=== PATIENT | male | born 1955 | race Caucasian/White ===

== ENCOUNTER 2017-06-14 09:39 | Emergency (ER) | payer OTHER ==
[~2017-06-14] VITALS: Ht 177.8 cm; Wt 70.8 kg
[2017-06-14 10:06] VITALS: BP_SYST 176
[2017-06-14] MEDS ORDERED: ACETAMINOPHEN/CODEINE 300 MG-30 MG TABLET PO ONE (11:00)
[2017-06-14 11:38] VITALS: BP_SYST 177
== END 2017-06-14 11:38 | disposition home or self-care (01) ==
LOC: SED 09:39
DX: S32.10XA Unspecified fracture of sacrum, initial encounter for closed fracture (principal); S32.2XXA Fracture of coccyx, initial encounter for closed fracture; S00.03XA Contusion of scalp, initial encounter; I13.11 Hypertensive heart and chronic kidney disease without heart failure, with stage 5 chronic kidney disease, or end stage renal disease; E11.22 Type 2 diabetes mellitus with diabetic chronic kidney disease; N18.6 End stage renal disease; Z99.2 Dependence on renal dialysis; Z85.828 Personal history of other malignant neoplasm of skin; W19.XXXA Unspecified fall, initial encounter; Y93.89 Activity, other specified; Y92.091 Bathroom in other non-institutional residence as the place of occurrence of the external cause; Y99.8 Other external cause status
CPT/HCPCS: 70450-TC; 72220-TC; 99284

== ENCOUNTER 2018-02-14 11:06 | Inpatient (IN) | payer OTHER, MEDICAID ==
[~2018-02-14] VITALS: Ht 177.8 cm; Wt 74.2 kg
[~2018-02-14 11:06] MED LIST: ALLO100T PO; CARV12.548 PO; CEL20 PO; CLOP75TA2 PO; ISOS60TA4 PO; LIP20 PO; MELA3TAB PO; NEPH PO; TAMS-11 PO; VITD2000 PO
[2018-02-14 11:07] VITALS: BP_SYST 156
[2018-02-14] MEDS ORDERED: NACL 0.9% 1,000 ML IV ONE (11:45)
[2018-02-14] MEDS ORDERED: ASPIRIN 81 MG TAB.CHEW PO ONE (11:45)
[2018-02-14 12:38] LABS: CALCIUM 8.3 mg/dL (8.4-11.0); POTASSIUM 5.4 mmol/L (3.5-5.1)
[2018-02-14 12:40] LABS: BASOPHILS % (AUTO) 0.1 % (0.0-2.0); HEMATOCRIT 32.9 % (36-54); HEMOGLOBIN 10.4 g/dL (14.0-18.0); LYMPHOCYTES # (AUTO) 1.2 K/uL (1.0-5.5); LYMPHOCYTES % (AUTO) 6.7 % (20.5-51.5); MEAN CORPUSCULAR HEMOGLOBIN 28 pg (27-31); MEAN CORPUSCULAR HGB CONC 32 % (32-36); MEAN CORPUSCULAR VOLUME 88 fL (79.0-98.0); MONOCYTES % (AUTO) 5.5 % (1.7-9.3); NEUTROPHILS # (AUTO) 16.1 K/uL (1.8-7.7); NEUTROPHILS % (AUTO) 87.7 % (40.0-70.0); PLATELET COUNT (AUTO) 226 K/uL (130-430); RED BLOOD CELL COUNT(AUTO) 3.75 MIL/uL (4.2-6.2)
[2018-02-14 12:45] LABS: TOTAL BILIRUBIN 0.6 mg/dL (0.0-1.0)
[2018-02-14 12:46] LABS: ALBUMIN 3.1 g/dL (3.4-4.8)
[2018-02-14 12:47] LABS: CREATININE 7.79 mg/dL (0.55-1.30)
[2018-02-14 12:49] LABS: WHITE BLOOD COUNT (AUTO) 18.3 K/uL (4.8-10.8)
[2018-02-14 12:50] LABS: INR 1.1 (0.80-1.20); PROTHROMBIN TIME 11.1 SECS (9.5-12.5)
[2018-02-14] MEDS ORDERED: SODIUM POLYSTYRENE SULFONATE 15 GM/60 ML UDBTL PO ONE (13:15)
[2018-02-14] MEDS ORDERED: PIPERACILLIN/TAZO 3.375 GM in NS 50 ML IV ONE (13:30)
[2018-02-14] MEDS ORDERED: PIPERACILLIN/TAZOBACTAM 3.375 GM/VIAL (ZOSYN) IV ONE (14:26)
[2018-02-14 15:02] VITALS: BP_SYST 152
[2018-02-14] MEDS ORDERED: HYDROcodone/ACETAMIN 10-325 MG TAB PO PRN (15:30)
[2018-02-14] MEDS ORDERED: HYDROcodone/ACETAMIN 5-325 MG TAB (NORCO/ VICODIN) PO PRN (15:30)
[2018-02-14] MEDS: PIPERACILLIN/TAZO 2.25G/DEX-IS 50 ML IV SCH (17:32)
[2018-02-14 19:00] VITALS: BP_SYST 138
[2018-02-14 19:19] VITALS: BP_SYST 140
[2018-02-14 20:00] VITALS: BP_SYST 138
[2018-02-14] MEDS ORDERED: NITROGLYCERIN 0.4 MG TAB.SUBL SL PRN (20:45)
[2018-02-14] MEDS ORDERED: MORPHINE 2 MG/ML INJ. SYRINGE IVP PRN (20:45)
[2018-02-14] MEDS ORDERED: NITROGLYCERIN 0.4 MG TAB.SUBL SL ONE (20:52)
[2018-02-15 00:17] VITALS: BP_SYST 136
[2018-02-15] MEDS: CARVEDILOL 12.5 MG TABLET (COREG) PO SCH ×3 (00:21→21:00)
[2018-02-15] MEDS: PIPERACILLIN/TAZO 2.25G/DEX-IS 50 ML IV SCH ×4 (00:22→23:10)
[2018-02-15] MEDS: NORMAL SALINE 5 ML DISP.SYRIN IVF SCH ×4 (00:24→21:08)
[2018-02-15 06:45] LABS: CALCIUM 8.6 mg/dL (8.4-11.0); CREATININE 4.86 mg/dL (0.55-1.30); PHOSPHORUS 4.4 mg/dL (2.7-4.5); POTASSIUM 3.6 mmol/L (3.5-5.1)
[2018-02-15 07:27] LABS: BASOPHILS % (AUTO) 0.1 % (0.0-2.0); EOSINOPHILS % (AUTO) 0.2 % (0.0-4.0); HEMATOCRIT 29.6 % (36-54); HEMOGLOBIN 9.8 g/dL (14.0-18.0); LYMPHOCYTES # (AUTO) 0.6 K/uL (1.0-5.5); MEAN CORPUSCULAR HEMOGLOBIN 29 pg (27-31); MEAN CORPUSCULAR HGB CONC 33 % (32-36); MEAN CORPUSCULAR VOLUME 88 fL (79.0-98.0); MONOCYTES # (AUTO) 0.7 K/uL (0.0-1.0); MONOCYTES % (AUTO) 5.3 % (1.7-9.3); NEUTROPHILS # (AUTO) 11.5 K/uL (1.8-7.7); PLATELET COUNT (AUTO) 201 K/uL (130-430); RED BLOOD CELL COUNT(AUTO) 3.34 MIL/uL (4.2-6.2); RED CELL DISTRIBUTION WIDTH 17.4 % (9.0-15.0); WHITE BLOOD COUNT (AUTO) 12.8 K/uL (4.8-10.8)
[2018-02-15 08:05] VITALS: BP_SYST 123
[2018-02-15] MEDS: ATORVASTATIN 20 MG TABLET PO SCH (09:15)
[2018-02-15] MEDS: NEPHROVITE, (FOLIC ACID/VITAMIN B COMP W-C 1 TAB) PO SCH (09:15)
[2018-02-15] MEDS: TAMSULOSIN HCL 0.4 MG CAP PO SCH (09:15)
[2018-02-15] MEDS: CHOLECALCIFEROL (VITAMIN D3) 2,000 UNIT TABLET PO SCH (09:15)
[2018-02-15] MEDS: CITALOPRAM HYDROBROMIDE 20 MG TABLET PO SCH (09:15)
[2018-02-15] MEDS: CLOPIDOGREL BISULFATE 75 MG TABLET PO SCH (09:16)
[2018-02-15] MEDS: ISOSORBIDE MONONITRATE 30 MG TAB.ER.24H PO SCH (09:16)
[2018-02-15] MEDS: ALLOPURINOL 100 MG TABLET (ZYLOPRIM) PO SCH (09:17)
[2018-02-15 11:04] LABS: NEUTROPHILS % (AUTO) 89.4 % (40.0-70.0)
[2018-02-15 12:40] VITALS: BP_SYST 104
[2018-02-15 13:11] VITALS: BP_SYST 98
[2018-02-15 20:42] VITALS: BP_SYST 100
[2018-02-15] MEDS ORDERED: VANCOMYCIN HCL 1,000 MG in NS 250 ML IV SCH (21:00)
[2018-02-16 02:12] VITALS: BP_SYST 107
[2018-02-16] MEDS: PIPERACILLIN/TAZO 2.25G/DEX-IS 50 ML IV SCH ×3 (05:06→21:33)
[2018-02-16] MEDS: NORMAL SALINE 5 ML DISP.SYRIN IVF SCH ×3 (05:07→21:32)
[2018-02-16 06:39] LABS: BASOPHILS % (AUTO) 0.3 % (0.0-2.0); EOSINOPHILS # (AUTO) 0.1 K/uL (0.0-0.4); EOSINOPHILS % (AUTO) 0.8 % (0.0-4.0); HEMATOCRIT 27.1 % (36-54); HEMOGLOBIN 8.7 g/dL (14.0-18.0); LYMPHOCYTES % (AUTO) 8.4 % (20.5-51.5); MEAN CORPUSCULAR HEMOGLOBIN 29 pg (27-31); MEAN CORPUSCULAR HGB CONC 32 % (32-36); MEAN CORPUSCULAR VOLUME 89 fL (79.0-98.0); MONOCYTES # (AUTO) 0.6 K/uL (0.0-1.0); MONOCYTES % (AUTO) 4.9 % (1.7-9.3); NEUTROPHILS # (AUTO) 9.8 K/uL (1.8-7.7); NEUTROPHILS % (AUTO) 85.6 % (40.0-70.0); PLATELET COUNT (AUTO) 188 K/uL (130-430); RED BLOOD CELL COUNT(AUTO) 3.03 MIL/uL (4.2-6.2); RED CELL DISTRIBUTION WIDTH 16.7 % (9.0-15.0); WHITE BLOOD COUNT (AUTO) 11.5 K/uL (4.8-10.8)
[2018-02-16 07:02] LABS: CALCIUM 7.8 mg/dL (8.4-11.0); CREATININE 6.57 mg/dL (0.55-1.30); POTASSIUM 3.5 mmol/L (3.5-5.1)
[2018-02-16 07:19] LABS: ALBUMIN 2.3 g/dL (3.4-4.8); PHOSPHORUS 5.7 mg/dL (2.7-4.5); TOTAL BILIRUBIN 0.6 mg/dL (0.0-1.0)
[2018-02-16 08:00] VITALS: BP_SYST 103
[2018-02-16] MEDS: ACETAMINOPHEN 325 MG TABLET PO PRN (08:28)
[2018-02-16] MEDS: ISOSORBIDE MONONITRATE 30 MG TAB.ER.24H PO SCH (09:00)
[2018-02-16] MEDS: CARVEDILOL 12.5 MG TABLET (COREG) PO SCH ×2 (09:00→21:31)
[2018-02-16] MEDS: CHOLECALCIFEROL (VITAMIN D3) 2,000 UNIT TABLET PO SCH (09:01)
[2018-02-16] MEDS: ATORVASTATIN 20 MG TABLET PO SCH (09:01)
[2018-02-16] MEDS: CITALOPRAM HYDROBROMIDE 20 MG TABLET PO SCH (09:01)
[2018-02-16] MEDS: NEPHROVITE, (FOLIC ACID/VITAMIN B COMP W-C 1 TAB) PO SCH (09:01)
[2018-02-16] MEDS: TAMSULOSIN HCL 0.4 MG CAP PO SCH (09:01)
[2018-02-16] MEDS: CLOPIDOGREL BISULFATE 75 MG TABLET PO SCH (09:01)
[2018-02-16] MEDS: ALLOPURINOL 100 MG TABLET (ZYLOPRIM) PO SCH (09:01)
[2018-02-16 09:20] LABS: C-REACTIVE PROTEIN QUANT 32.6 mg/dL (0-0.5)
[2018-02-16 10:44] LABS: ERYTHROCYTE SEDIMENTATION RATE 108 MM/HR (0-15)
[2018-02-16 11:42] VITALS: BP_SYST 126
[2018-02-16] MEDS ORDERED: LOSARTAN POTASSIUM 25 MG TABLET PO ONE (13:35)
[2018-02-16 15:01] VITALS: BP_SYST 106
[2018-02-16] MEDS ORDERED: VANCOMYCIN HCL 1,000 MG in NS 250 ML IV ONE (18:00)
[2018-02-16 20:58] VITALS: BP_SYST 142
[2018-02-17 02:41] VITALS: BP_SYST 116
[2018-02-17] MEDS: PIPERACILLIN/TAZO 2.25G/DEX-IS 50 ML IV SCH ×2 (05:00→13:08)
[2018-02-17] MEDS: NORMAL SALINE 5 ML DISP.SYRIN IVF SCH ×3 (05:05→21:08)
[2018-02-17 06:13] LABS: BASOPHILS % (AUTO) 0.1 % (0.0-2.0); EOSINOPHILS # (AUTO) 0.1 K/uL (0.0-0.4); EOSINOPHILS % (AUTO) 0.9 % (0.0-4.0); HEMATOCRIT 28.5 % (36-54); HEMOGLOBIN 9.4 g/dL (14.0-18.0); LYMPHOCYTES % (AUTO) 10.2 % (20.5-51.5); MEAN CORPUSCULAR HEMOGLOBIN 29 pg (27-31); MEAN CORPUSCULAR HGB CONC 33 % (32-36); MEAN CORPUSCULAR VOLUME 89 fL (79.0-98.0); MONOCYTES # (AUTO) 0.6 K/uL (0.0-1.0); NEUTROPHILS # (AUTO) 8.5 K/uL (1.8-7.7); NEUTROPHILS % (AUTO) 82.8 % (40.0-70.0); PLATELET COUNT (AUTO) 202 K/uL (130-430); RED BLOOD CELL COUNT(AUTO) 3.21 MIL/uL (4.2-6.2); RED CELL DISTRIBUTION WIDTH 17.2 % (9.0-15.0); WHITE BLOOD COUNT (AUTO) 10.2 K/uL (4.8-10.8)
[2018-02-17 06:43] LABS: CALCIUM 8.4 mg/dL (8.4-11.0); CREATININE 5.36 mg/dL (0.55-1.30); PHOSPHORUS 4.9 mg/dL (2.7-4.5); POTASSIUM 3.4 mmol/L (3.5-5.1)
[2018-02-17 07:34] LABS: C-REACTIVE PROTEIN QUANT 24.1 mg/dL (0-0.5)
[2018-02-17] MEDS: CITALOPRAM HYDROBROMIDE 20 MG TABLET PO SCH (07:57)
[2018-02-17] MEDS: ALLOPURINOL 100 MG TABLET (ZYLOPRIM) PO SCH (07:57)
[2018-02-17] MEDS: CARVEDILOL 12.5 MG TABLET (COREG) PO SCH ×2 (07:57→21:07)
[2018-02-17] MEDS: NEPHROVITE, (FOLIC ACID/VITAMIN B COMP W-C 1 TAB) PO SCH (07:57)
[2018-02-17] MEDS: ATORVASTATIN 20 MG TABLET PO SCH (07:58)
[2018-02-17] MEDS: LOSARTAN POTASSIUM 25 MG TABLET PO SCH (07:58)
[2018-02-17] MEDS: CHOLECALCIFEROL (VITAMIN D3) 2,000 UNIT TABLET PO SCH (07:58)
[2018-02-17] MEDS: CLOPIDOGREL BISULFATE 75 MG TABLET PO SCH (07:58)
[2018-02-17] MEDS: ISOSORBIDE MONONITRATE 30 MG TAB.ER.24H PO SCH (07:58)
[2018-02-17 07:59] LABS: ERYTHROCYTE SEDIMENTATION RATE 112 MM/HR (0-15)
[2018-02-17 08:00] VITALS: BP_SYST 135
[2018-02-17] MEDS: ACETAMINOPHEN 325 MG TABLET PO PRN ×2 (08:00→16:35)
[2018-02-17] MEDS: TAMSULOSIN HCL 0.4 MG CAP PO SCH (08:54)
[2018-02-17] MEDS ORDERED: POTASSIUM CHLORIDE 20 MEQ TAB.PRT.SR PO ONE (10:00)
[2018-02-17 13:40] VITALS: BP_SYST 101
[2018-02-17] MEDS: NAFCILLIN SODIUM 2 GM in NS 100 ML IV SCH ×3 (15:31→23:28)
[2018-02-17] MEDS: cefTRIAXone 2 GM in D5W 50 ML IV SCH (16:11)
[2018-02-17 17:14] VITALS: BP_SYST 99
[2018-02-17] MEDS ORDERED: IPRATROPIUM/ALBUTEROL SULFATE 3 ML AMPUL.NEB (DUONEB) INH PRN (17:15)
[2018-02-17 23:01] VITALS: BP_SYST 103
[2018-02-18] MEDS: ACETAMINOPHEN 325 MG TABLET PO PRN ×2 (04:16→13:49)
[2018-02-18] MEDS: NAFCILLIN SODIUM 2 GM in NS 100 ML IV SCH ×6 (04:17→22:29)
[2018-02-18] MEDS: NORMAL SALINE 5 ML DISP.SYRIN IVF SCH ×3 (06:53→21:49)
[2018-02-18 07:04] LABS: CALCIUM 7.9 mg/dL (8.4-11.0); CREATININE 6.78 mg/dL (0.55-1.30); PHOSPHORUS 6.2 mg/dL (2.7-4.5); POTASSIUM 4.2 mmol/L (3.5-5.1); VANCOMYCIN,RANDOM 21.9 ug/mL
[2018-02-18 07:18] LABS: BASOPHILS % (AUTO) 0.2 % (0.0-2.0); EOSINOPHILS # (AUTO) 0.1 K/uL (0.0-0.4); EOSINOPHILS % (AUTO) 1.6 % (0.0-4.0); HEMATOCRIT 26.8 % (36-54); HEMOGLOBIN 8.5 g/dL (14.0-18.0); LYMPHOCYTES # (AUTO) 1.1 K/uL (1.0-5.5); LYMPHOCYTES % (AUTO) 12.1 % (20.5-51.5); MEAN CORPUSCULAR HEMOGLOBIN 28 pg (27-31); MEAN CORPUSCULAR HGB CONC 32 % (32-36); MEAN CORPUSCULAR VOLUME 89 fL (79.0-98.0); MONOCYTES # (AUTO) 0.6 K/uL (0.0-1.0); MONOCYTES % (AUTO) 6.3 % (1.7-9.3); NEUTROPHILS # (AUTO) 7.4 K/uL (1.8-7.7); NEUTROPHILS % (AUTO) 79.8 % (40.0-70.0); PLATELET COUNT (AUTO) 195 K/uL (130-430); RED BLOOD CELL COUNT(AUTO) 3.01 MIL/uL (4.2-6.2); RED CELL DISTRIBUTION WIDTH 17.1 % (9.0-15.0); WHITE BLOOD COUNT (AUTO) 9.2 K/uL (4.8-10.8)
[2018-02-18 07:23] LABS: C-REACTIVE PROTEIN QUANT 19.9 mg/dL (0-0.5)
[2018-02-18 08:02] VITALS: BP_SYST 105
[2018-02-18] MEDS: CARVEDILOL 12.5 MG TABLET (COREG) PO SCH ×2 (09:00→20:53)
[2018-02-18] MEDS: NEPHROVITE, (FOLIC ACID/VITAMIN B COMP W-C 1 TAB) PO SCH (09:06)
[2018-02-18] MEDS: CHOLECALCIFEROL (VITAMIN D3) 2,000 UNIT TABLET PO SCH (09:06)
[2018-02-18] MEDS: ATORVASTATIN 20 MG TABLET PO SCH (09:06)
[2018-02-18] MEDS: ISOSORBIDE MONONITRATE 30 MG TAB.ER.24H PO SCH (09:07)
[2018-02-18] MEDS: ALLOPURINOL 100 MG TABLET (ZYLOPRIM) PO SCH (09:07)
[2018-02-18] MEDS: TAMSULOSIN HCL 0.4 MG CAP PO SCH (09:07)
[2018-02-18] MEDS: CLOPIDOGREL BISULFATE 75 MG TABLET PO SCH (09:07)
[2018-02-18] MEDS: CITALOPRAM HYDROBROMIDE 20 MG TABLET PO SCH (09:07)
[2018-02-18] MEDS: LOSARTAN POTASSIUM 25 MG TABLET PO SCH (09:08)
[2018-02-18 09:21] LABS: ERYTHROCYTE SEDIMENTATION RATE 108 MM/HR (0-15)
[2018-02-18 10:31] LABS: INR 1.1 (0.80-1.20); PROTHROMBIN TIME 10.6 SECS (9.5-12.5)
[2018-02-18 12:31] VITALS: BP_SYST 106
[2018-02-18] MEDS: DIPHENHYDRAMINE INJ 50 MG/ML VIAL IVP PRN ×2 (16:13→22:42)
[2018-02-18] MEDS: cefTRIAXone 2 GM in D5W 50 ML IV SCH (16:13)
[2018-02-18 16:44] VITALS: BP_SYST 99
[2018-02-18 20:00] VITALS: BP_SYST 91
[2018-02-18] MEDS: MELATONIN 3 MG PO SCH (20:40)
[2018-02-18 23:46] VITALS: BP_SYST 107
[2018-02-19] MEDS: NAFCILLIN SODIUM 2 GM in NS 100 ML IV SCH ×6 (02:23→23:54)
[2018-02-19] MEDS: DIPHENHYDRAMINE INJ 50 MG/ML VIAL IVP PRN (04:33)
[2018-02-19] MEDS: NORMAL SALINE 5 ML DISP.SYRIN IVF SCH ×3 (05:39→22:06)
[2018-02-19] MEDS: ACETAMINOPHEN 325 MG TABLET PO PRN (05:41)
[2018-02-19 06:47] LABS: ALBUMIN 1.9 g/dL (3.4-4.8); PHOSPHORUS 6.9 mg/dL (2.7-4.5); POTASSIUM 4.3 mmol/L (3.5-5.1); TOTAL BILIRUBIN 3.7 mg/dL (0.0-1.0)
[2018-02-19 07:12] LABS: BASOPHILS % (AUTO) 0.3 % (0.0-2.0); EOSINOPHILS # (AUTO) 0.2 K/uL (0.0-0.4); EOSINOPHILS % (AUTO) 2.9 % (0.0-4.0); HEMATOCRIT 28.1 % (36-54); HEMOGLOBIN 9.1 g/dL (14.0-18.0); LYMPHOCYTES # (AUTO) 0.8 K/uL (1.0-5.5); LYMPHOCYTES % (AUTO) 9.3 % (20.5-51.5); MEAN CORPUSCULAR HEMOGLOBIN 29 pg (27-31); MEAN CORPUSCULAR HGB CONC 32 % (32-36); MEAN CORPUSCULAR VOLUME 89 fL (79.0-98.0); MONOCYTES # (AUTO) 0.5 K/uL (0.0-1.0); MONOCYTES % (AUTO) 5.8 % (1.7-9.3); NEUTROPHILS # (AUTO) 6.6 K/uL (1.8-7.7); PLATELET COUNT (AUTO) 230 K/uL (130-430); RED BLOOD CELL COUNT(AUTO) 3.18 MIL/uL (4.2-6.2); WHITE BLOOD COUNT (AUTO) 8.1 K/uL (4.8-10.8)
[2018-02-19 07:18] LABS: C-REACTIVE PROTEIN QUANT 19.4 mg/dL (0-0.5)
[2018-02-19 07:21] LABS: CREATININE 7.85 mg/dL (0.55-1.30)
[2018-02-19 08:33] LABS: NEUTROPHILS % (AUTO) 81.7 % (40.0-70.0)
[2018-02-19] MEDS ORDERED: EPOETIN ALFA 3,000 UNITS/ML VIAL SUBCUT SCH ×2 (09:00→09:16)
[2018-02-19] MEDS: ATORVASTATIN 20 MG TABLET PO SCH (09:02)
[2018-02-19] MEDS: CARVEDILOL 12.5 MG TABLET (COREG) PO SCH ×2 (09:02→22:05)
[2018-02-19] MEDS: CITALOPRAM HYDROBROMIDE 20 MG TABLET PO SCH (09:03)
[2018-02-19] MEDS: NEPHROVITE, (FOLIC ACID/VITAMIN B COMP W-C 1 TAB) PO SCH (09:03)
[2018-02-19] MEDS: TAMSULOSIN HCL 0.4 MG CAP PO SCH (09:03)
[2018-02-19] MEDS: CHOLECALCIFEROL (VITAMIN D3) 2,000 UNIT TABLET PO SCH (09:03)
[2018-02-19] MEDS: ALLOPURINOL 100 MG TABLET (ZYLOPRIM) PO SCH (09:03)
[2018-02-19] MEDS: CLOPIDOGREL BISULFATE 75 MG TABLET PO SCH (09:04)
[2018-02-19] MEDS: LOSARTAN POTASSIUM 25 MG TABLET PO SCH (09:04)
[2018-02-19] MEDS: ISOSORBIDE MONONITRATE 30 MG TAB.ER.24H PO SCH (09:04)
[2018-02-19 09:34] LABS: ERYTHROCYTE SEDIMENTATION RATE 105 MM/HR (0-15)
[2018-02-19 10:51] VITALS: BP_SYST 128
[2018-02-19 12:37] VITALS: BP_SYST 130
[2018-02-19 16:14] VITALS: BP_SYST 113
[2018-02-19] MEDS: cefTRIAXone 2 GM in D5W 50 ML IV SCH (17:49)
[2018-02-19 20:00] VITALS: BP_SYST 124
[2018-02-19] MEDS: MELATONIN 3 MG PO SCH (21:00)
[2018-02-19] MEDS ORDERED: VANCOMYCIN HCL 1,000 MG in NS 250 ML IV ONE (21:00)
[2018-02-20 01:01] VITALS: BP_SYST 118
[2018-02-20] MEDS: NAFCILLIN SODIUM 2 GM in NS 100 ML IV SCH ×5 (03:52→18:42)
[2018-02-20 06:23] LABS: BASOPHILS % (AUTO) 0.3 % (0.0-2.0); EOSINOPHILS # (AUTO) 0.2 K/uL (0.0-0.4); EOSINOPHILS % (AUTO) 2.1 % (0.0-4.0); HEMATOCRIT 27.7 % (36-54); LYMPHOCYTES # (AUTO) 0.7 K/uL (1.0-5.5); LYMPHOCYTES % (AUTO) 8.6 % (20.5-51.5); MEAN CORPUSCULAR HEMOGLOBIN 29 pg (27-31); MEAN CORPUSCULAR HGB CONC 32 % (32-36); MEAN CORPUSCULAR VOLUME 88 fL (79.0-98.0); MONOCYTES # (AUTO) 0.5 K/uL (0.0-1.0); MONOCYTES % (AUTO) 5.9 % (1.7-9.3); NEUTROPHILS # (AUTO) 6.7 K/uL (1.8-7.7); PLATELET COUNT (AUTO) 268 K/uL (130-430); RED BLOOD CELL COUNT(AUTO) 3.14 MIL/uL (4.2-6.2); RED CELL DISTRIBUTION WIDTH 17.2 % (9.0-15.0); WHITE BLOOD COUNT (AUTO) 8.1 K/uL (4.8-10.8)
[2018-02-20 06:36] LABS: CREATININE 6.21 mg/dL (0.55-1.30); PHOSPHORUS 5.9 mg/dL (2.7-4.5); POTASSIUM 3.5 mmol/L (3.5-5.1)
[2018-02-20] MEDS: NORMAL SALINE 5 ML DISP.SYRIN IVF SCH ×2 (06:48→14:00)
[2018-02-20 07:24] LABS: C-REACTIVE PROTEIN QUANT 27.6 mg/dL (0-0.5)
[2018-02-20 07:30] VITALS: BP_SYST 130
[2018-02-20 07:31] LABS: NEUTROPHILS % (AUTO) 83.1 % (40.0-70.0)
[2018-02-20 07:50] VITALS: BP_SYST 130
[2018-02-20 08:48] LABS: ERYTHROCYTE SEDIMENTATION RATE 112 MM/HR (0-15)
[2018-02-20] MEDS: CHOLECALCIFEROL (VITAMIN D3) 2,000 UNIT TABLET PO SCH (09:21)
[2018-02-20] MEDS: ISOSORBIDE MONONITRATE 30 MG TAB.ER.24H PO SCH (09:22)
[2018-02-20] MEDS: NEPHROVITE, (FOLIC ACID/VITAMIN B COMP W-C 1 TAB) PO SCH (09:22)
[2018-02-20] MEDS: ALLOPURINOL 100 MG TABLET (ZYLOPRIM) PO SCH (09:22)
[2018-02-20] MEDS: CITALOPRAM HYDROBROMIDE 20 MG TABLET PO SCH (09:22)
[2018-02-20] MEDS: ATORVASTATIN 20 MG TABLET PO SCH (09:22)
[2018-02-20] MEDS: CLOPIDOGREL BISULFATE 75 MG TABLET PO SCH (09:22)
[2018-02-20] MEDS: TAMSULOSIN HCL 0.4 MG CAP PO SCH (09:22)
[2018-02-20] MEDS: CARVEDILOL 12.5 MG TABLET (COREG) PO SCH (09:23)
[2018-02-20] MEDS: LOSARTAN POTASSIUM 25 MG TABLET PO SCH (09:23)
[2018-02-20 12:24] VITALS: BP_SYST 102
[2018-02-20] MEDS ORDERED: MENTHOL/ZINC OXIDE 113 GM OINT. TP PRN (12:45)
[2018-02-20 16:59] VITALS: BP_SYST 110
[2018-02-20] MEDS: cefTRIAXone 2 GM in D5W 50 ML IV SCH (16:59)
[2018-02-20] MEDS ORDERED: ANTIFUNGAL CLEAR OINTMENT TP SCH ×2 (20:00→21:00)
[2018-02-20 20:26] VITALS: BP_SYST 136
== END 2018-02-20 20:52 | DRG 871 ==
LOC: SED 11:06 → STU 13:24 → SMU 02-17 10:00
PROVIDERS: ADMIT Preventive Medicine Preventive Medicine/Occupational Environmental Medicine; ATTEND Preventive Medicine Preventive Medicine/Occupational Environmental Medicine
PROC: 5A1D70Z Performance of Urinary Filtration, Intermittent, Less than 6 Hours Per Day (ICD-10-PCS; principal; 2018-02-14)
PROC: 5A1D70Z Performance of Urinary Filtration, Intermittent, Less than 6 Hours Per Day (ICD-10-PCS; 2018-02-18)
PROC: 5A1D70Z Performance of Urinary Filtration, Intermittent, Less than 6 Hours Per Day (ICD-10-PCS; 2018-02-19)
DX: A41.9 Sepsis, unspecified organism (principal); N18.6 End stage renal disease; I21.A1 Myocardial infarction type 2; G93.41 Metabolic encephalopathy; J18.9 Pneumonia, unspecified organism; I13.2 Hypertensive heart and chronic kidney disease with heart failure and with stage 5 chronic kidney disease, or end stage renal disease; E87.1 Hypo-osmolality and hyponatremia; I50.30 Unspecified diastolic (congestive) heart failure; L03.119 Cellulitis of unspecified part of limb; N17.9 Acute kidney failure, unspecified; R17 Unspecified jaundice; I42.9 Cardiomyopathy, unspecified; D64.9 Anemia, unspecified; E55.9 Vitamin D deficiency, unspecified; E11.22 Type 2 diabetes mellitus with diabetic chronic kidney disease; D63.8 Anemia in other chronic diseases classified elsewhere; E11.21 Type 2 diabetes mellitus with diabetic nephropathy; E11.40 Type 2 diabetes mellitus with diabetic neuropathy, unspecified; E11.51 Type 2 diabetes mellitus with diabetic peripheral angiopathy without gangrene; E11.65 Type 2 diabetes mellitus with hyperglycemia; E78.5 Hyperlipidemia, unspecified; E83.39 Other disorders of phosphorus metabolism; E83.52 Hypercalcemia; E87.6 Hypokalemia; E88.09 Other disorders of plasma-protein metabolism, not elsewhere classified; G47.00 Insomnia, unspecified; I08.0 Rheumatic disorders of both mitral and aortic valves; I25.10 Atherosclerotic heart disease of native coronary artery without angina pectoris; I25.2 Old myocardial infarction; I27.21 Secondary pulmonary arterial hypertension; M10.9 Gout, unspecified; Z96.651 Presence of right artificial knee joint; W18.30XA Fall on same level, unspecified, initial encounter; Y93.01 Activity, walking, marching and hiking; N40.0 Benign prostatic hyperplasia without lower urinary tract symptoms; Z85.828 Personal history of other malignant neoplasm of skin; Z89.511 Acquired absence of right leg below knee; Z91.81 History of falling; Z99.2 Dependence on renal dialysis; Y92.89 Other specified places as the place of occurrence of the external cause; Y99.8 Other external cause status; Z72.0 Tobacco use
CPT/HCPCS: 36415; 70450-TC; 71045; 71250-TC; 80048; 80053; 80202-TC; 83605; 83735-TC; 83880; 84100-TC; 84484; 85025; 85610-TC; 85651-TC; 85730-TC; 86140; 87040-TC; 87081; 90935; 90937; 93005; 93306; 93922; 93971; 94640; 95816; 97110-GP; 97112-GP; 97530-GP; 99291; J0696; J0885; J1200; J2543; J3370; J3490; J7030; J7050; J7060; J7620

== ENCOUNTER 2018-03-05 08:26 | Inpatient (IN) | payer OTHER, MEDICAID ==
[~2018-03-05] VITALS: Ht 172.7 cm; Wt 73.3 kg
[2018-03-05 08:31] VITALS: BP_SYST 160
[2018-03-05 08:57] LABS: BASOPHILS # (AUTO) 0.1 K/uL (0.0-0.2); BASOPHILS % (AUTO) 0.7 % (0.0-2.0); EOSINOPHILS # (AUTO) 0.1 K/uL (0.0-0.4); EOSINOPHILS % (AUTO) 1.4 % (0.0-4.0); HEMATOCRIT 24.5 % (36-54); HEMOGLOBIN 7.7 g/dL (14.0-18.0); LYMPHOCYTES # (AUTO) 1.2 K/uL (1.0-5.5); LYMPHOCYTES % (AUTO) 14.6 % (20.5-51.5); MEAN CORPUSCULAR HEMOGLOBIN 28 pg (27-31); MEAN CORPUSCULAR HGB CONC 31 % (32-36); MEAN CORPUSCULAR VOLUME 89 fL (79.0-98.0); MONOCYTES # (AUTO) 0.6 K/uL (0.0-1.0); MONOCYTES % (AUTO) 7.2 % (1.7-9.3); NEUTROPHILS # (AUTO) 6.1 K/uL (1.8-7.7); NEUTROPHILS % (AUTO) 76.1 % (40.0-70.0); PLATELET COUNT (AUTO) 322 K/uL (130-430); RED BLOOD CELL COUNT(AUTO) 2.75 MIL/uL (4.2-6.2); RED CELL DISTRIBUTION WIDTH 18.6 % (9.0-15.0); WHITE BLOOD COUNT (AUTO) 8.1 K/uL (4.8-10.8)
[2018-03-05] MEDS ORDERED: DIPHENHYDRAMINE INJ 50 MG/ML VIAL IVP ONE (09:30)
[2018-03-05] MEDS ORDERED: MORPHINE 4 MG/ML INJ. SYRINGE IVP ONE (09:30)
[2018-03-05 09:31] LABS: CALCIUM 8.9 mg/dL (8.4-11.0); CREATININE 7.17 mg/dL (0.55-1.30); POTASSIUM 4.3 mmol/L (3.5-5.1)
[2018-03-05 09:36] LABS: ALBUMIN 1.9 g/dL (3.4-4.8); TOTAL BILIRUBIN 0.9 mg/dL (0.0-1.0)
[2018-03-05] MEDS ORDERED: BEN50 PO (10:51)
[2018-03-05] MEDS ORDERED: cefTRIAXone 1 GM IVPB PREMIX 50 ML IV ONE (11:15)
[2018-03-05 11:38] VITALS: BP_SYST 149
[2018-03-05 16:05] VITALS: BP_SYST 155
[2018-03-05] MEDS ORDERED: LevALBUTEROL HCL 1.25 MG/0.5 ML *CONC.* VIAL.NEB (XOPENEX CONC.) INH PRN (16:15)
[2018-03-05 16:43] VITALS: BP_SYST 149
[2018-03-05 20:00] VITALS: BP_SYST 157
[2018-03-05] MEDS: AZITHROMYCIN 500 MG in NS 250 ML IV SCH (20:58)
[2018-03-05] MEDS: MEGESTROL ACETATE 400 MG/10 ML UDC PO SCH (20:59)
[2018-03-05] MEDS: CARVEDILOL 12.5 MG TABLET (COREG) PO SCH (20:59)
[2018-03-05] MEDS: LevALBUTEROL HCL 1.25 MG/0.5 ML *CONC.* VIAL.NEB (XOPENEX CONC.) INH SCH (23:15)
[2018-03-06] MEDS: DIPHENHYDRAMINE HCL 50 MG CAPSULE PO PRN ×2 (00:03→23:25)
[2018-03-06 04:00] VITALS: BP_SYST 148
[2018-03-06 07:38] LABS: BASOPHILS % (AUTO) 0.3 % (0.0-2.0); EOSINOPHILS # (AUTO) 0.2 K/uL (0.0-0.4); EOSINOPHILS % (AUTO) 2.1 % (0.0-4.0); HEMATOCRIT 25.7 % (36-54); HEMOGLOBIN 8.4 g/dL (14.0-18.0); LYMPHOCYTES # (AUTO) 1.2 K/uL (1.0-5.5); LYMPHOCYTES % (AUTO) 15.7 % (20.5-51.5); MEAN CORPUSCULAR HEMOGLOBIN 29 pg (27-31); MEAN CORPUSCULAR HGB CONC 33 % (32-36); MEAN CORPUSCULAR VOLUME 90 fL (79.0-98.0); MONOCYTES # (AUTO) 0.7 K/uL (0.0-1.0); MONOCYTES % (AUTO) 8.5 % (1.7-9.3); NEUTROPHILS # (AUTO) 5.8 K/uL (1.8-7.7); PLATELET COUNT (AUTO) 298 K/uL (130-430); RED BLOOD CELL COUNT(AUTO) 2.87 MIL/uL (4.2-6.2); RED CELL DISTRIBUTION WIDTH 17.7 % (9.0-15.0); WHITE BLOOD COUNT (AUTO) 7.9 K/uL (4.8-10.8)
[2018-03-06 07:47] LABS: CALCIUM 8.7 mg/dL (8.4-11.0); CREATININE 5.12 mg/dL (0.55-1.30); POTASSIUM 4.2 mmol/L (3.5-5.1)
[2018-03-06 08:02] LABS: TOTAL IRON BIND. CAPACITY 148 ug/dL (250-450)
[2018-03-06] MEDS: LevALBUTEROL HCL 1.25 MG/0.5 ML *CONC.* VIAL.NEB (XOPENEX CONC.) INH SCH ×3 (08:06→23:28)
[2018-03-06 08:10] VITALS: BP_SYST 152
[2018-03-06] MEDS: cefTRIAXone 1 GM in D5W 50 ML IV SCH (08:32)
[2018-03-06] MEDS: CLOPIDOGREL BISULFATE 75 MG TABLET PO SCH (08:33)
[2018-03-06] MEDS: NEPHROVITE, (FOLIC ACID/VITAMIN B COMP W-C 1 TAB) PO SCH (08:33)
[2018-03-06] MEDS: CHOLECALCIFEROL (VITAMIN D3) 2,000 UNIT TABLET PO SCH (08:33)
[2018-03-06] MEDS: ATORVASTATIN 20 MG TABLET PO SCH (08:33)
[2018-03-06] MEDS: CITALOPRAM HYDROBROMIDE 20 MG TABLET PO SCH (08:34)
[2018-03-06] MEDS: CARVEDILOL 12.5 MG TABLET (COREG) PO SCH ×2 (08:34→20:17)
[2018-03-06] MEDS: MEGESTROL ACETATE 400 MG/10 ML UDC PO SCH ×2 (08:34→20:16)
[2018-03-06] MEDS: ISOSORBIDE MONONITRATE 30 MG TAB.ER.24H PO SCH (08:34)
[2018-03-06] MEDS: TAMSULOSIN HCL 0.4 MG CAP PO SCH (08:34)
[2018-03-06] MEDS: ALLOPURINOL 100 MG TABLET (ZYLOPRIM) PO SCH (08:35)
[2018-03-06 10:52] LABS: NEUTROPHILS % (AUTO) 73.4 % (40.0-70.0)
[2018-03-06 12:36] VITALS: BP_SYST 135
[2018-03-06 16:35] VITALS: BP_SYST 144
[2018-03-06] MEDS: INSULIN REGULAR, HUMAN 100 UNITS/ML, 10 ML VIAL (novoLIN R) SUBCUT PRN ×2 (17:07→20:26)
[2018-03-06] MEDS: SOD FERRIC GLUC COMPLEX/SUC 125 MG in NS 100 ML IV SCH (19:00)
[2018-03-06 20:00] VITALS: BP_SYST 158
[2018-03-06] MEDS: AZITHROMYCIN 500 MG in NS 250 ML IV SCH (20:16)
[2018-03-07 02:07] VITALS: BP_SYST 160
[2018-03-07] MEDS: LevALBUTEROL HCL 1.25 MG/0.5 ML *CONC.* VIAL.NEB (XOPENEX CONC.) INH SCH ×3 (08:08→23:15)
[2018-03-07] MEDS ORDERED: EPOETIN ALFA 4,000 UNITS/ML VIAL SUBCUT SCH ×2 (09:00→17:00)
[2018-03-07] MEDS: ALLOPURINOL 100 MG TABLET (ZYLOPRIM) PO SCH (09:00)
[2018-03-07] MEDS: CITALOPRAM HYDROBROMIDE 20 MG TABLET PO SCH (09:17)
[2018-03-07] MEDS: cefTRIAXone 1 GM in D5W 50 ML IV SCH (09:17)
[2018-03-07] MEDS: TAMSULOSIN HCL 0.4 MG CAP PO SCH (09:17)
[2018-03-07] MEDS: ISOSORBIDE MONONITRATE 30 MG TAB.ER.24H PO SCH (09:17)
[2018-03-07] MEDS: CHOLECALCIFEROL (VITAMIN D3) 2,000 UNIT TABLET PO SCH (09:17)
[2018-03-07] MEDS: MEGESTROL ACETATE 400 MG/10 ML UDC PO SCH ×2 (09:17→21:51)
[2018-03-07] MEDS: CARVEDILOL 12.5 MG TABLET (COREG) PO SCH ×2 (09:18→21:51)
[2018-03-07] MEDS: CLOPIDOGREL BISULFATE 75 MG TABLET PO SCH (09:18)
[2018-03-07] MEDS: NEPHROVITE, (FOLIC ACID/VITAMIN B COMP W-C 1 TAB) PO SCH (09:18)
[2018-03-07] MEDS: ATORVASTATIN 20 MG TABLET PO SCH (09:18)
[2018-03-07 09:39] VITALS: BP_SYST 154
[2018-03-07 12:02] VITALS: BP_SYST 143
[2018-03-07 16:02] VITALS: BP_SYST 143
[2018-03-07] MEDS: INSULIN REGULAR, HUMAN 100 UNITS/ML, 10 ML VIAL (novoLIN R) SUBCUT PRN ×2 (17:49→22:09)
[2018-03-07] MEDS: SOD FERRIC GLUC COMPLEX/SUC 125 MG in NS 100 ML IV SCH (17:50)
[2018-03-07 21:49] VITALS: BP_SYST 163
[2018-03-07] MEDS: AZITHROMYCIN 500 MG in NS 250 ML IV SCH (21:50)
[2018-03-08] VITALS (7 sets, daily range): BP systolic 133–158
[2018-03-08] MEDS: LevALBUTEROL HCL 1.25 MG/0.5 ML *CONC.* VIAL.NEB (XOPENEX CONC.) INH SCH ×2 (07:15→15:48)
[2018-03-08] MEDS: MEGESTROL ACETATE 400 MG/10 ML UDC PO SCH ×2 (08:20→20:04)
[2018-03-08] MEDS: TAMSULOSIN HCL 0.4 MG CAP PO SCH (08:20)
[2018-03-08] MEDS: NEPHROVITE, (FOLIC ACID/VITAMIN B COMP W-C 1 TAB) PO SCH (08:20)
[2018-03-08] MEDS: CHOLECALCIFEROL (VITAMIN D3) 2,000 UNIT TABLET PO SCH (08:20)
[2018-03-08] MEDS: CITALOPRAM HYDROBROMIDE 20 MG TABLET PO SCH (08:20)
[2018-03-08] MEDS: cefTRIAXone 1 GM in D5W 50 ML IV SCH (08:20)
[2018-03-08] MEDS: ALLOPURINOL 100 MG TABLET (ZYLOPRIM) PO SCH (08:20)
[2018-03-08] MEDS: CLOPIDOGREL BISULFATE 75 MG TABLET PO SCH (08:20)
[2018-03-08] MEDS: ATORVASTATIN 20 MG TABLET PO SCH (08:21)
[2018-03-08] MEDS: ISOSORBIDE MONONITRATE 30 MG TAB.ER.24H PO SCH (08:23)
[2018-03-08] MEDS: CARVEDILOL 12.5 MG TABLET (COREG) PO SCH ×2 (08:23→20:04)
[2018-03-08] MEDS: INSULIN REGULAR, HUMAN 100 UNITS/ML, 10 ML VIAL (novoLIN R) SUBCUT PRN ×2 (11:44→17:07)
[2018-03-08] MEDS ORDERED: MENTHOL/ZINC OXIDE 113 GM OINT. TP PRN (13:45)
[2018-03-08] MEDS: SOD FERRIC GLUC COMPLEX/SUC 125 MG in NS 100 ML IV SCH (17:51)
[2018-03-08] MEDS ORDERED: PIPERACILLIN/TAZO 2.25G/DEX-IS 50 ML IV SCH (18:00)
[2018-03-08] MEDS ORDERED: VANCOMYCIN HCL 1 GM/NS PREMIX 250 ML IV ONE (19:00)
[2018-03-09] MEDS ORDERED: EPOETIN ALFA 4,000 UNITS/ML VIAL SUBCUT SCH (17:00)
== END 2018-03-08 20:47 | DRG 177 ==
LOC: SED 08:26 → STU 11:03 → SMU 03-07 19:20
PROVIDERS: ADMIT Family Medicine; ATTEND Family Medicine
PROC: 5A1D70Z Performance of Urinary Filtration, Intermittent, Less than 6 Hours Per Day (ICD-10-PCS; principal; 2018-03-05)
PROC: 5A1D70Z Performance of Urinary Filtration, Intermittent, Less than 6 Hours Per Day (ICD-10-PCS; 2018-03-07)
DX: J15.6 Pneumonia due to other Gram-negative bacteria (principal); N18.6 End stage renal disease; I12.0 Hypertensive chronic kidney disease with stage 5 chronic kidney disease or end stage renal disease; I69.354 Hemiplegia and hemiparesis following cerebral infarction affecting left non-dominant side; D50.9 Iron deficiency anemia, unspecified; D63.1 Anemia in chronic kidney disease; E11.22 Type 2 diabetes mellitus with diabetic chronic kidney disease; L89.629 Pressure ulcer of left heel, unspecified stage; Z88.8 Allergy status to other drugs, medicaments and biological substances; Z91.048 Other nonmedicinal substance allergy status; Z79.899 Other long term (current) drug therapy; Z79.02 Long term (current) use of antithrombotics/antiplatelets; Z85.828 Personal history of other malignant neoplasm of skin
CPT/HCPCS: 36415; 71045; 80048; 80053; 82550-TC; 82962; 83540-TC; 83550-TC; 83605; 83880; 84484; 85025; 87040-TC; 87081; 90935; 90937; 93005; 94640; 94760; 96365; 96375; 97110-GP; 97530-GP; 99285; G0378; J0456; J0696; J0885; J1200; J1815; J2270; J2543; J2916; J3370; J7030; J7050; J7060; J7612; Q0163

== ENCOUNTER 2018-04-22 13:21 | Inpatient (IN) | payer OTHER, MEDICAID ==
[~2018-04-22] VITALS: Ht 177.8 cm; Wt 72.6 kg
[~2018-04-22 13:21] MED LIST changes: +BEN50 PO
[2018-04-22 13:24] VITALS: BP_SYST 142
[2018-04-22] MEDS ORDERED: NACL 0.9% 1,000 ML IV ONE (13:24)
--- NOTE | 2018-04-22 13:25 | NUR ---
Placed in room 07 . Placed on monitor and storage bin tender, blood pressure machine and pulse oximeter. To gown for exam. Side rails up.
--- NOTE | 2018-04-22 13:28 | NUR ---
Pt brought by self, A&Ox4, pt presents to ER with SOB and possible pleural effusion, pt afebrile, denies pain, labored respirations, pt follows commands, VSS, pt arrived with O2 4 L NC. will continue to monitor.
--- NOTE | 2018-04-22 13:35 | NUR ---
Dr Lee at bedside examining patient
[2018-04-22] MEDS ORDERED: ALBUTEROL SULFATE 0.083% 2.5 MG/3 ML VIAL.NEB IH ONE (13:45)
[2018-04-22] MEDS ORDERED: methylPREDNISolone SOD SUCC/PF 62.5 MG/ML VIAL IVP ONE (13:45)
[2018-04-22] MEDS ORDERED: IPRATROPIUM BROM 0.5 MG/2.5 ML VIAL.NEB (ATROVENT) IH ONE (13:45)
--- NOTE | 2018-04-22 14:00 | NUR ---
Pt A&Ox4, VSS, respirations even and unlabored.
[2018-04-22 14:02] LABS: WHITE BLOOD COUNT (AUTO) 7.7 K/uL (4.8-10.8)
[2018-04-22 14:03] LABS: BASOPHILS % (AUTO) 0.6 % (0.0-2.0); CALCIUM 8.6 mg/dL (8.4-11.0); CREATININE 4.53 mg/dL (0.55-1.30); EOSINOPHILS % (AUTO) 3.8 % (0.0-4.0); HEMATOCRIT 26.9 % (36-54); HEMOGLOBIN 8.6 g/dL (14.0-18.0); LYMPHOCYTES # (AUTO) 1.3 K/uL (1.0-5.5); LYMPHOCYTES % (AUTO) 16.6 % (20.5-51.5); MEAN CORPUSCULAR HEMOGLOBIN 29 pg (27-31); MEAN CORPUSCULAR HGB CONC 32 % (32-36); MEAN CORPUSCULAR VOLUME 91 fL (79.0-98.0); MONOCYTES % (AUTO) 6.1 % (1.7-9.3); NEUTROPHILS # (AUTO) 5.6 K/uL (1.8-7.7); NEUTROPHILS % (AUTO) 72.9 % (40.0-70.0); PLATELET COUNT (AUTO) 211 K/uL (130-430); RED BLOOD CELL COUNT(AUTO) 2.94 MIL/uL (4.2-6.2); RED CELL DISTRIBUTION WIDTH 17.9 % (9.0-15.0)
[2018-04-22 14:04] LABS: EOSINOPHILS # (AUTO) 0.3 K/uL (0.0-0.4); MONOCYTES # (AUTO) 0.5 K/uL (0.0-1.0); POTASSIUM 4.2 mmol/L (3.5-5.1)
[2018-04-22 14:05] LABS: INR 1.1 (0.80-1.20)
[2018-04-22 14:07] LABS: ALBUMIN 2.3 g/dL (3.4-4.8); TOTAL BILIRUBIN 0.5 mg/dL (0.0-1.0)
[2018-04-22] MEDS ORDERED: methylPREDNISolone SOD SUCC/PF 62.5 MG/ML VIAL ONE (14:11)
[2018-04-22] MEDS ORDERED: ALBUTEROL SULFATE 0.083% 2.5 MG/3 ML VIAL.NEB INH ONE (14:39)
[2018-04-22] MEDS ORDERED: IPRATROPIUM BROM 0.5 MG/2.5 ML VIAL.NEB (ATROVENT) INH ONE (14:39)
--- NOTE | 2018-04-22 14:42 | NUR ---
Patient returned from CT via rpeoria, escorted by body technician.
--- NOTE | 2018-04-22 14:45 | NUR ---
Orders received for admission by Dr. Vick, orders entered by RN.
--- NOTE | 2018-04-22 14:45 | NUR ---
Pt brought by self, A&Ox4, pt preents to ER with SOB and possible pleural effusion, skin pink and warm,pt is dyalisis, foot amputation noted on L foot, pt denies chest pain, cap refill <3.
--- NOTE | 2018-04-22 14:48 | NUR ---
Patient will be admitted to care of Dr. Vick. Admitted to Tele unit. Will go to room 100A. Belongings list completed. Summary report printed. Report will be given at bedside.
[2018-04-22] MEDS ORDERED: ACET325T53 PO (14:58)
[2018-04-22] MEDS ORDERED: ASCO500T20 PO (14:58)
[2018-04-22] MEDS ORDERED: SEVE800T8 PO (14:58)
[2018-04-22] MEDS ORDERED: SSREG SUBCUT (14:58)
--- NOTE | 2018-04-22 15:04 | NUR ---
ADMIT NOTE Received pt from ER to the floor with a diagnosis of Pleural effusion. Admission process initiated. patient oriented to pain management, safety and call light-teach back done.
[2018-04-22 15:34] VITALS: BP_SYST 145
--- NOTE | 2018-04-22 15:34 | NUR ---
opening note patient is resting in bed, A&Ox4, assessment completed, educated iron melter light system and plan of care, patient verbalized understanding and tolerated well, no other needs at this time, bed in the lowest position, bed alarm on, call light within reach, three side rails up, Nasal cannula at 4L, IV line clean and intact.
--- NOTE | 2018-04-22 15:49 | NUR ---
CONSULTATION PAGED/CALLED Reason for Consultation: PNEUMONIA Person Who was Notified: MATEUSZ Consulting Physician: EDER Data Report Analyst Specialty: PULMONARY Ordering Physician: RAFAEL
--- NOTE | 2018-04-22 15:53 | NUR ---
CONSULTATION PAGED/CALLED Reason for Consultation: PNEUMONIA Person Who was Notified: BANDAR Consulting Physician: GIANLUCA Herb Counselor Specialty: INFECTIOUS DISEASE Ordering Physician: RAFAEL
--- NOTE | 2018-04-22 15:55 | NUR ---
CONSULTATION PAGED/CALLED Reason for Consultation: ESRF Person Who was Notified: MATEUSZ Consulting Physician: DR. DORIS CRUZ FOREPART ROUNDER FOR ANTHONY. Sales Analytics Manager Specialty: NEPHROLOGY Ordering Physician: RAFAEL
[2018-04-22] MEDS: IPRATROPIUM/ALBUTEROL SULFATE 3 ML AMPUL.NEB (DUONEB) INH PRN ×2 (16:12→16:57)
--- NOTE | 2018-04-22 16:25 | NUR ---
rounds patient is resting in bed, patient complaining of SOB and asked for breathing treatment, RT was called, no other needs at this time, bed in the lowest position, bed alarm on, call light within reach, three side rails up, Nasal cannula at 4L, IV line clean and intact.
--- NOTE | 2018-04-22 16:30 | NUR ---
RT in room with patient
[2018-04-22 17:05] VITALS: BP_SYST 145
[2018-04-22] MEDS: SEVELAMER HCL 800 MG TABLET PO SCH (17:11)
--- NOTE | 2018-04-22 17:11 | NUR ---
CHARISSA AND ABRAM patient is resting in bed, daughter at the bedside, educated on medication use and side effect, patient verbalized understanding and tolerated well, accuchek done and sliding scale insulin was needed at this time, no other needs at this time, bed in the lowest position, bed alarm on, call light within reach, three side rails up, Nasal cannula at 4L, IV line clean and intact.
[2018-04-22] MEDS: INSULIN REGULAR, HUMAN 100 UNITS/ML, 10 ML VIAL (humuLIN R) SUBCUT PRN ×2 (17:13→20:29)
[2018-04-22] MEDS: PIPERACILLIN/TAZO 2.25G/DEX-IS 50 ML IV SCH ×2 (17:59→23:35)
--- NOTE | 2018-04-22 18:00 | NUR ---
alonso patient is resting in bed, daughter at the bedside, educated on medication use and side effect, patient verbalized understanding and tolerated well, assisted patient to attempting to use urinal but no urine output, no other needs at this time, bed in the lowest position, bed alarm on, call light within reach, three side rails up, Nasal cannula at 4L, IV line clean and intact.
[2018-04-22] MEDS: IPRATROPIUM/ALBUTEROL SULFATE 3 ML AMPUL.NEB (DUONEB) INH SCH (19:09)
--- NOTE | 2018-04-22 19:15 | NUR ---
closing note patient is resting in bed, RT is present for breathing treatment, report given to noc shift nurse at bedside, no other needs at this time, bed in the lowest position, bed alarm on, call light within reach, three side rails up, IV line clean and intact.
[2018-04-22 19:45] VITALS: BP_SYST 153
--- NOTE | 2018-04-22 19:45 | NUR ---
INITIAL NOTE AT INITIAL ASSESSMENT, PATIENT IS RESTING IN BED, STABLE, NO SIGNS OF RESPIRATORY DISTRESS. HE IS RECEIVING A BREATHING TREATMENT WITH RT AT BEDSIDE. PATIENT VERBALIZES NO PAIN. PLAN OF CARE FOR THE EVENING IS COMMUNICATED WITH THE PATIENT. CALL LIGHT- TEACH BACK IS SUCCESSFUL. BED IS LOCKED, ALARMED, AND AT THE LOWEST LEVEL. FALL, SAFETY, AND RESPIRATORY PRECAUTIONS WILL BE IN PLACE THROUGHOUT THE SHIFT.
--- NOTE | 2018-04-22 19:58 | NUR ---
SOB NOTED AT THIS TIME, PATIENT YELLED, UPON ASSESSMENT, PATIENT IS ANXIOUS. RT GIGI AND ADMIT NURSE NICOLAS ARE AT BEDSIDE. RT HAS TITRATED PATIENT TO STABLE OXYGEN SATURATION AT THIS TIME WITH 6L OXYMIZER. HE STABILIZES RIGHT AWAY, WILL CONTINUE TO MONITOR FOR RESPIRATORY DISTRESS AND ANXIETY CLOSELY.
--- NOTE | 2018-04-22 20:05 | NUR ---
BRADLEY HALL FOR PATIENT FIDE IBARRA IN ROOM 100A REGARDING ORDERS. [phone]
[2018-04-22] MEDS: DIPHENHYDRAMINE HCL 50 MG CAPSULE PO PRN (20:24)
[2018-04-22] MEDS: CARVEDILOL 12.5 MG TABLET (COREG) PO SCH (20:25)
[2018-04-22] MEDS ORDERED: NON-FORMULARY MEDICATION (Melatonin 1 TAB) PO SCH (21:00)
--- NOTE | 2018-04-22 21:57 | NUR ---
NOTE PATIENT IS RESTING IN BED, STABLE, NO SIGNS OF RESPIRATORY DISTRESS. CALL LIGHT IS WITHIN REACH. BED IS LOCKED, ALARMED, AND AT THE LOWEST LEVEL.
--- NOTE | 2018-04-22 23:55 | NUR ---
NOTE PATIENT IS RESTING IN BED, STABLE, NO SIGNS OF RESPIRATORY DISTRESS. HE HAS BEEN REPOSITIONED NUMEROUS TIMES PER HIS REQUEST. CALL LIGHT IS WITHIN REACH. BED IS LOCKED, ALARMED, AND AT THE LOWEST LEVEL.
[2018-04-23] MEDS: IPRATROPIUM/ALBUTEROL SULFATE 3 ML AMPUL.NEB (DUONEB) INH SCH ×4 (00:46→19:45)
[2018-04-23 00:48] VITALS: BP_SYST 171
--- NOTE | 2018-04-23 01:52 | NUR ---
NOTE PATIENT IS SLEEPING, STABLE, NO SIGNS OF RESPIRATORY DISTRESS. CALL LIGHT IS WITHIN REACH. BED IS LOCKED, ALARMED, AND AT THE LOWEST LEVEL.
--- NOTE | 2018-04-23 03:50 | NUR ---
NOTE PATIENT'S REQUEST TO SIT UP ON SIDE OF BED IS GRANTED AT THIS TIME, BEDSIDE TABLE PLACED IN FRONT OF PATIENT, SAFETY EDUCATION IS GIVEN, PATIENT VERBALIZES UNDERSTANDING. PATIENT IS RESTING IN BED, STABLE, NO SIGNS OF RESPIRATORY DISTRESS. CALL LIGHT IS WITHIN REACH. BED IS LOCKED, ALARMED, AND AT THE LOWEST LEVEL.
--- NOTE | 2018-04-23 05:42 | NUR ---
NOTE PATIENT IS REPOSITIONED BACK INTO BED FOR COMFORT. PATIENT IS STABLE, NO SIGNS OF RESPIRATORY DISTRESS. CALL LIGHT IS WITHIN REACH. BED IS LOCKED, ALARMED, AND AT THE LOWEST LEVEL.
[2018-04-23] MEDS: PIPERACILLIN/TAZO 2.25G/DEX-IS 50 ML IV SCH ×4 (06:29→23:15)
[2018-04-23] MEDS: INSULIN REGULAR, HUMAN 100 UNITS/ML, 10 ML VIAL (humuLIN R) SUBCUT PRN ×2 (06:32→12:10)
[2018-04-23 06:52] LABS: BASOPHILS % (AUTO) 0.7 % (0.0-2.0); EOSINOPHILS % (AUTO) 0.1 % (0.0-4.0); HEMATOCRIT 27.9 % (36-54); HEMOGLOBIN 8.8 g/dL (14.0-18.0); LYMPHOCYTES # (AUTO) 0.5 K/uL (1.0-5.5); LYMPHOCYTES % (AUTO) 8.9 % (20.5-51.5); MEAN CORPUSCULAR HEMOGLOBIN 29 pg (27-31); MEAN CORPUSCULAR HGB CONC 32 % (32-36); MEAN CORPUSCULAR VOLUME 92 fL (79.0-98.0); MONOCYTES # (AUTO) 0.1 K/uL (0.0-1.0); MONOCYTES % (AUTO) 1.1 % (1.7-9.3); NEUTROPHILS # (AUTO) 5.6 K/uL (1.8-7.7); PLATELET COUNT (AUTO) 196 K/uL (130-430); RED BLOOD CELL COUNT(AUTO) 3.02 MIL/uL (4.2-6.2); RED CELL DISTRIBUTION WIDTH 17.8 % (9.0-15.0); WHITE BLOOD COUNT (AUTO) 6.2 K/uL (4.8-10.8)
--- NOTE | 2018-04-23 06:55 | NUR ---
CLOSING NOTE BLOOD SUGAR AT THIS TIME REQUIRES INSULIN COVERAGE PER SSI ORDERED BY MD. THROUGHOUT THE NIGHT, PATIENT SLEPT VERY LITTLE, HE WAS RESTLESS AND WANTED TO BE REPOSITIONED OFTEN AND ASKED FOR BREATHING TREATMENTS OFTEN. ALL NEEDS HAVE BEEN MET, PATIENT VERBALIZES HE IS COMFORTABLE. CURRENTLY, PATIENT IS RESTING IN BED, STABLE, NO SIGNS OF RESPIRATORY DISTRESS. CALL LIGHT IS WITHIN REACH. BED IS LOCKED, ALARMED, AND AT THE LOWEST LEVEL. PATIENT HAS BEEN TURNED [id number] THROUGHOUT THE SHIFT. FALL, SAFETY, AND RESPIRATORY PRECAUTIONS HAVE BEEN IN PLACE THROUGHOUT THE SHIFT.
--- NOTE | 2018-04-23 06:59 | NUR ---
Nutrition Update Nelson Scale 15 noted. Pt admitted for Pleural effusion Diet: renal standard 2gm Na 3gm K 1gm Phosphorus, 45 gm Carbohydrate diet BMI: 22.8 kg/m2 RD to follow per nutrition care standards.
[2018-04-23 07:01] LABS: ALBUMIN 2.5 g/dL (3.4-4.8); BILIRUBIN,DIRECT 0.3 mg/dL (0.0-0.3); CALCIUM 8.7 mg/dL (8.4-11.0); CREATININE 5.18 mg/dL (0.55-1.30); POTASSIUM 4.7 mmol/L (3.5-5.1); TOTAL BILIRUBIN 0.7 mg/dL (0.0-1.0)
--- NOTE | 2018-04-23 07:35 | NUR ---
INITIAL ROUNDS Received pt AAOx4, no s/s resp distress, no c/o pain or discomfort. Plan of care for the day reviewed with pt-pt verbalized his understanding. Noted pt with right BKA and left foot with trans metatarsal amputation with a dressing to his left heel. Pt repositioned with pillow support with left foot and right stump off-loaded for skin care. Noted COLLIN with AV shunt. Pain management. pleural effusion, skin and safety discussed-teach back done. Aspiration and safety precautions in place. Call light within reach.
[2018-04-23] MEDS: IPRATROPIUM/ALBUTEROL SULFATE 3 ML AMPUL.NEB (DUONEB) INH PRN (07:55)
[2018-04-23 09:05] VITALS: BP_SYST 127
--- NOTE | 2018-04-23 10:20 | NUR ---
ROUNDS/MEDS Pt just finished with 2D ECHO. AM medications given. Pt with c/o shortness of breath-repositioned in bed, SAO2 99% on O2 6L via Oxymizer. Needs met, call light within reach.
[2018-04-23] MEDS: SEVELAMER HCL 800 MG TABLET PO SCH ×3 (10:30→18:28)
[2018-04-23] MEDS: ISOSORBIDE MONONITRATE 30 MG TAB.ER.24H PO SCH (10:34)
[2018-04-23] MEDS: ATORVASTATIN 20 MG TABLET PO SCH (10:34)
[2018-04-23] MEDS: ASCORBIC ACID 500 MG TABLET PO SCH (10:35)
[2018-04-23] MEDS: NEPHROVITE, (FOLIC ACID/VITAMIN B COMP W-C 1 TAB) PO SCH (10:35)
[2018-04-23] MEDS: TAMSULOSIN HCL 0.4 MG CAP PO SCH (10:35)
[2018-04-23] MEDS: CITALOPRAM HYDROBROMIDE 20 MG TABLET PO SCH (10:36)
[2018-04-23] MEDS: ALLOPURINOL 100 MG TABLET (ZYLOPRIM) PO SCH (10:36)
[2018-04-23] MEDS: CARVEDILOL 12.5 MG TABLET (COREG) PO SCH ×2 (10:37→20:21)
[2018-04-23] MEDS: CHOLECALCIFEROL (VITAMIN D3) 2,000 UNIT TABLET PO SCH (10:37)
--- NOTE | 2018-04-23 11:20 | NUR ---
THORACENTESIS Pt had thoracentesis done with 1 L out, pt tolerated well, sporadic cough noted. Pt now resting quietly in bed with no s/s resp distress, no c/o pain or discomfort.
[2018-04-23] MEDS: AZITHROMYCIN 500 MG in NS 250 ML IV SCH (12:10)
[2018-04-23 12:33] VITALS: BP_SYST 156
[2018-04-23 13:45] LABS: NEUTROPHILS % (AUTO) 89.2 % (40.0-70.0)
[2018-04-23] MEDS ORDERED: LEVOFLOXACIN 250 MG/D5W 50 ML IV SCH (14:00)
--- NOTE | 2018-04-23 14:34 | NUR ---
ROUNDS Pt resting quietly in bed with no s/s resp distress, no c/o pain or discomfort. Pt had BM, cleaned, fresh linens placed, pt repositioned in bed with pillow support and left heel elevated on pillow, right BKA stump off-loaded. Aspiration, skin and safety precautions remain in place, call light within reach.
[2018-04-23 15:16] LABS: BODY FLUID SOURCE/ TYPE PLEURAL; SOURCE/TYPE ,BODY FLUID THORACENTESIS
[2018-04-23 15:17] LABS: APPEARANCE,SPUN,BODY FLUID CLEAR (CLEAR); BF APPEARANCE UNSPUN CLOUDY (CLEAR); BODY FLUID COLOR ORANGE (LT YELLOW); BODY FLUID TOTAL VOLUME 1025 mL; MONOCYTES,BODY FLUID 23 %; RBC, BODY FLUID 5583 /uL; WBC, BODY FLUID 181 /uL
[2018-04-23 15:18] LABS: NEUTROPHIL, BODY FLUID 77 %
--- NOTE | 2018-04-23 16:07 | NUR ---
CONSULTATION PAGED/CALLED Reason for Consultation: ESRF Person Who was Notified: SPOKE WITH SARA FROM OFFICE Consulting Physician: Bpm Architect Specialty: NEPHRO Ordering Physician:
[2018-04-23 16:45] VITALS: BP_SYST 149
[2018-04-23 19:08] LABS: BODY FLUID GLUCOSE 198 mg/dL; BODY FLUID TOTAL PROTEIN 3.7 g/dL
--- NOTE | 2018-04-23 19:10 | NUR ---
CLOSING NOTE Pt resting quietly in bed with no s/s resp distress, no c/o pain or discomfort. Pt seen by Dr. Zavala and orders for BMP, HD for tomorrow placed. Pt repositioned in bed for comfort, skin care and ease of breathing. Needs met, call light within reach.
[2018-04-23 19:45] VITALS: BP_SYST 140
--- NOTE | 2018-04-23 19:45 | NUR ---
INITIAL NOTE AT INITIAL ASSESSMENT, PATIENT IS RESTING IN BED, STABLE, NO SIGNS OF RESPIRATORY DISTRESS. PATIENT VERBALIZES NO PAIN OR SOB. PLAN OF CARE FOR THE EVENING IS COMMUNICATED WITH THE PATIENT. CALL LIGHT- TEACH BACK IS SUCCESSFUL. BED IS LOCKED, ALARMED, AND AT THE LOWEST LEVEL. FALL, SAFETY, AND RESPIRATORY PRECAUTIONS WILL BE IN PLACE THROUGHOUT THE SHIFT. Addendum: 04/23/18 at 2200 by Aaron Pedersen RN PATIENT WILL BE TURNED AT LEAST [id number] THROUGHOUT THE SHIFT.
--- NOTE | 2018-04-23 21:43 | NUR ---
NOTE BLOOD SUGAR AT THIS TIME REQUIRES NO INSULIN COVERAGE PER SSI ORDERED BY MD. PATIENT IS RESTING IN BED, STABLE, NO SIGNS OF RESPIRATORY DISTRESS. CALL LIGHT IS WITHIN REACH. BED IS LOCKED, ALARMED, AND AT THE LOWEST LEVEL.
--- NOTE | 2018-04-23 23:28 | NUR ---
WOUND CARE PERFORMED WOUND CARE PERFORMED AT THIS TIME, PATIENT TOLERATED WELL, PATIENT VERBALIZED NO PAIN. HE IS POSITIONED FOR COMFORT. PATIENT IS STABLE, NO SIGNS OF RESPIRATORY DISTRESS. CALL LIGHT WITHIN REACH. BED IS LOCKED, ALARMED, AND AT THE LOWEST LEVEL.
[2018-04-24 00:16] VITALS: BP_SYST 134
[2018-04-24] MEDS: DIPHENHYDRAMINE HCL 50 MG CAPSULE PO PRN (00:43)
[2018-04-24] MEDS: IPRATROPIUM/ALBUTEROL SULFATE 3 ML AMPUL.NEB (DUONEB) INH SCH ×4 (01:00→19:06)
--- NOTE | 2018-04-24 01:25 | NUR ---
NOTE PATIENT IS SLEEPING, STABLE, NO SIGNS OF RESPIRATORY DISTRESS. CALL LIGHT IS WITHIN REACH. BED IS LOCKED, ALARMED, AND AT THE LOWEST LEVEL.
--- NOTE | 2018-04-24 03:21 | NUR ---
NOTE PATIENT SAT UP ON SIDE OF BED AT THIS TIME PER HIS REQUEST, BEDSIDE TABLE PLACED IN FRONT OF PATIENT, SAFETY EDUCATION IS GIVEN, PATIENT VERBALIZES UNDERSTANDING. PATIENT IS RESTING IN BED, STABLE, NO SIGNS OF RESPIRATORY DISTRESS. CALL LIGHT IS WITHIN REACH. BED IS LOCKED, ALARMED, AND AT THE LOWEST LEVEL.
--- NOTE | 2018-04-24 05:20 | NUR ---
NOTE PATIENT IS SLEEPING, STABLE, NO SIGNS OF RESPIRATORY DISTRESS. CALL LIGHT IS WITHIN REACH. BED IS LOCKED, ALARMED, AND AT THE LOWEST LEVEL.
[2018-04-24] MEDS: PIPERACILLIN/TAZO 2.25G/DEX-IS 50 ML IV SCH ×3 (06:01→17:59)
--- NOTE | 2018-04-24 06:58 | NUR ---
CLOSING NOTE BLOOD SUGAR AT THIS TIME REQUIRES NO INSULIN COVERAGE PER SSI ORDERED BY MD. PATIENT IS RESTING IN BED, STABLE, NO SIGNS OF RESPIRATORY DISTRESS. PATIENT VERBALIZED NO PAIN THROUGHOUT THE SHIFT. CALL LIGHT IS WITHIN REACH. BED IS LOCKED, ALARMED, AND AT THE LOWEST LEVEL. PATIENT HAS BEEN TURNED [id number] THROUGHOUT THE SHIFT. FALL, SAFETY, AND RESPIRATORY PRECAUTIONS HAVE BEEN IN PLACE THROUGHOUT THE SHIFT. WILL CONTINUE TO MONITOR UNTIL SHIFT REPORT IS GIVEN AT BEDSIDE TO AM NURSE.
[2018-04-24 07:26] LABS: CALCIUM 8.5 mg/dL (8.4-11.0); CREATININE 6.31 mg/dL (0.55-1.30); POTASSIUM 5.2 mmol/L (3.5-5.1)
--- NOTE | 2018-04-24 07:50 | NUR ---
INITIAL NOTE RECEIVED PATIENT FROM SEED LABORATORY TECHNICIAN. PATIENT AWAKE IN BED RECEIVING BREATHING TX FROM R.T.; KALEIGH WELL. NO ACUTE DISTRESS. NO SOB. RESP EVEN AND UNLABORED. SKIN WARM AND DRY TO TOUCH. IV INTACT AND PATENT WITH AV SHUNT TO LEFT UPPER ARM. NOTED RIGHT BKA, LEFT PARTIAL FOOT AMPUTATION AND DRESSING TO LEFT HEEL C/D/I. BED IN LOW AND LOCKED POSITION. SIDERAIL UPX2. BED ALARM ON. DISCUSSED PLAN OF CARE; DIALYSIS ORDERED FOR TODAY AND PATIENT IS AWARE. ALL NEEDS MET. CALL LIGHT IN REACH. CONT TO MONITOR
[2018-04-24 08:12] VITALS: BP_SYST 144
[2018-04-24] MEDS: ATORVASTATIN 20 MG TABLET PO SCH (08:23)
[2018-04-24] MEDS: CHOLECALCIFEROL (VITAMIN D3) 2,000 UNIT TABLET PO SCH (08:23)
[2018-04-24] MEDS: ASCORBIC ACID 500 MG TABLET PO SCH (08:23)
[2018-04-24] MEDS: SEVELAMER HCL 800 MG TABLET PO SCH ×3 (08:24→17:58)
[2018-04-24] MEDS: TAMSULOSIN HCL 0.4 MG CAP PO SCH (08:24)
[2018-04-24] MEDS: ALLOPURINOL 100 MG TABLET (ZYLOPRIM) PO SCH (08:24)
[2018-04-24] MEDS: ISOSORBIDE MONONITRATE 30 MG TAB.ER.24H PO SCH (08:24)
[2018-04-24] MEDS: CARVEDILOL 12.5 MG TABLET (COREG) PO SCH ×2 (08:24→21:24)
[2018-04-24] MEDS: CITALOPRAM HYDROBROMIDE 20 MG TABLET PO SCH (08:24)
[2018-04-24] MEDS: NEPHROVITE, (FOLIC ACID/VITAMIN B COMP W-C 1 TAB) PO SCH (08:24)
--- NOTE | 2018-04-24 08:30 | NUR ---
MEDS ALL DUE MEDS ADMINISTERED ORDERED. COREG HELD DUE TO PATIENT TO HAVE DIALYSIS; PATIENT AWARE. TEACHING DONE ON MEDICATION ASE. ALL NEEDS MET. CONT TO MONITOR
--- NOTE | 2018-04-24 10:01 | NUR ---
P.T. PHYSICAL THERAPIST WORKING WITH PATIENT IN ROOM; KALEIGH WELL. ALL NEEDS MET. CONT TO MONITOR
--- NOTE | 2018-04-24 10:05 | NUR ---
PATIENT TAKEN FOR CT CHEST W/O CONTRAST TO F/U THORACENTESIS DONE ON 04/23/18
--- NOTE | 2018-04-24 10:05 | NUR ---
Cardiac consult called: for Dr. Cuellar, regarding recent endocarditis, ordered by Dr. Bonner, spoke with Randi.
--- NOTE | 2018-04-24 11:10 | NUR ---
NOTE PATIENT RESTING IN BED; EASILY AROUSABLE. BLOOD GLUCOSE IS 118 mg/dL WITH NO INSULIN COVERAGE NEEDED. IV ATB ZOSYN ADMINISTERED, KALEIGH WELL WITH NO S/SX ASE. PATIENT C/O SOB; R.T. AT BEDSIDE TO ADMINISTER BREATHING TX; KALEIGH WELL. PATIENT ON 4L/M VIA OXIMIZER WITH SpO2@96% AT THIS TIME. ALL NEEDS MET. CONT TO MONITOR. CALL LIGHT IN REACH.
[2018-04-24] MEDS: IPRATROPIUM/ALBUTEROL SULFATE 3 ML AMPUL.NEB (DUONEB) INH PRN (11:11)
--- NOTE | 2018-04-24 11:50 | NUR ---
NOTE PATIENT REQUESTED TO SIT UP AT EDGE OF BED; KALEIGH WELL. REPOSITIONED AND SET UP PATIENT FOR LUNCH. ALL NEEDS MET. CONT TO MONITOR. CALL LIGHT IN REACH
[2018-04-24] MEDS: AZITHROMYCIN 500 MG in NS 250 ML IV SCH (12:01)
[2018-04-24 12:26] VITALS: BP_SYST 152
--- NOTE | 2018-04-24 12:30 | NUR ---
HD DIALYSIS NURSE AT BEDSIDE PREPPING PATIENT FOR DIALYSIS. VITAL SIGN STABLE. ALL NEEDS MET. CONT TO MONITOR
--- NOTE | 2018-04-24 14:13 | NUR ---
NOTE PATIENT RECEIVING DIALYSIS WITH NURSE AT BEDSIDE. KALEIGH WELL. PATIENT RESTING BUT EASILY AROUSABLE. VITAL SIGN STABLE. ALL NEEDS MET. CONT TO MONITOR. CALL LIGHT IN REACH
--- NOTE | 2018-04-24 14:21 | NUR ---
Dietitian Recommendations * Recommend continuing renal, CCHO low carb-45 gm diet per MD * Encourage increase PO intakes LP, RD Please refer to Nutrition Assessment for details.
--- NOTE | 2018-04-24 15:38 | NUR ---
HD DIALYSIS COMPLETED WITH 2.5 L REMOVED. PATIENT KALEIGH WELL. NO BLEEDING NOTED TO AV SHUNT; DRESSING AND PRESSURE APPLIED BY DIALYSIS NURSE. PATIENT SITTING UP IN BED AWAKE. ALL NEEDS MET. CONT TO MONITOR. CALL LIGHT IN REACH
[2018-04-24 16:06] VITALS: BP_SYST 155
--- NOTE | 2018-04-24 17:20 | NUR ---
SEEN AND EXAMINED BY AT BEDSIDE. HD ORDERED FOR TOMORROW. ALL NEEDS MET. CONT TO MONITOR. CALL LIGHT IN REACH
[2018-04-24] MEDS ORDERED: EPOETIN ALFA 10,000 UNITS/ML VIAL SUBCUT SCH (17:30)
--- NOTE | 2018-04-24 17:46 | NUR ---
BLOOD GLUCOSE IS 136 mg/dL WITH NO INSULIN COVERAGE NEEDED. DINNER SET UP FOR PATIENT. ALL NEEDS MET. CONT TO MONITOR.
--- NOTE | 2018-04-24 18:53 | NUR ---
CLOSING NOTE PATIENT SITTING UP IN BED. NO C/O PAIN. CONT ON O2@3L/M VIA OXIMIZER, KALEIGH WELL. NO ACUTE DISTRESS. NO SOB. RESPIRATION EVEN AND UNLABORED. NON-PRODUCTIVE COUGH NOTED; SUCTION POSITIVE PRINTER OPERATOR FOR SUCTION PER PATIENT REQUEST, NO SECRETION NOTED. SKIN WARM AND DRY TO TOUCH. IV INTACT AND PATENT. BED IN LOW AND LOCKED POSITION. SIDERAIL UPX3. BED ALARM ON. ALL NEEDS MET. CALL LIGHT IN REACH. CONT TO MONITOR. WILL ENDORSE TO ONCOMING SHIFT.
--- NOTE | 2018-04-24 19:54 | NUR ---
OPENING NOTE Received patient awake, AOx4, resting upright in bed, and on breathing treatment. Patient has AV shunt to left arm, IV 20G RAC is SL. Bed locked to lowest position, 3 side rails up, instructed on use of call light, updated board. Will monitor.
[2018-04-24 20:00] VITALS: BP_SYST 155
[2018-04-24] MEDS: INSULIN REGULAR, HUMAN 100 UNITS/ML, 10 ML VIAL (humuLIN R) SUBCUT PRN (21:37)
--- NOTE | 2018-04-24 21:45 | NUR ---
NOTE Patient is awake, self suctions secretions with yaunker. accucheck was 162 and 2 units of regular insulin given as ordered. Safety precautions in place.
[2018-04-24 23:52] VITALS: BP_SYST 155
--- NOTE | 2018-04-25 00:50 | NUR ---
NOTE Patient administered due antibiotic and tolerating. Patient requested another blanket and it was provided. No further needs. Will monitor.
[2018-04-25] MEDS: IPRATROPIUM/ALBUTEROL SULFATE 3 ML AMPUL.NEB (DUONEB) INH SCH ×4 (00:54→19:40)
[2018-04-25] MEDS: PIPERACILLIN/TAZO 2.25G/DEX-IS 50 ML IV SCH ×4 (00:58→18:12)
--- NOTE | 2018-04-25 02:10 | NUR ---
NOTE Patient awake and requested to be changed. He was assisted and positioned for comfort. No further needs. Will monitor.
[2018-04-25] MEDS: IPRATROPIUM/ALBUTEROL SULFATE 3 ML AMPUL.NEB (DUONEB) INH PRN (05:33)
--- NOTE | 2018-04-25 06:45 | NUR ---
Note health information technician at bedside doing blood draw and morning accucheck was done with result of 57; he was given orange juice. Will follow-up
--- NOTE | 2018-04-25 07:00 | NUR ---
Note Follow-up accucheck was done w/ a result of 84. Patient is awake and verbal. Morning antibiotic is infusing and patient is tolerating. No further needs at this time. Safety precautions in place and call light near. Will endorse care to morning nurse.
[2018-04-25 07:23] LABS: BASOPHILS % (AUTO) 0.2 % (0.0-2.0); EOSINOPHILS # (AUTO) 0.3 K/uL (0.0-0.4); EOSINOPHILS % (AUTO) 3.9 % (0.0-4.0); HEMATOCRIT 26.5 % (36-54); HEMOGLOBIN 8.6 g/dL (14.0-18.0); LYMPHOCYTES # (AUTO) 1.3 K/uL (1.0-5.5); LYMPHOCYTES % (AUTO) 18.2 % (20.5-51.5); MEAN CORPUSCULAR HEMOGLOBIN 29 pg (27-31); MEAN CORPUSCULAR HGB CONC 32 % (32-36); MEAN CORPUSCULAR VOLUME 91 fL (79.0-98.0); MONOCYTES # (AUTO) 0.6 K/uL (0.0-1.0); MONOCYTES % (AUTO) 8.1 % (1.7-9.3); NEUTROPHILS # (AUTO) 4.8 K/uL (1.8-7.7); NEUTROPHILS % (AUTO) 69.6 % (40.0-70.0); PLATELET COUNT (AUTO) 213 K/uL (130-430); RED BLOOD CELL COUNT(AUTO) 2.93 MIL/uL (4.2-6.2); RED CELL DISTRIBUTION WIDTH 17.5 % (9.0-15.0)
[2018-04-25 07:33] LABS: CREATININE 4.87 mg/dL (0.55-1.30); POTASSIUM 4.5 mmol/L (3.5-5.1)
--- NOTE | 2018-04-25 07:40 | NUR ---
opening note pt awake alert, no distress, on 3 liters via Oxymizer noted. reoriented to call light use, bed alarm in place with bed in the lowest position.
[2018-04-25 08:00] VITALS: BP_SYST 142
[2018-04-25] MEDS: SEVELAMER HCL 800 MG TABLET PO SCH ×3 (09:03→18:12)
[2018-04-25] MEDS: CHOLECALCIFEROL (VITAMIN D3) 2,000 UNIT TABLET PO SCH (09:03)
[2018-04-25] MEDS: CARVEDILOL 12.5 MG TABLET (COREG) PO SCH ×2 (09:04→20:55)
[2018-04-25] MEDS: ASCORBIC ACID 500 MG TABLET PO SCH (09:04)
[2018-04-25] MEDS: CITALOPRAM HYDROBROMIDE 20 MG TABLET PO SCH (09:04)
[2018-04-25] MEDS: ALLOPURINOL 100 MG TABLET (ZYLOPRIM) PO SCH (09:04)
[2018-04-25] MEDS: ATORVASTATIN 20 MG TABLET PO SCH (09:04)
[2018-04-25] MEDS: ISOSORBIDE MONONITRATE 30 MG TAB.ER.24H PO SCH (09:04)
[2018-04-25] MEDS: NEPHROVITE, (FOLIC ACID/VITAMIN B COMP W-C 1 TAB) PO SCH (09:04)
[2018-04-25] MEDS: TAMSULOSIN HCL 0.4 MG CAP PO SCH (09:04)
--- NOTE | 2018-04-25 09:07 | NUR ---
am meds morning meds given, pt tolerated well, safety maintained. no distress noted.
[2018-04-25] MEDS ORDERED: BALSAM PERU/CASTOR OIL 60 GM OINT...G. TP SCH (10:45)
[2018-04-25] MEDS ORDERED: BALSAM PERU/CASTOR OIL 60 GM OINT...G. TP ONE (10:45)
--- NOTE | 2018-04-25 10:45 | NUR ---
WOUND EVALUATION: Wound Consult received from Dr. Jo. Thank you, Dr. Jo, for the consult. Patient received in a Sharples Bed with an IsoFlex DEEPTHI mattress, awake, alert, and oriented x 4, forgetful. Patient is unable to turn in bed independently. Nelson Score is a 14. Past Medical History: Hypertension, end-stage renal failure, diabetes mellitus, left shoulder surgery, CHF, CVA with left-sided hemiplegia, right below knee amputation, left partial foot amputation, peripheral vascular disease, chronic anemia, protein malnutrition. Recent Labs: WBC 7.0, RBC 2.93, hemoglobin 8.6, hematocrit 26.5, ESR 59, chloride 97, BUN 41, creatinine 4.87, GFR 13, glucose 61, calcium 8.0, albumin 2.5. Microbiology: MRSA screen results negative. Blood culture results x 2 in progress. Pleural body fluid culture in progress. Blood culture results �2 negative. Intrinsic factors that delay wound healing: Diabetes mellitus, hypoalbuminemia, peripheral vascular disease, chronic anemia, protein malnutrition. Extrinsic factors that delay wound healing: Decreased mobility. Wound Assessment: 1. Left heel: Unstageable pressure ulcer, present on admission. Site has 80% black eschar, 10% yellow tissue, 10% pink tissue. No odor, scant yellow purulent drainage. Renetta-wound intact, surrounding tissue has dry flaky skin. Measures 3.5 cm x 4.1 cm. Recommend: Cleanse wound with normal saline. Apply moisture barrier cream to periwound. Apply Venelex ointment to open wound bed. Cover with foam dressing. Elevate, offload and float heel with one pillow lengthwise under calf at all times. 2. Left plantar foot at first metatarsal head: Chronic Diabetic/Neuropathic foot ulcer, present on admission. Site has 100% brown eschar/flaky skin. No odor, no drainage. Periwound is callused. Dry, stable. Wound measures 1.9 cm x 2.0 cm. Recommend: No dressing needed. Pain site with Betadine. Continue to monitor site for worsening condition. Contact wound care nurse if site opens, drains, or worsens. 3. Buttocks: Erythema from IAD, present on admission. Recommend: Cleanse involved area with mild soap and water. Pat dry. Apply moisture barrier cream to involved areas. Perform site care 4 times a day, and as needed for soiling. 4. Left superior knee: Chronic wound, present on admission. Wound bed has 95% dry pink tissue, 5% black scab. No odor, no drainage. Dry, stable. Periwound intact. Wound measures 1.6 cm x 1.1 cm. 5. Left mid knee: Chronic wound, present on admission. Wound bed has 50% white scab, 50% brown scab. No odor, no drainage. Dry, stable. Periwound intact. Wound measures 0.7 cm x 0.5 cm. 6. Left inferior knee: Chronic wound, present on admission. Wound bed has 90% brown scab, 5% yellow scab, 5% black scab. No odor, no drainage. Dry, stable. Periwound intact. Wound measures 1.7 cm x 2.2 cm. Recommend: No dressings needed. Continue to monitor sites for worsening condition. Contact wound care nurse if sites open, drain, or worsen. Also recommend: Encourage and assist patient as needed with repositioning side to side only every 2 hours with pillow support, and off-load pressure areas with pillows for pressure re-distribution. Offload, elevate and float left heel and right residual limb with pillows. Perform skin care and monitor skin integrity Q shift. Use moisture barrier cream on buttocks and other moisture susceptible areas QID and as needed for soiling. Low air-loss therapy was initiated. Addendum: 04/25/18 at 1124 by Girma Carmichael RN Error, please disregard note. Please see newer note at 1046.
[2018-04-25] MEDS: ACETAMINOPHEN 325 MG TABLET PO PRN (12:09)
[2018-04-25] MEDS: AZITHROMYCIN 500 MG in NS 250 ML IV SCH (12:10)
[2018-04-25 12:18] VITALS: BP_SYST 146
--- NOTE | 2018-04-25 12:55 | NUR ---
DR VAZQUEZ called for consult spoke with nurse cotter
--- NOTE | 2018-04-25 13:26 | NUR ---
DC Planning: discharge is penidng per Dr. Jo ; the pt will need thoracic surgery consult for loculated pleural effusion.
--- NOTE | 2018-04-25 15:37 | NUR ---
PT AWAKE, ALERT, WITH DIALYSIS NURSE AT THIS TIME. NO DISTRESS NOTED.
[2018-04-25 16:59] VITALS: BP_SYST 146
[2018-04-25 17:01] VITALS: BP_SYST 135
--- NOTE | 2018-04-25 18:58 | NUR ---
closing note all needs met through shift, safety maintained, will endorse care to night supervisor.
--- NOTE | 2018-04-25 19:15 | NUR ---
CHANGE OF SHIFT; pt. awake, alert and oriented. Dr. Jo came and talked to pt., daughter @ bedside. On 3liters O2 per oximizer, HOB elevated. IV lock on rt. arm, call light within reach,
[2018-04-25 20:30] VITALS: BP_SYST 145
[2018-04-25] MEDS: INSULIN REGULAR, HUMAN 100 UNITS/ML, 10 ML VIAL (humuLIN R) SUBCUT PRN (20:59)
--- NOTE | 2018-04-25 21:00 | NUR ---
NOTES: due medication given, ate turkey sandwich and soup brought by his daughter, did not eat dinner. lrft foot dressing noted, skin bruises on upper arms and scabs on left knee and arm. left sided weakness noted due to cva.
--- NOTE | 2018-04-25 22:30 | NUR ---
NOTES; pt. insisting to get up in chair, talked to him and informed safety issues, PT to follow tomorrow and agreed. repositioned, back care done, band aid on left upper back from thoracentesis site. IV site leaking and changed opsite.
--- NOTE | 2018-04-25 23:00 | NUR ---
endorsed pt. to nurse Abi for continuity of care.
--- NOTE | 2018-04-25 23:05 | NUR ---
Notes Rec'd pt from FELISHA Avalos. Pt alert, awake, no s/s distress noted. Pt on 3L O2 via Oximizer. Pt denies any pain. Left arm AV shunt. L. toes amputation dressing L. foot c/d/i. R. BKA. Call light within reach. Bed low, locked siderails x3 up, bed alarm on. To monitor.
[2018-04-25 23:35] VITALS: BP_SYST 134
[2018-04-26] MEDS: PIPERACILLIN/TAZO 2.25G/DEX-IS 50 ML IV SCH ×5 (00:47→23:24)
--- NOTE | 2018-04-26 00:50 | NUR ---
Rounds Pt asleep, easily arousable. IV abx administered as ordered R. AC 20G clear, patent. Call light within reach. Safety measures in place. To monitor.
[2018-04-26] MEDS: IPRATROPIUM/ALBUTEROL SULFATE 3 ML AMPUL.NEB (DUONEB) INH SCH ×4 (01:25→20:31)
[2018-04-26] MEDS: ACETAMINOPHEN 325 MG TABLET PO PRN (03:58)
--- NOTE | 2018-04-26 04:10 | NUR ---
Rounds Pt asleep. No s/s distress noted. Call light within reach. Bed low, locked, bed alarm on. To monitor.
--- NOTE | 2018-04-26 06:34 | NUR ---
Closing notes Pt asleep, easily arousable. Blood sugar checked 143. All needs met throughout the night. Tre lower extremities floated on pillows. Pt repositioned. Call light within reach. Safety measures in place. To endorse to AM nurse.
--- NOTE | 2018-04-26 07:20 | NUR ---
Opening Note patient resting in bed, awake and alert, confused, no complaints of pain, breathing unlabored with supplemental O2, educated patient on use of call light for assistance, verbalized understanding, call light and bedside table left within reach, bed alarm on, will continue to monitor
[2018-04-26 08:05] VITALS: BP_SYST 145
[2018-04-26] MEDS: SEVELAMER HCL 800 MG TABLET PO SCH ×3 (08:48→17:45)
[2018-04-26] MEDS: ALLOPURINOL 100 MG TABLET (ZYLOPRIM) PO SCH (08:48)
[2018-04-26] MEDS: ASCORBIC ACID 500 MG TABLET PO SCH (08:48)
[2018-04-26] MEDS: ATORVASTATIN 20 MG TABLET PO SCH (08:48)
[2018-04-26] MEDS: CHOLECALCIFEROL (VITAMIN D3) 2,000 UNIT TABLET PO SCH (08:49)
[2018-04-26] MEDS: NEPHROVITE, (FOLIC ACID/VITAMIN B COMP W-C 1 TAB) PO SCH (08:50)
[2018-04-26] MEDS: TAMSULOSIN HCL 0.4 MG CAP PO SCH (08:50)
[2018-04-26] MEDS: CARVEDILOL 12.5 MG TABLET (COREG) PO SCH ×2 (08:50→20:27)
[2018-04-26] MEDS: CITALOPRAM HYDROBROMIDE 20 MG TABLET PO SCH (08:50)
[2018-04-26] MEDS: ISOSORBIDE MONONITRATE 30 MG TAB.ER.24H PO SCH (08:50)
[2018-04-26] MEDS: BALSAM PERU/CASTOR OIL 60 GM OINT...G. TP SCH (08:51)
--- NOTE | 2018-04-26 08:56 | NUR ---
Medication Administration educated patient regarding meds, verbalized understanding, tolerated well by mouth, denies pain at this time, breathing unlabored and symmetrical on supplemental O2, educated patient regarding med, verbalized understanding, call light and bedside table left within reach, bed alarm on, will continue to monitor
--- NOTE | 2018-04-26 09:19 | NUR ---
Dr. Ramos (Surgeon)/Dr. Bonner Round at this time, Dr. Ramos evaluated patient and is talking to Dr. Bonner about plan of care at nurses' station, will continue to monitor and implement orders
--- NOTE | 2018-04-26 10:32 | NUR ---
CONSULTATION PAGED REASON FOR CONSULTATION:HISTORY OF STROKE, CLEARANCE FOR SURGERY WAS CONSULT CALLED?Y PERSON WHO WAS NOTIFIED:TIO CONSULTING PHYSICIAN:NATALIE VALLES TAG CLERK SPECIALTY:NEURO TAG CLERK PHONE NUMBER:[phone] REQUESTING PHYSICIAN:NIKOLAI LUCERO
--- NOTE | 2018-04-26 11:30 | NUR ---
Patient had BM was cleansed and repositioned in bed, tolerate well, denies pain, HOB elevated, educated patient on use of call light for assistance, verbalized understanding, call light and bedside table left within reach, will continue to monitor patient
[2018-04-26 12:18] VITALS: BP_SYST 146
--- NOTE | 2018-04-26 12:50 | NUR ---
Dr. Headley Rounds at this time, will await MD salazar
--- NOTE | 2018-04-26 13:10 | NUR ---
Carotid US at Bedside at this time
--- NOTE | 2018-04-26 14:38 | NUR ---
DC Planning: CM to call for LTAC eval after chest tube placement done by Staple Processing Machine Operator.
[2018-04-26] MEDS: AZITHROMYCIN 500 MG in NS 250 ML IV SCH (14:46)
[2018-04-26] MEDS: INSULIN REGULAR, HUMAN 100 UNITS/ML, 10 ML VIAL (humuLIN R) SUBCUT PRN ×2 (14:53→20:30)
--- NOTE | 2018-04-26 15:40 | NUR ---
Patient had BM at this time, was cleansed and repositioned, no signs of breakdown at this time, repositioned with pillow support, no other needs, educated patient on use of call light for assistance, verbalized understanding, call light and bedside table left within reach, will continue to monitor patient
[2018-04-26 16:10] VITALS: BP_SYST 137
--- NOTE | 2018-04-26 17:20 | NUR ---
Dr. Bull Rounds at this time, informed him about Dr. Ramos's plans for surgery and his request to speak with cardio for clearance for surgery, stated 2D echo has not been read by Lorrie's group. Informed Dr. Bull that initial 2D echo order was placed by Dr. Bonner and that Dr. Cuellar's group was supposed to read. verbalized understanding and stated that Dr. Andrew's group was supposed to be covering during the time it was ordered and he is to read 2D echo. 2D echo populated on computer, will page Dr. Andrew
--- NOTE | 2018-04-26 17:26 | NUR ---
PAGED PAGED SAVANAH FLORES AT [phone]KHITRI CAROLIN PIER HAND.
--- NOTE | 2018-04-26 17:35 | NUR ---
Spoke with Dr. Andrew explained Dr. Bull requesting he reads 2D echo for patient, MD verbalized understanding and said he will be here later tonight to read, will endorse
--- NOTE | 2018-04-26 18:15 | NUR ---
Dr. Ramirez Rounds at this time, informed him about Dr. Ramos's plans for surgery, MD verbalized understanding and stated patient cleared from neurological standpoint for surgery
--- NOTE | 2018-04-26 18:55 | NUR ---
Closing Note patient resting in bed, awake and alert, HOB elevated, positioned with pillow support, educated patient on use of call light for assistance, verbalized understanding, call light and bedside table left within reach, will endorse to cnc machinist 2nd shift nurse
--- NOTE | 2018-04-26 19:41 | NUR ---
OPENING NOTES Pt and endorsement received from day shift nurse. Pt is awake, alert and lying in bed. Pt on saline lock G22 on right forearm. Pt on O2 inhalation at 3L per minute with oximizer. No complains of pain or discomfort at this time. No signs of acute distress or SOB noted. Encouraged to use call light when needed. Safety precautions in place with 3 side rails up, bed alarm on and in lowest level. Call light with pt. Will continue to monitor.
[2018-04-26 20:24] VITALS: BP_SYST 163
[2018-04-26 23:00] VITALS: BP_SYST 137
--- NOTE | 2018-04-27 00:18 | NUR ---
ROUNDS Pt is awake, alert and lying in bed while watching tv. No complains of pain at this time. No signs of acute distress or SOB noted. Encouraged pt to rest and sleep. Safety precautions in place and call light with pt. Will continue to monitor.
[2018-04-27] MEDS: IPRATROPIUM/ALBUTEROL SULFATE 3 ML AMPUL.NEB (DUONEB) INH SCH ×3 (01:19→13:06)
--- NOTE | 2018-04-27 04:10 | NUR ---
CLOSING NOTES Pt is resting in bed with both eyes closed. With visible chest rise and fall with unlabored breathing noted. Wakes up at intervals and goes back to sleep. No complains of pain at this time and no signs of acute distress noted. Safety precautions in place and call light with pt. Will continue to monitor. Addendum: 04/27/18 at 0635 by Aury Núñez RN NOT "CLOSING NOTES" but RN ROUNDS.
[2018-04-27] MEDS: PIPERACILLIN/TAZO 2.25G/DEX-IS 50 ML IV SCH ×4 (05:57→23:43)
[2018-04-27] MEDS: INSULIN REGULAR, HUMAN 100 UNITS/ML, 10 ML VIAL (humuLIN R) SUBCUT PRN (06:01)
--- NOTE | 2018-04-27 06:32 | NUR ---
CLOSING NOTES Pt is awake, alert and lying in bed. No complains of pain at this time. No signs of acute distress noted. O2 inhalation maintained and at 2L/min. All needs attended throughout the shift. Safety precautions maintained and call light with pt. Will endorse to day shift nurse.
[2018-04-27 08:00] VITALS: BP_SYST 153
--- NOTE | 2018-04-27 08:00 | NUR ---
Note Pt assisted in sitting up in bed to eat his breakfast. Breathing treatment was given at this time as well. No SOB/resp distress or pain/discomfort noted at this time. IV in right forearm intact and patent at this time. No needs noted. Call light within reach.
[2018-04-27] MEDS: TAMSULOSIN HCL 0.4 MG CAP PO SCH (08:40)
[2018-04-27] MEDS: ATORVASTATIN 20 MG TABLET PO SCH (08:40)
[2018-04-27] MEDS: ASCORBIC ACID 500 MG TABLET PO SCH (08:40)
[2018-04-27] MEDS: SEVELAMER HCL 800 MG TABLET PO SCH ×3 (08:40→18:23)
[2018-04-27] MEDS: CHOLECALCIFEROL (VITAMIN D3) 2,000 UNIT TABLET PO SCH (08:41)
[2018-04-27] MEDS: ISOSORBIDE MONONITRATE 30 MG TAB.ER.24H PO SCH (08:41)
[2018-04-27] MEDS: ALLOPURINOL 100 MG TABLET (ZYLOPRIM) PO SCH (08:41)
[2018-04-27] MEDS: CITALOPRAM HYDROBROMIDE 20 MG TABLET PO SCH (08:41)
[2018-04-27] MEDS: NEPHROVITE, (FOLIC ACID/VITAMIN B COMP W-C 1 TAB) PO SCH (08:42)
[2018-04-27] MEDS: CARVEDILOL 12.5 MG TABLET (COREG) PO SCH ×2 (08:42→20:53)
[2018-04-27] MEDS: BALSAM PERU/CASTOR OIL 60 GM OINT...G. TP SCH (08:50)
[2018-04-27] MEDS: AZITHROMYCIN 500 MG in NS 250 ML IV SCH (11:18)
--- NOTE | 2018-04-27 12:00 | NUR ---
Note Pt assisted in turning q2', given resp treatments as scheduled and requested at this time. Pt has had O2 on at 2L/nc all shift for comfort and keeping O2 sats above 92%. Pt has lower extremities on pillow. No needs noted at this time. Call light within reach.
[2018-04-27 12:16] VITALS: BP_SYST 162
--- NOTE | 2018-04-27 16:00 | NUR ---
Note Pt turned q2' and comfort given all shift. Pt checked on frequently for needs and care. IVF's infusing well and no needs noted at this time. Call light within reach. IVF's infusing well and IV site benign and patent at this time.
[2018-04-27 16:14] VITALS: BP_SYST 141
--- NOTE | 2018-04-27 17:29 | NUR ---
PAGED PAGED NATALIE VALLES AT [phone] SPOKE WITH YVETTE.
--- NOTE | 2018-04-27 17:31 | NUR ---
PAGED PAGED FRITZ NAVARRO AT [phone] SPOKE WITH YVETTE.
--- NOTE | 2018-04-27 18:35 | NUR ---
Note Spoke to Dr Bull and Dr Ramirez - who both stated they would both write their note concerning surgery this evening from their office and when they come this evening to see pt. Dr Ramos was called on his cell [phone], no answer. Pt has just finished dialysis at 1815, which started at 1530 - pt now assisted sitting up to eat his dinner. IVPB antibiotic running in at this time through right forearm IV site. No SOB/resp distress or severe pain/discomfort noted at this time. Call light within reach. Addendum: 04/27/18 at 1846 by Essence Cheung RN Pt was checked on q1' and PRN all shift for needs and care. No needs noted. Call light within reach. O2 on at 2L/nc all shift.
--- NOTE | 2018-04-27 19:30 | NUR ---
OPENING NOTE PT RESTING IN BED, REPOSITIONED FOR COMFORT. NO SIGN OF DISTRESS. SAFETY PRECAUTIONS IN PLACE. WILL MONITOR.
[2018-04-27] MEDS: ACETAMINOPHEN 325 MG TABLET PO PRN (22:34)
--- NOTE | 2018-04-27 23:36 | NUR ---
PATIENT IS CALLING FOR HELP
[2018-04-28] VITALS (8 sets, daily range): BP systolic 98–163
--- NOTE | 2018-04-28 | NUR ---
REMAINS CONFUSED Patient will intermittently rest and start yelling out for help. Awake and oriented to name but cannot recall where he is at. No s/s of any other distress. Safety and fall precautions in place. Will continue to monitor.
--- NOTE | 2018-04-28 01:40 | NUR ---
patient was awake called for help his confuse and dis orientedstated he did not get any sleep but he was sleeping comfortable as soon as he woke up he screamed for help
--- NOTE | 2018-04-28 01:48 | NUR ---
PATIENT CALLED THE CALL LIGHT AGAIN
--- NOTE | 2018-04-28 02:45 | NUR ---
patient called for help again
--- NOTE | 2018-04-28 03:15 | NUR ---
PATIENT WAS SCREAMING HELPED ME HELPED ME AT THIS TIME
--- NOTE | 2018-04-28 04:33 | NUR ---
REQUESTED CHOCOLATE PUDDING Patient is awake, yelling for breakfast, offered snack and reminded patient that breakfast tray will be served after 0700AM. Requested and required assist feeding. Tolerated well. Aspiration precautions were maintained. Will continue to monitor.
--- NOTE | 2018-04-28 04:48 | NUR ---
REQUESTED JELLO Patient requested jello. Tolerated well with total assistance. Repositioned with pillows as support and offloaded BLE.
[2018-04-28] MEDS: PIPERACILLIN/TAZO 2.25G/DEX-IS 50 ML IV SCH ×4 (06:23→23:50)
--- NOTE | 2018-04-28 06:35 | NUR ---
CLOSING NOTE PT CHANGED WITH CLEAN LINEN AND GOWN. NO ACUTE DISTRESS NOTED. ALL NEEDS MET DURING SHIFT. WILL ENDORSE CARE TO DAY SHIFT.
[2018-04-28] MEDS: IPRATROPIUM/ALBUTEROL SULFATE 3 ML AMPUL.NEB (DUONEB) INH SCH ×3 (07:32→19:48)
--- NOTE | 2018-04-28 08:00 | NUR ---
Note Pt assisted in sitting up in bed to eat his breakfast. Pt has O2 on at 2L/oxymizer at this time. IV in right forearm intact and patent at this time. No SOB/resp distress or pain/discomfort noted at this time. Pt next to nurses' station for close observation. No needs noted at this time. Call light within reach.
[2018-04-28] MEDS: ATORVASTATIN 20 MG TABLET PO SCH (08:44)
[2018-04-28] MEDS: CITALOPRAM HYDROBROMIDE 20 MG TABLET PO SCH (08:44)
[2018-04-28] MEDS: ALLOPURINOL 100 MG TABLET (ZYLOPRIM) PO SCH (08:44)
[2018-04-28] MEDS: ISOSORBIDE MONONITRATE 30 MG TAB.ER.24H PO SCH (08:44)
[2018-04-28] MEDS: NEPHROVITE, (FOLIC ACID/VITAMIN B COMP W-C 1 TAB) PO SCH (08:44)
[2018-04-28] MEDS: SEVELAMER HCL 800 MG TABLET PO SCH ×3 (08:44→17:32)
[2018-04-28] MEDS: ASCORBIC ACID 500 MG TABLET PO SCH (08:45)
[2018-04-28] MEDS: TAMSULOSIN HCL 0.4 MG CAP PO SCH (08:45)
[2018-04-28] MEDS: CARVEDILOL 12.5 MG TABLET (COREG) PO SCH ×2 (08:45→20:54)
[2018-04-28] MEDS: CHOLECALCIFEROL (VITAMIN D3) 2,000 UNIT TABLET PO SCH (08:45)
[2018-04-28] MEDS: BALSAM PERU/CASTOR OIL 60 GM OINT...G. TP SCH (08:49)
--- NOTE | 2018-04-28 10:40 | NUR ---
Note Pt worked with PT this am on bed exercises and tolerated well. Pt resting in bed. Breathing treatments given as scheduled and requested. Call light within reach.
--- NOTE | 2018-04-28 14:32 | NUR ---
Case mgt: Update on case: S/W nurse Essence who s/w Dr. Ramos last evening re: plan for decordication of pleural effusion pending consults from Dr. Ramirez and Dr. Bull. Per Essence, both Dr. Ramirez and Dr. Bull indicated pt is high risk for surgery due to comorbidities. Essence said she attempted to contact Dr. Ramos but he didn't call her back before end of her shift. Essence indicates Dr. Ramos wanted to s/w pt's daughter first regarding surgery because pt is forgetful and confused at times. Per DAVID Kat's note on 04/26/18, dc plan is for LTAC eval once chest tube is placed. Will f/u for dc planning-I asked Essence to ask dtr to bring POA forms if she has them. I will check chart to see if they are present on chart also. RAYNA BAEZA
--- NOTE | 2018-04-28 14:50 | NUR ---
Note Pt asleep at this time. No needs noted. Call light within reach.
--- NOTE | 2018-04-28 15:35 | NUR ---
Note Pt's daughter Jessica called and wanted an update on her father's status. [phone]. Will call pt's daughter shortly. Pt stable and resting next to nurses' station at this time. Call light within reach.
--- NOTE | 2018-04-28 16:00 | NUR ---
Note Spoke to pt's daughter Jessica - update on pt's status given. [phone] VAZQUEZ [phone]. MD will be in to see in half an hour. Update given to Sujey CM at this time at nurses' station. Pt asleep at this time. No needs noted. Call light within reach.
--- NOTE | 2018-04-28 16:19 | NUR ---
Nutrition F/U Admitting Diagnosis Pleural effusion Reviewed Pertinent Medical/Surgical Hx Medical Record Patient Primary RN Medical History Comment: PMH: ESRD, DM, CHF, CVA w/ L-sided weakness, R BKA, L partial foot amputation, PVD, chronic anemia, protein malnutrition per MD notes 04/28/18 ID MD Note: CAP/pneumonia, pleural effusion/loculated, ?parapneumonic, ESRD, DM2, Hx of endocarditis Subjective Information Pt seen resting in bed, stated his appetite has been horrible as he doesn't care for chicken provided often. RD alerted [facility] staff to review menu w/ pt so food preferences will be met. Per RN, pt ate a bit of breakfast, and some soup and turkey sandwich for lunch. Per RN, pt may require decortication Sx. Pt is not yet meeting optimal nutritional needs. Current Diet Order/Nutrition Support Renal, CCHO low carb-45 x2 days Patient/Significant Other Unable To Verbalize Education Provided Not Indicated Pertinent Medications nephrovite, VIT D3, VIT C, piperacillin/tazobactam IV, renagel, SSI Pertinent Labs Na 137 WNL (improved), K 4.5 WNL (improved), BG 61 L, CRE 4.87 H, BUN 41 H, POC BG 126 H Height (Feet) 5 feet Height (Inches) 10.00 inches Weight (Pounds) 161 pounds (04/24/18) BEDSCALE WT: 159 lb (04/28/18) -- taken by nursing staff, and confirmed by RD at time of RD visit Weight (Calculated Kilograms) 73.928456 kilograms Patient Weight 73.028 kg Body Mass Index 23.10 kg/m2 %IBW 97 [place]/Adjusted Body Weight IBW: 166 lb, 75 kg Recent Weight Change unable to verify Weight Status Appropriate Gastrointestinal Symptoms None Last BM Apr 23, 2018 Food Allergies Iodine per EMR Usual Diet At Home unable to verify Skin Integrity Comment: Nelson scale: 15; per nursing notes, L heel w/ wound Current % PO Poor -- 38% average x9 meals Estimated Energy Expenditure (kcals/day) 7200-4348 kcal/day (25-30 kcal/kg Adj IBW for maintenance) Estimated Protein Required (g/day) 85-107 gm/day (1.2-1.5 gm/kg Adj IBW for ESRD on HD) Estimated Fluid Required (l/day) Per MD (ESRD/CHF) Problem/Etiology/Signs/Symptoms (MODIFIED) Suboptimal PO intakes related to possible lack of appetite as evidenced by fair PO intake records. *ongoing Expected Outcomes/Goals - Monitor appetite and PO intakes w/ goal of pt meeting at least 75% of estimated nutritional needs, labs trending WNL, normal GI function, and skin integrity/wt maintenance Dietitian Recommendations * Recommend renal, CCHO low carb-45 gm diet w/ Nepro BID * Encourage increase PO intakes Follow Up High Risk: F/U in 3-5 days Addendum: 04/28/18 at [address] ONS provides an additional 850 kcal/day and 38 gm protein/day
--- NOTE | 2018-04-28 16:27 | NUR ---
Dietitian Recommendations * Recommend renal, CCHO low carb-45 gm diet w/ Nepro BID * Encourage increase PO intakes LP, RD Please refer to Nutrition F/U for details.
--- NOTE | 2018-04-28 16:30 | NUR ---
Note Dr Jo and Dr RAMOS on the floor and assessment of pt done. Dr Ramos now speaking to pt's daughter Jessica at this time. Explaining the surgery to be done, complications, side effects, benefits and questions/concerns were answered at this time. Call light within reach.
--- NOTE | 2018-04-28 18:30 | NUR ---
Note Pt resting in bed. Hygiene care and bath given to pt frequently for incontinence of urine and stools. No SOB/resp distress or pain/discomfort noted at this time. Pt checked on q1' and PRN all shift for needs and care. IV in right hand intact and patent. Pt has had his O2 on at 2L/oxymizer all shift to keep O2 sats above 92%. Pt turned q2' and PRN for comfort and promotion of circulation all shift. No needs noted. Call light within reach.
--- NOTE | 2018-04-28 19:25 | NUR ---
OPENING NOTE PT RESTING IN BED WITH NO SIGNS OF ACUTE DISTRESS AT THIS TIME. NO SOB NOTED. IV IN THE RIGHT HAND IS PATENT, NO SIGNS OF INFILTRATION AT IV SITE. PT HAS OXYMIZER SET AT 2L OF OXYGEN. INSTRUCTED PT ON USE OF CALL LIGHT. SAFETY PRECAUTIONS ARE IN PLACE. WILL MONITOR.
[2018-04-28] MEDS: INSULIN REGULAR, HUMAN 100 UNITS/ML, 10 ML VIAL (humuLIN R) SUBCUT PRN (20:56)
[2018-04-28] MEDS: IPRATROPIUM/ALBUTEROL SULFATE 3 ML AMPUL.NEB (DUONEB) INH PRN (21:58)
[2018-04-29] MEDS: IPRATROPIUM/ALBUTEROL SULFATE 3 ML AMPUL.NEB (DUONEB) INH SCH ×4 (01:40→20:01)
--- NOTE | 2018-04-29 04:00 | NUR ---
SNACKS PT REQUESTING TO BE FED SNACKS. SUGAR-FREE JELLO AND PUDDING GIVEN. PT REPOSITIONED FOR COMFORT. INSTRUCTED PT TO CALL FOR HELP. NO SIGN OF DISTRESS NOTED. SAFETY PRECAUTIONS IN PLACE. WILL MONITOR.
--- NOTE | 2018-04-29 06:15 | NUR ---
CLOSING NOTE ALL NEEDS MET DURING SHIFT. WILL ENDORSE CARE TO DAY SHIFT RN
--- NOTE | 2018-04-29 07:45 | NUR ---
am rounds. Awake oriented x3. Patient is on oxymizer at2 li/min with saturation of 100%. Head of the bed is on high folwlers. Air mattress for low beto score. Bilateral SCD for DVT prohylaxis. Call light within reach. Instructed patient to keep HOB elevated for now since he complaints of SOB when head of the bed is flat, verbalized understanding.
[2018-04-29 07:47] VITALS: BP_SYST 153
[2018-04-29] MEDS: CHOLECALCIFEROL (VITAMIN D3) 2,000 UNIT TABLET PO SCH (08:36)
[2018-04-29] MEDS: ATORVASTATIN 20 MG TABLET PO SCH (08:36)
[2018-04-29] MEDS: TAMSULOSIN HCL 0.4 MG CAP PO SCH (08:36)
[2018-04-29] MEDS: ASCORBIC ACID 500 MG TABLET PO SCH (08:36)
[2018-04-29] MEDS: CITALOPRAM HYDROBROMIDE 20 MG TABLET PO SCH (08:37)
[2018-04-29] MEDS: SEVELAMER HCL 800 MG TABLET PO SCH ×3 (08:37→17:42)
[2018-04-29] MEDS: NEPHROVITE, (FOLIC ACID/VITAMIN B COMP W-C 1 TAB) PO SCH (08:37)
[2018-04-29] MEDS: CARVEDILOL 12.5 MG TABLET (COREG) PO SCH ×2 (08:37→20:57)
[2018-04-29] MEDS: ISOSORBIDE MONONITRATE 30 MG TAB.ER.24H PO SCH (08:37)
[2018-04-29] MEDS: ALLOPURINOL 100 MG TABLET (ZYLOPRIM) PO SCH (08:37)
[2018-04-29] MEDS: BALSAM PERU/CASTOR OIL 60 GM OINT...G. TP SCH (08:38)
--- NOTE | 2018-04-29 11:45 | NUR ---
INCONTINENCE: Incontinence of bowel care done. Moisture barrier cream applied after.
[2018-04-29 12:42] VITALS: BP_SYST 145
--- NOTE | 2018-04-29 15:00 | NUR ---
Rounds: Patient is asleep. No signs of distress noted.
[2018-04-29] MEDS: INSULIN REGULAR, HUMAN 100 UNITS/ML, 10 ML VIAL (humuLIN R) SUBCUT PRN (16:35)
[2018-04-29 16:36] VITALS: BP_SYST 147
--- NOTE | 2018-04-29 18:31 | NUR ---
End of Shift: Needs attended. Left message with Kamila (daughter) to follow up on family's decision regarding planned surgery for monday.
--- NOTE | 2018-04-29 19:07 | NUR ---
Family notification: Spoke with Kamila, patient's daughter. She already have spoken with DR. VAZQUEZ regarding the surgery for Monday. Will come in am to sign consent and bring a copy of DPOA.
--- NOTE | 2018-04-29 19:14 | NUR ---
OPENING NOTE RECEIVED CARE OF PT. PT RESTING IN BED, NO SIGNS OF ACUTE DISTRESS NOTED. SAFETY PRECAUTIONS IN PLACE: BED IN LOWEST POSITION, CALL LIGHT WITH PT, BED ALARM ON, SIDE RAILS UP X 3, CLOSE TO NURSING STATION. WILL MONITOR.
[2018-04-29 20:00] VITALS: BP_SYST 145
--- NOTE | 2018-04-29 20:56 | NUR ---
ACCUCHECK PT'S BLOOD SUGAR IS 138. NO INSULIN COVERAGE PER SLIDING SCALE. SAFETY PRECAUTIONS IN PLACE. WILL MONITOR.
--- NOTE | 2018-04-29 22:55 | NUR ---
SNACKS/REPOSITIONED PT REQUESTING SNACKS, GIVEN SUGAR-FREE PUDDING PER REQUEST. PT REPOSITIONED IN BED FOR COMFORT. NO SIGNS OF ACUTE DISTRESS NOTED. SAFETY PRECAUTIONS OBSERVED. WILL MONITOR.
--- NOTE | 2018-04-30 00:10 | NUR ---
REPOSITIONED PT REPOSITIONED FOR COMFORT, HEAD ELEVATED AND PILLOW SUPPORT IN PLACE. NO DISTRESS NOTED. PT INSTRUCTED ON USE OF CALL LIGHT. SAFETY PRECAUTIONS OBSERVED. WILL MONITOR.
[2018-04-30 00:34] VITALS: BP_SYST 141
--- NOTE | 2018-04-30 01:45 | NUR ---
REPOSITIONED PT REPOSITIONED AND GIVEN A WARM BLANKET, PER REQUEST. PT DENIES PAIN AT THIS TIME. NO SIGN OF ACUTE DISTRESS NOTED. PT INSTRUCTED TO USE CALL LIGHT. SAFETY PRECAUTIONS IN PLACE. WILL MONITOR.
[2018-04-30] MEDS: ACETAMINOPHEN 325 MG TABLET PO PRN (02:32)
--- NOTE | 2018-04-30 02:32 | NUR ---
PAIN/TYLENOL ADMINISTERED PT REQUESTING TYLENOL FOR HEADACHE PAIN. TYLENOL 650 MG PO ADMINISTERED. PT EDUCATED REGARDING MEDICATION AND POTENTIAL SIDE EFFECTS. WILL MONITOR.
[2018-04-30] MEDS: IPRATROPIUM/ALBUTEROL SULFATE 3 ML AMPUL.NEB (DUONEB) INH SCH ×4 (02:51→19:40)
--- NOTE | 2018-04-30 04:30 | NUR ---
RN ROUNDS PT RESTING, EYES ARE CLOSED. VISIBLE SYMMETRICAL RISE AND FALL OF CHEST. OXYMIZER IS ON PT. IV IS SALINE LOCKED. NO SIGN OF INFILTRATION AT IV SITE. SAFETY PRECAUTIONS OBSERVED. WILL MONITOR.
--- NOTE | 2018-04-30 06:10 | NUR ---
CLOSING NOTE PT RESTING IN BED, APPEARS COMFORTABLE. ACCUCHECK SHOWED BLOOD SUGAR OF 101, NO INSULIN COVERAGE NEEDED PER SLIDING SCALE. PT DENIES PAIN AT THIS TIME. IV IS SALINE LOCKED. ALL NEEDS MET DURING SHIFT. WILL ENDORSE CARE TO DAY SHIFT RN.
[2018-04-30 07:17] LABS: BASOPHILS % (AUTO) 0.3 % (0.0-2.0); EOSINOPHILS # (AUTO) 0.2 K/uL (0.0-0.4); EOSINOPHILS % (AUTO) 2.3 % (0.0-4.0); HEMATOCRIT 25.6 % (36-54); HEMOGLOBIN 8.2 g/dL (14.0-18.0); LYMPHOCYTES # (AUTO) 1.6 K/uL (1.0-5.5); LYMPHOCYTES % (AUTO) 21.8 % (20.5-51.5); MEAN CORPUSCULAR HEMOGLOBIN 29 pg (27-31); MEAN CORPUSCULAR HGB CONC 32 % (32-36); MEAN CORPUSCULAR VOLUME 91 fL (79.0-98.0); MONOCYTES # (AUTO) 0.7 K/uL (0.0-1.0); NEUTROPHILS # (AUTO) 4.9 K/uL (1.8-7.7); NEUTROPHILS % (AUTO) 66.6 % (40.0-70.0); PLATELET COUNT (AUTO) 177 K/uL (130-430); RED BLOOD CELL COUNT(AUTO) 2.82 MIL/uL (4.2-6.2); RED CELL DISTRIBUTION WIDTH 17.9 % (9.0-15.0); WHITE BLOOD COUNT (AUTO) 7.4 K/uL (4.8-10.8)
[2018-04-30 07:31] LABS: CREATININE 5.82 mg/dL (0.55-1.30); POTASSIUM 5.3 mmol/L (3.5-5.1)
[2018-04-30 07:43] LABS: ALBUMIN 2.2 g/dL (3.4-4.8); TOTAL BILIRUBIN 0.5 mg/dL (0.0-1.0)
[2018-04-30 08:00] VITALS: BP_SYST 140
--- NOTE | 2018-04-30 08:00 | NUR ---
OPENING NOTES, PT AAOX3, DENIES PAIN, NO SOB, NO RESP DISTRESS. PT ENCOURAGED TO CALL FOR ASSIST AND PAIN MEDS. CALL LIGHT IN REACH. BED IN LOW POSITION. WILL CONT TO MONITOR.
[2018-04-30] MEDS: NEPHROVITE, (FOLIC ACID/VITAMIN B COMP W-C 1 TAB) PO SCH (09:19)
[2018-04-30] MEDS: ASCORBIC ACID 500 MG TABLET PO SCH (09:21)
[2018-04-30] MEDS: CARVEDILOL 12.5 MG TABLET (COREG) PO SCH ×2 (09:21→21:56)
[2018-04-30] MEDS: ISOSORBIDE MONONITRATE 30 MG TAB.ER.24H PO SCH (09:21)
[2018-04-30] MEDS: ALLOPURINOL 100 MG TABLET (ZYLOPRIM) PO SCH (09:21)
[2018-04-30] MEDS: TAMSULOSIN HCL 0.4 MG CAP PO SCH (09:21)
[2018-04-30] MEDS: ATORVASTATIN 20 MG TABLET PO SCH (09:22)
[2018-04-30] MEDS: SEVELAMER HCL 800 MG TABLET PO SCH ×3 (09:22→17:46)
[2018-04-30] MEDS: CHOLECALCIFEROL (VITAMIN D3) 2,000 UNIT TABLET PO SCH (09:22)
[2018-04-30] MEDS: BALSAM PERU/CASTOR OIL 60 GM OINT...G. TP SCH (09:23)
[2018-04-30] MEDS: CITALOPRAM HYDROBROMIDE 20 MG TABLET PO SCH (09:23)
--- NOTE | 2018-04-30 09:25 | NUR ---
ALL AM MED OFFERED AND TAKE. PT DENIES PAIN. C/O SOB. PT HAS BEEN REPOSITIONED REQUESTED.
--- NOTE | 2018-04-30 10:05 | NUR ---
SPOKE WITH PT'S DAUGHTER, MARCEL GU, TOLD HER THAT HER SISTER IN THE [employer] WANTS TO SEE HER DAD BEFORE OR DURING SURGERY DAY ANS SHE NEEDS VERIFICATION FROM THE MD THAT SURGERY IS REALLY HAPPENING. TOLD HER TO CALL HER SISTER AND THE [employer] SISTER NEEDS TO CALL DR VAZQUEZ OFFICE. MARCEL TOLD ME SHE WILL LET HER SISTER KNOW.
--- NOTE | 2018-04-30 12:00 | NUR ---
IN AND OUT OF THE ROOM TO ASSIST PT WITH REPOSITIONING PT AND HEAD OF BED UP AND DOWN PT C/O OF "UNABLE TO BREATH"
[2018-04-30] MEDS: CEFEPIME 1 GM in D5W 50 ML IV SCH (12:20)
[2018-04-30 12:40] VITALS: BP_SYST 162
[2018-04-30] MEDS: metroNIDAZOLE 250 mg/NS 50 ML IV SCH ×2 (13:29→21:57)
[2018-04-30 16:32] VITALS: BP_SYST 137
--- NOTE | 2018-04-30 16:43 | NUR ---
PT HAVING HD THIS TIME. PT IS STABLE. HD RN AT BEDSIDE.
[2018-04-30] MEDS: INSULIN REGULAR, HUMAN 100 UNITS/ML, 10 ML VIAL (humuLIN R) SUBCUT PRN ×2 (17:28→21:59)
--- NOTE | 2018-04-30 17:47 | NUR ---
HD DONE, 3L TAKEN OUT PER HD RN.
--- NOTE | 2018-04-30 18:54 | NUR ---
CLOSING NOTES, PT HAS BEEN STABLE, WITH ON / OFF COMPLAIN OF SOB, PT TURNED AND REPOSITIONED TO FIND A BETTER POSITION FOR HIS BREATHING. PT HAD HD WITH 3 LI OUT. FAMILY AT BEDSIDE AWARE OF THE SURGERY SCHEDULED FOR MONDAY. LABS AND T/C ORDERED. WILL ENDORSE TO NIGHT RN.
--- NOTE | 2018-04-30 19:15 | NUR ---
OPENING NOTE Late entry due to patient care. Bedside report received from dayshift nurse. Patient received lying in bed, watching TV, family members present at bedside. No s/s of acute distress noted, patient denies any pain. Breathing is even and unlabored. Nasal canula with Oxymizer attached properly, on 3L of oxygen. HOB is raised. Call light with patient. Bed alarm on. Bed is locked and at lowest position. Will continue to monitor.
[2018-04-30 20:00] VITALS: BP_SYST 152
--- NOTE | 2018-04-30 21:00 | NUR ---
REFUSED PILLOWS UNDER FEET Patient requested to have pillows removed from under his feet despite being educated on its purpose, will continue to encourage throughout shift. No s/s of acute distress noted. Breathing even and unlabored. Call light with patient. Bed alarm on. Will continue to monitor.
[2018-04-30] MEDS: DIPHENHYDRAMINE HCL 50 MG CAPSULE PO PRN (22:08)
--- NOTE | 2018-04-30 23:00 | NUR ---
ROUNDS Patient in bed, awake, watching TV. HOB raised. No signs of discomfort. Oxymizer properly attached. Chest rise and fall even bilaterally. Patient denies SOB or pain. Call light with patient. Bed alarm on. Will continue to monitor.
[2018-05-01] MEDS: IPRATROPIUM/ALBUTEROL SULFATE 3 ML AMPUL.NEB (DUONEB) INH SCH ×4 (00:48→19:32)
--- NOTE | 2018-05-01 01:00 | NUR ---
ROUNDS Patient repositioned at this time. Pillows placed under lower extremities. All needs met. Call light with patient. Bed alarm on. Will continue to monitor.
[2018-05-01 01:25] VITALS: BP_SYST 151
--- NOTE | 2018-05-01 03:00 | NUR ---
ROUNDS Patient asleep at this time. No s/s of acute distress noted. Breathing even and unlabored. Call light with patient. Bed alarm on. Will continue to monitor.
--- NOTE | 2018-05-01 05:00 | NUR ---
ROUNDS Patient in bed eyes closed, appears to be asleep. No signs of discomfort noted. Chest rise and fall even bilaterally. Call light with patient. Bed alarm on. Will continue to monitor.
[2018-05-01] MEDS: metroNIDAZOLE 250 mg/NS 50 ML IV SCH ×3 (06:11→22:51)
--- NOTE | 2018-05-01 06:47 | NUR ---
CLOSING NOTE Patient in bed awake, watching TV. NO s/s of acute distress noted. Breathing even and unlabored. IV antibiotic infusing well. IV site shows no signs of infiltration or infection. HOB raised. Oxymizer attached properly, on 3L of oxygen. Feet offloaded with pillows. Skin warm and dry to touch, no signs of hypoglycemia. All needs met throughout shift. Fall and safety precautions maintained throughout shift. Will continue to monitor until patient care is endorsed to oncoming dayshift nurse.
--- NOTE | 2018-05-01 07:50 | NUR ---
INITIAL NOTE RECEIVED PATIENT FROM SNOWBLOWER MECHANIC. PATIENT IS AWAKE, ALERT AND ORIENTED. CONT ON O2 VIA OXIMIZER, KALEIGH WELL. NO ACUTE DISTRESS. NO SOB. RESP EVEN AND UNLABORED. SKIN WARM AND DRY TO TOUCH. IV INTACT AND PATENT. LEFT UPPER ARM AV SHUNT NOTED. DRESSING NOTED TO LEFT HEEL WITH LEFT FOOT PARTIAL AMPUTATION AND RIGHT BKA. BED IN LOW AND LOCKED POSITION. SIDERAIL UP X3. BED ALARM ON. ALL NEEDS MET. CALL LIGHT IN REACH. CONT TO MONITOR.
[2018-05-01 08:00] VITALS: BP_SYST 151
--- NOTE | 2018-05-01 09:30 | NUR ---
SEEN AND EXAMINED BY AT BEDSIDE. INFORMED OF 'S ORDER FOR 05/03/18 FOR BRONCHOSCOPY VIDEO THORASCOPY SX DECORTICATION; POSSIBLE THORACOTOMY; MD AWARE WITH NO NEW ORDER AT THIS TIME. CONT TO MONITOR
[2018-05-01] MEDS: CHOLECALCIFEROL (VITAMIN D3) 2,000 UNIT TABLET PO SCH (09:40)
[2018-05-01] MEDS: ATORVASTATIN 20 MG TABLET PO SCH (09:40)
[2018-05-01] MEDS: SEVELAMER HCL 800 MG TABLET PO SCH ×3 (09:40→17:16)
[2018-05-01] MEDS: TAMSULOSIN HCL 0.4 MG CAP PO SCH (09:41)
[2018-05-01] MEDS: NEPHROVITE, (FOLIC ACID/VITAMIN B COMP W-C 1 TAB) PO SCH (09:41)
[2018-05-01] MEDS: ALLOPURINOL 100 MG TABLET (ZYLOPRIM) PO SCH (09:41)
[2018-05-01] MEDS: ISOSORBIDE MONONITRATE 30 MG TAB.ER.24H PO SCH (09:41)
[2018-05-01] MEDS: CITALOPRAM HYDROBROMIDE 20 MG TABLET PO SCH (09:41)
[2018-05-01] MEDS: ASCORBIC ACID 500 MG TABLET PO SCH (09:41)
[2018-05-01] MEDS: CARVEDILOL 12.5 MG TABLET (COREG) PO SCH ×2 (09:42→22:51)
[2018-05-01] MEDS: BALSAM PERU/CASTOR OIL 60 GM OINT...G. TP SCH (09:43)
--- NOTE | 2018-05-01 09:47 | NUR ---
MEDS ALL DUE MEDS ADMINISTERED, KALEIGH WELL. ALL NEEDS MET. CONT TO MONITOR. CALL LIGHT IN REACH
[2018-05-01 12:05] VITALS: BP_SYST 142
[2018-05-01] MEDS: CEFEPIME 1 GM in D5W 50 ML IV SCH (12:27)
--- NOTE | 2018-05-01 12:30 | NUR ---
BLOOD GLUCOSE IS 137 mg/dL WITH NO INSULIN ADMINISTERED. DIABETIC TEACHING DONE. LUNCH SET UP WITH ENGINE ROOM HELPER ASSIST TO FEED. ALL NEEDS MET. CONT TO MONITOR.
--- NOTE | 2018-05-01 13:03 | NUR ---
DC Planning: pending BP control by dialysis, MONIE schedued for May 03/per dr. Bonner's note. Addendum: 05/01/18 at 1308 by Shey Tejeda RN >> LTAC EVAL ordered per shae Sam made aware.
--- NOTE | 2018-05-01 14:00 | NUR ---
WOUND CARE WOUND CARE DONE; PATIENT KALEIGH WELL. PATIENT DID NOT WANT PAIN MED. CONT TO MONITOR
[2018-05-01 14:10] VITALS: BP_SYST 142
--- NOTE | 2018-05-01 14:56 | NUR ---
Nutrition F/U Admitting Diagnosis Pleural effusion Reviewed Pertinent Medical/Surgical Hx Medical Record Patient Primary RN Medical History Comment: PMH: ESRD, DM, CHF, CVA w/ L-sided weakness, R BKA, L partial foot amputation, PVD, chronic anemia, protein malnutrition per MD notes 04/28/18 ID MD Note: CAP/pneumonia, pleural effusion/loculated, ?parapneumonic, ESRD, DM2, Hx of endocarditis 05-01-18 MD Note: Pneumonia Left pleural effusion, recent endocarditis, ESRD, anemia, HTN, and DM Subjective Information Patient seen resting in bed and alert. Stated his appetite has been okay and that eggs and toast were consumed for breakfast. RN stated that issue is patient preferences with hospital food. Pt reported no N/V. One BM today per patient. Per MD orders, plans for possible thoracotomy � NPO order placed for breakfast 05/03/18. Current Diet Order/Nutrition Support Renal, CCHO low carb-45 x3 days Patient/Significant Other Able To Verbalize Education Provided Not Indicated Pertinent Medications nephrovite, VIT D3, VIT C, renagel, SSI Pertinent Labs 04/30/18: Na 136 WNL (improved), K 5.3 H (elevated), BG 103 H (elevated), CRE 5.82 H, BUN 41 H, POC BG 73 WNL Height (Feet) 5 feet Height (Inches) 10.00 inches Weight (Pounds) 161 pounds (04/24/18) BEDSCALE WT: 158 lb (05/01/18) -- taken by nursing staff, and confirmed by RD at time of RD visit; 157 lb (05/01/18) Weight (Calculated Kilograms) 73.222775 kilograms Patient Weight 73.028 kg Body Mass Index 23.10 kg/m2 %IBW 103% NEW [place]/Adjusted Body Weight IBW: 150 lb, 68 kg; Adj IBW (R BKA and L heel w/ L foot partial amputation): 140 lb, 63 kg Recent Weight Change unable to verify Weight Status Appropriate Gastrointestinal Symptoms None Last BM May 01, 2018 Food Allergies Iodine per EMR Usual Diet At Home unable to verify Skin Integrity Comment: Nelson scale: 14 (05/01/18); per Mail Agent note 04/25/18: 1. Left heel: Unstageable pressure ulcer, present on admission. 2. Left plantar foot at first metatarsal head: Chronic Diabetic/Neuropathic foot ulcer, present on admission. 3. Buttocks: Erythema from IAD, present on admission. 4. Left superior knee: Chronic wound, present on admission. 5. Left mid knee: Chronic wound, present on admission. Wound bed has 50% white scab, 50% brown scab. No odor, no drainage. Dry, stable. Periwound intact. Wound measures 0.7 cm x 0.5 cm.6. Left inferior knee: Chronic wound, present on admission. Current % PO Poor -- 57% average x6 meals NEW Estimated Energy Expenditure (kcals/day) 6564-1640 kcal/day (30-35 kcal/kg Adj IBW for multiple wounds) Estimated Protein required (g/day) 76-95 gm/day (1.2-1.5 gm/kg Adj IBW for ESRD on HD and multiple wounds) Estimated Fluid Required (l/day) Per MD (ESRD/CHF) Problem/Etiology/Signs/Symptoms (MODIFIED) Suboptimal protein intakes related to metabolic demands as evidenced by fair PO intake records and multiple wounds report. *ongoing Expected Outcomes/Goals - Monitor appetite and PO intakes w/ goal of pt meeting at least 75% of estimated nutritional needs, labs trending WNL, normal GI function, and skin integrity/wt maintenance Dietitian Recommendations * Recommend renal, CCHO low carb-45 gm diet w/ Nepro BID, Prosource BID, Chepe BID (ONS provides an additional 1150 kcal/day and 73 gm protein/day) * Encourage increase PO intakes Follow Up Moderate Risk: F/U in 3-5 days Signed: 05/01/18 at 1458 by Marita JONES <Co-Signature Required> Co-Signed: 05/01/18 at [address]
--- NOTE | 2018-05-01 15:10 | NUR ---
Dietitian Recommendations * Recommend renal, CCHO low carb-45 gm diet w/ Nepro BID, Prosource BID, Chepe BID (ONS provides an additional 1150 kcal/day and 73 gm protein/day) * Encourage increase PO intakes LP, RD Please refer to Nutrition F/U for details.
[2018-05-01 16:33] VITALS: BP_SYST 138
--- NOTE | 2018-05-01 16:50 | NUR ---
NOTE PATIENT WATCHING TV.CONT ON OXIMIZER O2@3L/M. NO ACUTE DISTRESS. NO SOB. ALL NEEDS MET. CONT TO MONITOR
--- NOTE | 2018-05-01 17:52 | NUR ---
BLOOD GLUCOSE IS 115 mg/dL WITH NO INSULIN ADMINISTERED. PATIENT SITTING UP EATING DINNER WITH ASSIST. ALL NEEDS MET. CALL LIGHT IN REACH. CONT TO MONITOR.
--- NOTE | 2018-05-01 18:23 | NUR ---
SEEN AND EXAMINED BY AT BEDSIDE. AWARE OF DIALYSIS TOMORROW AND PROCEDURE WITH ON 05/03/18
--- NOTE | 2018-05-01 18:33 | NUR ---
CLOSING NOTE PATIENT AWAKE IN BED EATING DINNER; KALEIGH WELL. CONT ON O2@3L/M VIA OXIMIZER, KALEIGH WELL. NO ACUTE DISTRESS. RESP EVEN AND UNLABORED. SKIN WARM AND DRY TO TOUCH. IV INTACT AND PATENT. AV SHUNT TO LEFT UPPER ARM. KEPT CLEAN AND DRY. BED IN LOW AND LOCKED POSITION. SIDERAIL UPX3. BED ALARM ON. DISCUSSED PLAN OF CARE WITH AT BEDSIDE. PATIENT AWARE SPUTUM SAMPLE STILL NEEDS TO BE COLLECTED. ALL NEEDS MET. CALL LIGHT IN REACH. CONT TO MONITOR. WILL ENDORSE TO ONCOMING SHIFT
[2018-05-01 20:45] VITALS: BP_SYST 139
[2018-05-01] MEDS: DIPHENHYDRAMINE HCL 50 MG CAPSULE PO PRN (22:52)
[2018-05-01] MEDS: INSULIN REGULAR, HUMAN 100 UNITS/ML, 10 ML VIAL (humuLIN R) SUBCUT PRN (23:00)
--- NOTE | 2018-05-01 23:35 | NUR ---
BENADRYL 50 MG PO GIVEN FOR C/O ITCHING per patient Request continue to monitor .
--- NOTE | 2018-05-02 00:02 | NUR ---
Patient frequent yelling out COMFORT MEASURES implemented off loading with pillows call de luna with patient .
--- NOTE | 2018-05-02 00:10 | NUR ---
HEMODIALYSIS FOR THIS AM PER DR DORIS CLARK ORDERS .
[2018-05-02] MEDS: ACETAMINOPHEN 325 MG TABLET PO PRN ×2 (00:21→08:43)
--- NOTE | 2018-05-02 00:46 | NUR ---
TYLENOL 650 MG PO GIVEN FOR GENERAL PAIN 05/13 AND HELPFUL .
[2018-05-02 01:14] VITALS: BP_SYST 150
[2018-05-02] MEDS: IPRATROPIUM/ALBUTEROL SULFATE 3 ML AMPUL.NEB (DUONEB) INH SCH ×4 (01:24→19:26)
[2018-05-02] MEDS ORDERED: TEMAZEPAM 15 MG CAPSULE PO PRN (01:30)
[2018-05-02] MEDS ORDERED: TEMAZEPAM 15 MG CAPSULE ONE (01:42)
--- NOTE | 2018-05-02 02:42 | NUR ---
PHONED PAGED DR ROXANN CLARK D/T PATIENT YELLING OUT INSOMNIA .
--- NOTE | 2018-05-02 02:43 | NUR ---
RESTORIL 15 MG PO administer as ordered for sleep aide per .
--- NOTE | 2018-05-02 02:43 | NUR ---
NEW ORDERS DR ROXANN CLARK .
--- NOTE | 2018-05-02 04:33 | NUR ---
HOURLY ROUNDING PATIENT AWAKE YELLING OUT , FREQUENT REDIRECT safety measures implemented OXIMIZER 3 LPM .
[2018-05-02] MEDS: metroNIDAZOLE 250 mg/NS 50 ML IV SCH ×3 (06:56→21:35)
--- NOTE | 2018-05-02 07:51 | NUR ---
INITIAL NOTE RECEIVED PATIENT FROM OFFICE SERVICES MANAGER. PATIENT AWAKE IN BED, ALERT AND ORIENTED. CONT ON O2@3L/M VIA OXIMIZER, KALEIGH WELL. NO ACUTE DISTRESS. NO SOB. RESPIRATION EVEN AND UNLABORED. SKIN WARM AND DRY TO TOUCH. IV INTACT AND PATENT. AV SHUNT TO LEFT UPPER ARM. BED IN LOW AND LOCKED POSITION. SIDERAIL UPX3. BED ALARM ON. NOTED RIGHT BKA AND LEFT FOOT PARTIAL AMPUTATION. DISCUSSED PLAN OF CARE; DIALYSIS TODAY. CALL LIGHT IN REACH. CONT TO MONITOR
[2018-05-02] MEDS: TAMSULOSIN HCL 0.4 MG CAP PO SCH (08:34)
[2018-05-02] MEDS: CHOLECALCIFEROL (VITAMIN D3) 2,000 UNIT TABLET PO SCH (08:34)
[2018-05-02] MEDS: SEVELAMER HCL 800 MG TABLET PO SCH ×3 (08:34→17:17)
[2018-05-02] MEDS: ISOSORBIDE MONONITRATE 30 MG TAB.ER.24H PO SCH (08:35)
[2018-05-02] MEDS: ATORVASTATIN 20 MG TABLET PO SCH (08:35)
[2018-05-02] MEDS: ALLOPURINOL 100 MG TABLET (ZYLOPRIM) PO SCH (08:35)
[2018-05-02] MEDS: CITALOPRAM HYDROBROMIDE 20 MG TABLET PO SCH (08:35)
[2018-05-02] MEDS: NEPHROVITE, (FOLIC ACID/VITAMIN B COMP W-C 1 TAB) PO SCH (08:36)
[2018-05-02] MEDS: ASCORBIC ACID 500 MG TABLET PO SCH (08:36)
[2018-05-02] MEDS: BALSAM PERU/CASTOR OIL 60 GM OINT...G. TP SCH (08:36)
[2018-05-02] MEDS: CARVEDILOL 12.5 MG TABLET (COREG) PO SCH ×2 (08:36→21:28)
--- NOTE | 2018-05-02 08:45 | NUR ---
MEDS ALL DUE MEDS ADMINISTERED, KALEIGH WELL. HELD COREG DUE TO PATIENT WILL HAVE DIALYSIS. ALL NEEDS MET. CONT TO MONITOR
[2018-05-02 11:28] VITALS: BP_SYST 162
[2018-05-02] MEDS: CEFEPIME 1 GM in D5W 50 ML IV SCH (11:34)
--- NOTE | 2018-05-02 11:35 | NUR ---
HD DIALYSIS NURSE SETTING UP FOR DIALYSIS. VITAL SIGN STABLE. NO ACUTE DISTRESS. CONT TO MONITOR
--- NOTE | 2018-05-02 11:44 | NUR ---
BLOOD GLUCOSE 170 mg/dL WITH INSULIN HELD DUE TO PATIENT NOT EATING LUNCH AND HAVING DIALYSIS
--- NOTE | 2018-05-02 14:35 | NUR ---
HD DIALYSIS COMPLETED WITH 2600 ml OUT. PATIENT KALEIGH WELL. VITAL SIGN STABLE. PATIENT SITTING UP IN BED. NO ACUTE DISTRESS. ALL NEEDS MET. CONT TO MONITOR
--- NOTE | 2018-05-02 15:00 | NUR ---
WOUND CARE WOUND CARE PROVIDED ORDERED, KALEIGH WELL. ALL NEEDS MET. CONT TO MONITOR
--- NOTE | 2018-05-02 15:06 | NUR ---
PT NOTE Patient having dialysis; will try again tomorrow.
[2018-05-02 15:20] VITALS: BP_SYST 134
--- NOTE | 2018-05-02 16:20 | NUR ---
NOTE PATIENT RESTING IN BED; EASILY AROUSABLE. NO ACUTE DISTRESS. NO SOB. ALL NEEDS MET. DAUGHTER SITTING AT BEDSIDE. CONT TO MONITOR
[2018-05-02 17:06] LABS: BASOPHILS % (AUTO) 0.3 % (0.0-2.0); EOSINOPHILS # (AUTO) 0.2 K/uL (0.0-0.4); EOSINOPHILS % (AUTO) 2.7 % (0.0-4.0); HEMATOCRIT 26.3 % (36-54); HEMOGLOBIN 8.4 g/dL (14.0-18.0); LYMPHOCYTES # (AUTO) 1.1 K/uL (1.0-5.5); LYMPHOCYTES % (AUTO) 15.6 % (20.5-51.5); MEAN CORPUSCULAR HEMOGLOBIN 29 pg (27-31); MEAN CORPUSCULAR HGB CONC 32 % (32-36); MEAN CORPUSCULAR VOLUME 92 fL (79.0-98.0); MONOCYTES # (AUTO) 0.5 K/uL (0.0-1.0); MONOCYTES % (AUTO) 7.1 % (1.7-9.3); NEUTROPHILS # (AUTO) 5.3 K/uL (1.8-7.7); NEUTROPHILS % (AUTO) 74.3 % (40.0-70.0); PLATELET COUNT (AUTO) 205 K/uL (130-430); RED BLOOD CELL COUNT(AUTO) 2.86 MIL/uL (4.2-6.2); WHITE BLOOD COUNT (AUTO) 7.1 K/uL (4.8-10.8)
[2018-05-02 17:18] LABS: INR 1.2 (0.80-1.20); PROTHROMBIN TIME 12.7 SECS (9.5-12.5)
--- NOTE | 2018-05-02 17:25 | NUR ---
BLOOD GLUCOSE IS 90 mg/dL WITH NO INSULIN COVERAGE. DAUGHTER AT BEDSIDE ASSISTING PATIENT WITH DINNER. ALL NEEDS MET. CONT TO MONITOR. CALL LIGHT IN REACH. CONT TO MONITOR
[2018-05-02 17:29] LABS: ALBUMIN 2.3 g/dL (3.4-4.8); CALCIUM 8.4 mg/dL (8.4-11.0); POTASSIUM 3.1 mmol/L (3.5-5.1); TOTAL BILIRUBIN 0.5 mg/dL (0.0-1.0)
--- NOTE | 2018-05-02 18:36 | NUR ---
CLOSING NOTE PATIENT RESTING IN BED; EASILY AROUSABLE. DENIES PAIN. KALEIGH O2@3L/M VIA OXIMIZER. NO ACUTE DISTRESS. NO SOB. RESP EVEN AND UNLABORED. SKIN WARM AND DRY TO TOUCH. AV SHUNT TO LEFT ARM WITH DRESSING C/D/I. ALL NEEDS MET. BED IN LOW AND LOCKED POSITION. SIDERAIL UPX3. BED ALARM ON. ALL NEEDS MET. PATIENT AWARE TO BE NPO AFTER MIDNIGHT. DAUGHTER AT BEDSIDE. CALL LIGHT IN REACH. CONT TO MONITOR. WILL ENDORSE TO ONCOMING SHIFT
--- NOTE | 2018-05-02 19:05 | NUR ---
OPENING NOTES RECEIVED PATIENT IN BED AAO X4. FAMILY AT BEDSIDE. DENIES PAIN AT THIS TIME. PATIENT ON 3L OXYMIZER. PRODUCTIVE COUGH NOTED. EVI SUCTION HANDED TO PATIENT AND INSTRUCTED TO COUGH OUT SECRETIONS PATIENT ABLE TO DO SO. PLAN OF CARE REVIEWED WITH PATIENT AND FAMILY. CALL LIGHT WITH IN REACH. BED IN LOWEST LOCKED POSITION.
--- NOTE | 2018-05-02 19:20 | NUR ---
SOB NURSE CALLED TO ROOM BY FAMILY PATIENT HAVING SHORTNESS OF BREATH AFTER DRINKING SUPPLEMENT. HOB KEPT ELEVATED 90 DEGREES. ORAL SUCTION PROVIDED WHEN PATIENT COUGHING. 02 SAT 81%. 02 INCREASED TO 6L FOR NOW. 02 SAT WENT UP TO 98% AFTER FEW MINUTES. 02 KEPT @ 3L WITH 02 SAT SUSTAINED AT 97%. FAMILY INSTRUCTED NOT TO FEED PATIENT FOR NOW. RT CALLED TO ROOM. BREATHING TREATMENT GIVEN.
--- NOTE | 2018-05-02 19:30 | NUR ---
HS CARE PATIENT HAD BM. HS CARE DONE. LINENS CHANGED. PATIENT KEPT WARMED WITH BLANKETS.
[2018-05-02 21:20] VITALS: BP_SYST 145
--- NOTE | 2018-05-02 21:35 | NUR ---
MEDS PATIENT DUE MEDICATIONS GIVEN. ROUTING FINGER STICK SUGAR 146. NO COVERAGE NEEDED.
[2018-05-03] VITALS (13 sets, daily range): BP systolic 113–160
--- NOTE | 2018-05-03 00:45 | NUR ---
ROUNDS PATIENT RESTING IN BED. NO DISTRESS NOTED. PATIENT NPO STATUS FOR SCHEDULED SURGERY. CALL LIGHT WITH IN REACH. BED ALARM ON.
[2018-05-03] MEDS: IPRATROPIUM/ALBUTEROL SULFATE 3 ML AMPUL.NEB (DUONEB) INH SCH ×4 (01:25→20:16)
--- NOTE | 2018-05-03 04:15 | NUR ---
WOUND CARE WOUND CARE DONE TO LEFT HEEL WOUND. NEW DRESSING APPLIED.
[2018-05-03] MEDS: metroNIDAZOLE 250 mg/NS 50 ML IV SCH ×3 (05:05→21:54)
--- NOTE | 2018-05-03 06:40 | NUR ---
CLOSING NOTES PATIENT RESTING IN BED. BREATHING CALM ON 3L OXYMIZER. 02 SAT 95%. PATIENT KEPT NPO FOR PROCEDURE TODAY. AM FINGER STICK SUGAR 79. PAGED DR. HACKETT WAITING FOR MD TO CALL BACK. PATIENT NEEDS ATTENDED. CALL LIGHT WITH IN REACH. BED IN LOWEST LOCKED POSITION. BED ALARM ON.
--- NOTE | 2018-05-03 07:31 | NUR ---
OPENING NOTE: MORNING REPORT WAS TAKEN BY [employer] RESEARCH TECHNICIAN NURSE AT BEDSIDE. PATIENT AWAKE GETTING A BREATHING TREATMENT WITH NO SIGNS OF DISTRESS. EDUCATED PATIENT ON HOW TO USE CALL LIGHT. PATIENT VERBALIZED UNDERSTANDING. BED ALARM IS ON AND CALL LIGHT IS IN REACH. BED IN LOWEST POSITION WITH SIDE RAILS UP. WILL CONTINUE TO MONITOR.
[2018-05-03 07:42] LABS: BASOPHILS % (AUTO) 0.5 % (0.0-2.0); EOSINOPHILS # (AUTO) 0.2 K/uL (0.0-0.4); EOSINOPHILS % (AUTO) 2.2 % (0.0-4.0); HEMATOCRIT 26.9 % (36-54); HEMOGLOBIN 8.5 g/dL (14.0-18.0); LYMPHOCYTES # (AUTO) 1.3 K/uL (1.0-5.5); LYMPHOCYTES % (AUTO) 16.8 % (20.5-51.5); MEAN CORPUSCULAR HEMOGLOBIN 29 pg (27-31); MEAN CORPUSCULAR HGB CONC 32 % (32-36); MEAN CORPUSCULAR VOLUME 91 fL (79.0-98.0); MONOCYTES # (AUTO) 0.6 K/uL (0.0-1.0); MONOCYTES % (AUTO) 8.1 % (1.7-9.3); NEUTROPHILS # (AUTO) 5.4 K/uL (1.8-7.7); NEUTROPHILS % (AUTO) 72.4 % (40.0-70.0); PLATELET COUNT (AUTO) 182 K/uL (130-430); RED BLOOD CELL COUNT(AUTO) 2.96 MIL/uL (4.2-6.2); RED CELL DISTRIBUTION WIDTH 17.9 % (9.0-15.0); WHITE BLOOD COUNT (AUTO) 7.5 K/uL (4.8-10.8)
[2018-05-03 07:46] LABS: INR 1.2 (0.80-1.20); PROTHROMBIN TIME 12.2 SECS (9.5-12.5)
[2018-05-03 07:58] LABS: CALCIUM 8.3 mg/dL (8.4-11.0); CREATININE 4.08 mg/dL (0.55-1.30); POTASSIUM 3.7 mmol/L (3.5-5.1)
--- NOTE | 2018-05-03 07:58 | NUR ---
PAGED PAGED NIKOLAI LUCERO AT [phone] SPOKE WITH PRUDENCIO.
[2018-05-03] MEDS: SEVELAMER HCL 800 MG TABLET PO SCH ×3 (08:00→18:09)
--- NOTE | 2018-05-03 08:20 | NUR ---
DR HACKETT CALLED BACK: LET HIM KNOW PATIENT'S SUGAR THIS MORNING WAS 79 AND PATIENT IS NPO. DR ORDERED D5 1/2NS AT 50ML/HR. DR AWARE OF POTASSIUM YESTERDAY OF 3.1. DR SAID TO WAIT FOR TODAY'S RESULTS.
--- NOTE | 2018-05-03 08:48 | NUR ---
DR VAZQUEZ CALLED: UPDATED HIM ON PATIENT'S LABS FROM THIS MORNING REQUESTED. SAID PATIENT WILL GO TO ICU AFTER SURGERY WHICH IS SCHEDULED FOR 1100.
[2018-05-03] MEDS: ASCORBIC ACID 500 MG TABLET PO SCH (09:00)
[2018-05-03] MEDS: ALLOPURINOL 100 MG TABLET (ZYLOPRIM) PO SCH (09:00)
[2018-05-03] MEDS: ATORVASTATIN 20 MG TABLET PO SCH (09:00)
[2018-05-03] MEDS: CARVEDILOL 12.5 MG TABLET (COREG) PO SCH ×2 (09:00→21:18)
[2018-05-03] MEDS: CITALOPRAM HYDROBROMIDE 20 MG TABLET PO SCH (09:00)
[2018-05-03] MEDS: TAMSULOSIN HCL 0.4 MG CAP PO SCH (09:00)
[2018-05-03] MEDS: CHOLECALCIFEROL (VITAMIN D3) 2,000 UNIT TABLET PO SCH (09:00)
[2018-05-03] MEDS: NEPHROVITE, (FOLIC ACID/VITAMIN B COMP W-C 1 TAB) PO SCH (09:00)
[2018-05-03] MEDS: BALSAM PERU/CASTOR OIL 60 GM OINT...G. TP SCH (09:00)
[2018-05-03] MEDS: ISOSORBIDE MONONITRATE 30 MG TAB.ER.24H PO SCH (09:00)
[2018-05-03] MEDS: D5/0.45 NS 1,000 ML IV SCH ×2 (09:19→17:40)
--- NOTE | 2018-05-03 09:35 | NUR ---
NOTE: PATIENT SITTING IN BED WITH NO SIGNS OF DISTRESS. FAMILY AT BEDSIDE. FAMILY AWARE THAT PATIENT WILL GO TO ICU AFTER SURGERY. FLUIDS ARE INFUSING. PATIENT CLEANED UP FOR SURGERY. WILL CONTINUE TO MONITOR.
--- NOTE | 2018-05-03 10:46 | NUR ---
DR. VAZQUEZ AT BEDSIDE TALKING TO FAMILY.
--- NOTE | 2018-05-03 11:16 | NUR ---
PATIENT LEFT TO SURGERY: FAMILY FOLLOWED. ALL BELONGINGS SENT WITH PATIENT.
--- NOTE | 2018-05-03 11:42 | NUR ---
PT NOTE Hold therapy today; patient went to surgery.
[2018-05-03] MEDS: CEFEPIME 1 GM in D5W 50 ML IV SCH (11:45)
[2018-05-03] MEDS ORDERED: NALOXONE HCL 0.4 MG/ML AMP (NARCAN) IVP PRN (13:30)
[2018-05-03] MEDS ORDERED: NALBUPHINE HCL 10 MG/ML AMP IVP PRN (13:30)
[2018-05-03] MEDS ORDERED: ONDANSETRON HCL 4 MG/2 ML VIAL IVP PRN ×2 (13:30)
[2018-05-03] MEDS ORDERED: fentaNYL CITRATE/PF 100 MCG/2 ML AMP IVP PRN ×2 (13:30)
[2018-05-03] MEDS ORDERED: DIPHENHYDRAMINE INJ 50 MG/ML VIAL IVP PRN (13:30)
[2018-05-03] MEDS ORDERED: FENT2mCg/mL-ROPIVA0.2%/NS EPID 200 ML EP SCH (13:30)
--- NOTE | 2018-05-03 14:22 | NUR ---
Transferred to ICU Pt arrived to ICU bed 2. Post op recovery performed by PACU nurse at bedside. Pt connected to in room monitor system. Left side chest tube clamped, not connected to suction.
[2018-05-03 14:58] LABS: BASOPHILS % (AUTO) 0.5 % (0.0-2.0); EOSINOPHILS # (AUTO) 0.1 K/uL (0.0-0.4); EOSINOPHILS % (AUTO) 1.9 % (0.0-4.0); HEMATOCRIT 25.9 % (36-54); HEMOGLOBIN 8.1 g/dL (14.0-18.0); LYMPHOCYTES % (AUTO) 13.1 % (20.5-51.5); MEAN CORPUSCULAR HEMOGLOBIN 29 pg (27-31); MEAN CORPUSCULAR HGB CONC 31 % (32-36); MEAN CORPUSCULAR VOLUME 92 fL (79.0-98.0); MONOCYTES # (AUTO) 0.5 K/uL (0.0-1.0); MONOCYTES % (AUTO) 6.5 % (1.7-9.3); NEUTROPHILS # (AUTO) 6.1 K/uL (1.8-7.7); PLATELET COUNT (AUTO) 172 K/uL (130-430); RED BLOOD CELL COUNT(AUTO) 2.83 MIL/uL (4.2-6.2); RED CELL DISTRIBUTION WIDTH 18.5 % (9.0-15.0); WHITE BLOOD COUNT (AUTO) 7.7 K/uL (4.8-10.8)
[2018-05-03] MEDS: IPRATROPIUM/ALBUTEROL SULFATE 3 ML AMPUL.NEB (DUONEB) INH PRN (14:59)
[2018-05-03 15:07] LABS: CALCIUM 7.8 mg/dL (8.4-11.0); CREATININE 4.3 mg/dL (0.55-1.30); POTASSIUM 3.9 mmol/L (3.5-5.1)
[2018-05-03] MEDS ORDERED: VANCOMYCIN HCL 1 GM/NS PREMIX 250 ML IV ONE (16:00)
--- NOTE | 2018-05-03 17:09 | NUR ---
Report Report received from Elizabeth ex. [id number].
--- NOTE | 2018-05-03 17:10 | NUR ---
CARLENE CALLED FROM ICU TO GET REPORT.
--- NOTE | 2018-05-03 18:36 | NUR ---
Called Dr. Ramos called, left message awaiting call back.
--- NOTE | 2018-05-03 18:54 | NUR ---
CALL BACK Dr. Ramos called back, new orders received.
[2018-05-03] MEDS ORDERED: CALCIUM GLUCONATE 1 GM in NS 100 ML IV ONE (19:15)
--- NOTE | 2018-05-03 19:20 | NUR ---
Closing Notes Pt endorsed to Carli RN using SBAR.
--- NOTE | 2018-05-03 20:00 | NUR ---
RECEIVED PT ASLEEP BUT EASILY AROUSED.KNOWS NAME AND PLACE AND COOPERATIVE.HAS O2 AT 4L VIA OXYMIZER AND SATURATING 100%.HAS FENTANYL EPIDURAL INFUSION GOING AT 8 ML/HR.SITE APPEAR CLEAR, WITH DRESSING INTACT.HAS ART.LINE IN PLACE OVER RT AC, APPEAR CLEAN AND DRY.ART.LINE ZEROED AND FLUSH WITHOUT DIFFICULTY.ATTEMPTED TO OBTAIN NBP CUFF READING OVER LEFT LOWER EXTREMITY, SINCE NO OTHER PLACE TO PUT IT BUT THE DIFFERENCE FROM A-LINE TO CUFF IS ABOUT 70-80, SO CUFF WAS TAKEN OFF.HAS PERIPHERAL IV OVER RT FOREARM, GAUGE #20 WITH IVF INFUSING WELL.HAS CENTRAL LINE IN PLACE OVER LEFT FEMORAL, SINGLE-LUMEN WITH GOOD BLOOD RETURN AND ITS SALINE LOCK. HAS CHEST TUBE TO 20CM WATER SEALED DRAINAGE OVER LEFT LATERAL SIDE WITH DRESSING DRY AND INTACT.NO LEAKS NOTED.HAS SERO-SANGUINOUS DRAINAGE.TURNED AND REPOSITIONED FOR COMFORT.DENIES ANY PAIN EXCEPT WHEN TURNED AND GOES AWAY IMMEDIATELY AFTER HE 'S RELAXED.
[2018-05-03] MEDS: INSULIN REGULAR, HUMAN 100 UNITS/ML, 10 ML VIAL (humuLIN R) SUBCUT PRN (21:23)
[2018-05-04] VITALS (26 sets, daily range): BP systolic 111–146
[2018-05-04] MEDS: IPRATROPIUM/ALBUTEROL SULFATE 3 ML AMPUL.NEB (DUONEB) INH SCH ×4 (01:19→19:51)
--- NOTE | 2018-05-04 04:00 | NUR ---
WOUND CARE DONE PER ORDER WITH DRESSING CHANGE.
--- NOTE | 2018-05-04 06:00 | NUR ---
MORE ALERT THIS AM.VS REMAINS STABLE. REMAINS ON FENTANYL DRIP AND ART. LINE IN PLACE.
[2018-05-04] MEDS: metroNIDAZOLE 250 mg/NS 50 ML IV SCH ×3 (06:11→21:43)
[2018-05-04 06:25] LABS: ALBUMIN 1.9 g/dL (3.4-4.8); CREATININE 4.8 mg/dL (0.55-1.30); POTASSIUM 3.8 mmol/L (3.5-5.1); TOTAL BILIRUBIN 0.5 mg/dL (0.0-1.0)
[2018-05-04 06:33] LABS: BASOPHILS % (AUTO) 0.2 % (0.0-2.0); EOSINOPHILS # (AUTO) 0.1 K/uL (0.0-0.4); EOSINOPHILS % (AUTO) 1.1 % (0.0-4.0); HEMOGLOBIN 8.6 g/dL (14.0-18.0); LYMPHOCYTES % (AUTO) 11.5 % (20.5-51.5); MEAN CORPUSCULAR HEMOGLOBIN 29 pg (27-31); MEAN CORPUSCULAR HGB CONC 32 % (32-36); MEAN CORPUSCULAR VOLUME 90 fL (79.0-98.0); MONOCYTES # (AUTO) 0.6 K/uL (0.0-1.0); MONOCYTES % (AUTO) 6.9 % (1.7-9.3); NEUTROPHILS # (AUTO) 7.1 K/uL (1.8-7.7); NEUTROPHILS % (AUTO) 80.3 % (40.0-70.0); PLATELET COUNT (AUTO) 206 K/uL (130-430); RED BLOOD CELL COUNT(AUTO) 2.99 MIL/uL (4.2-6.2); RED CELL DISTRIBUTION WIDTH 17.8 % (9.0-15.0); WHITE BLOOD COUNT (AUTO) 8.8 K/uL (4.8-10.8)
--- NOTE | 2018-05-04 07:30 | NUR ---
AM ASSESSMENT Pt received laying in bed with eyes closed, pt is easily awaken to verbal stimuli. Pt is connected to 2 L oximixer with oxygen saturation of 96% on in room monitor. Right arm Arterial Line zeroed and flushed. Right IV #20 F.A. infusing D51/2 NS @ 10 cc/hr with no signs of infiltration. Left femoral central S.L. Epidural infusing Fentanyl @ 8 cc/hr with clear dressing dry and intact. Left chest tube in place with dressing dry / clean / intact, set to 20 cm water seal with no leaks noted. Fluid draining is serosanguineous in color. Pt denies any pain at this time. Will continue to monitor.
[2018-05-04] MEDS: ALLOPURINOL 100 MG TABLET (ZYLOPRIM) PO SCH (08:24)
[2018-05-04] MEDS: ISOSORBIDE MONONITRATE 30 MG TAB.ER.24H PO SCH (08:24)
[2018-05-04] MEDS: CARVEDILOL 12.5 MG TABLET (COREG) PO SCH ×2 (08:24→20:17)
[2018-05-04] MEDS: CHOLECALCIFEROL (VITAMIN D3) 2,000 UNIT TABLET PO SCH (08:25)
[2018-05-04] MEDS: ASCORBIC ACID 500 MG TABLET PO SCH (08:25)
[2018-05-04] MEDS: NEPHROVITE, (FOLIC ACID/VITAMIN B COMP W-C 1 TAB) PO SCH (08:25)
[2018-05-04] MEDS: SEVELAMER HCL 800 MG TABLET PO SCH ×3 (08:25→17:43)
[2018-05-04] MEDS: TAMSULOSIN HCL 0.4 MG CAP PO SCH (08:25)
[2018-05-04] MEDS: ATORVASTATIN 20 MG TABLET PO SCH (08:25)
[2018-05-04] MEDS: D5/0.45 NS 1,000 ML IV SCH (08:26)
[2018-05-04] MEDS: BALSAM PERU/CASTOR OIL 60 GM OINT...G. TP SCH (08:26)
--- NOTE | 2018-05-04 10:20 | NUR ---
Pt note unable to treat patient with physical therapy, patient transferred to ICU; will wait for new orders.
[2018-05-04] MEDS: CEFEPIME 1 GM in D5W 50 ML IV SCH (11:39)
--- NOTE | 2018-05-04 13:15 | NUR ---
Hemodialysis hemodialysis nurse is in room. Vital signs stable. Will continue to monitor
--- NOTE | 2018-05-04 14:00 | NUR ---
DC Planning: Called /LVM to dtrs: Janine # [phone] and Kamila # [phone] to discuss dcp to LTAC, to verify the location they would like the pt. to go to. Addendum: 05/04/18 at 1556 by Shey Tejeda RN >> F/u with Janine, she was unable to talk dt being in the graduation ceremony with her sister. She will call back to talk about the dcp later. daniel De La Cruz cm to f/u and update [facility] admission nurse. Per Jessica, the patient was at [place] location with dr. Cole in the past. but if wanted to change and be with dr. Jo/ at [place] or [place] location.
--- NOTE | 2018-05-04 16:30 | NUR ---
SCD Pt refused to wear left lower leg SCD
[2018-05-04] MEDS: INSULIN REGULAR, HUMAN 100 UNITS/ML, 10 ML VIAL (humuLIN R) SUBCUT PRN (16:38)
--- NOTE | 2018-05-04 17:30 | NUR ---
status Pt is confused and combative, pt is refusing the removal of arterial line and left femoral central line. Pt's son at bedside and education provided.
--- NOTE | 2018-05-04 18:06 | NUR ---
CHG Pt refused CHG, multiple attempts were made and pt continues to refuse.
--- NOTE | 2018-05-04 19:20 | NUR ---
Closing Notes Pt endorsed to Tonny BAEZA using SBAR.
--- NOTE | 2018-05-04 19:20 | NUR ---
PM ASSESSMENT Pt received laying in bed with eyes open, responding to verbal stimuli. No signs of acute distress or discomfort noted. Pt is connected to 2 L oximixer tolerating well w/ O2 sats of 97% and even and unlabored breathing. Right arm Arterial Line zeroed and flushed. Right F.A. 20g saline locked. Left femoral central line saline locked. Epidural infusing Fentanyl @ 8 cc/hr with clear dressing dry and intact. Pt has a left chest tube in place, dressing c/d/i, set to 20 cm water seal with no leaks noted. Fluid draining is serosanguineous in color. Pt doesn't verbalize any needs at this time. Bed is locked and in lowest position, call light w/in reach, will continue to monitor.
--- NOTE | 2018-05-04 22:59 | NUR ---
CHG Offered pt CHG bath at this time. Pt refused stating, "No, I don't want it". Educated the pt on the benefits of a CHG bath but pt still refused. Will continue to monitor and try again at a later time.
[2018-05-05] VITALS (18 sets, daily range): BP systolic 119–145
--- NOTE | 2018-05-05 00:30 | NUR ---
Oxygen Pt's O2 saturation in the low 80's. Changed O2 from 2L to 3L via Oximizer and reminded pt to try and breathe through nose. Pt tolerating new O2 level well w/ O2 sats @ 97% and even and unlabored breathing. Will continue to monitor.
[2018-05-05] MEDS: IPRATROPIUM/ALBUTEROL SULFATE 3 ML AMPUL.NEB (DUONEB) INH SCH ×4 (01:02→19:56)
--- NOTE | 2018-05-05 02:10 | NUR ---
RN ROUNDS Pt in bed w/ eyes closed resting comfortably. No signs of acute distress or discomfort noted. VSS. Pt still on 3L O2 via Oximizer, tolerating well w/ O2 sat's @ 97% and even and unlabored breathing. Bed is locked and in lowest position, call light w/in reach, will continue to monitor.
--- NOTE | 2018-05-05 04:00 | NUR ---
WOUND CARE Wound care was done per order w/ dressing change. Pt tolerated well. Will continue to monitor.
--- NOTE | 2018-05-05 05:03 | NUR ---
CHG Offered pt CHG bath again at this time. Pt still refuses. Will continue to monitor.
--- NOTE | 2018-05-05 05:50 | NUR ---
ARTERIAL LINE Pt's arterial line d/c'd per MD's order. Pt tolerated well and no signs of acute distress or discomfort noted. Arterial Line catheter tip intact. Gauze and tape over the site. Will continue to monitor.
[2018-05-05] MEDS: metroNIDAZOLE 250 mg/NS 50 ML IV SCH ×3 (06:06→22:17)
[2018-05-05 06:09] LABS: BASOPHILS % (AUTO) 0.1 % (0.0-2.0); EOSINOPHILS # (AUTO) 0.1 K/uL (0.0-0.4); EOSINOPHILS % (AUTO) 1.2 % (0.0-4.0); HEMATOCRIT 25.3 % (36-54); HEMOGLOBIN 8.2 g/dL (14.0-18.0); LYMPHOCYTES # (AUTO) 1.1 K/uL (1.0-5.5); LYMPHOCYTES % (AUTO) 13.1 % (20.5-51.5); MEAN CORPUSCULAR HEMOGLOBIN 29 pg (27-31); MEAN CORPUSCULAR HGB CONC 32 % (32-36); MEAN CORPUSCULAR VOLUME 91 fL (79.0-98.0); MONOCYTES # (AUTO) 0.7 K/uL (0.0-1.0); MONOCYTES % (AUTO) 8.2 % (1.7-9.3); NEUTROPHILS # (AUTO) 6.4 K/uL (1.8-7.7); NEUTROPHILS % (AUTO) 77.4 % (40.0-70.0); PLATELET COUNT (AUTO) 178 K/uL (130-430); RED BLOOD CELL COUNT(AUTO) 2.78 MIL/uL (4.2-6.2); RED CELL DISTRIBUTION WIDTH 18.5 % (9.0-15.0); WHITE BLOOD COUNT (AUTO) 8.3 K/uL (4.8-10.8)
[2018-05-05 06:38] LABS: CALCIUM 8.3 mg/dL (8.4-11.0); CREATININE 3.66 mg/dL (0.55-1.30); POTASSIUM 3.4 mmol/L (3.5-5.1)
--- NOTE | 2018-05-05 07:29 | NUR ---
ENDORSEMENT Report given to Beatris RN and Yesenia RN using SBAR format and pt care endorsed. Pt in bed w/ eyes open, no signs of acute distress or discomfort noted. VSS. Bed is locked and in lowest position, call light w/in reach.
--- NOTE | 2018-05-05 07:40 | NUR ---
Opening Note Patient received awake and alert, but can at times be confused. Patient reoriented to name, place, and time. Patient on loan broker with NSR. Patient breathing evenly and unlabored with 3L O2 via Oxymizer. No distress noted at this time. Patient has a 20 gauge right forearm peripheral IV, patent and flushing well. Patient also has a left femoral line, patent and flushing well. Patient has a left side chest tube with clean, dry dressing intact. HOB > 30 degrees, bed @ lowest position, and reinforced the use of call light.
[2018-05-05] MEDS: ALLOPURINOL 100 MG TABLET (ZYLOPRIM) PO SCH (08:21)
[2018-05-05] MEDS: SEVELAMER HCL 800 MG TABLET PO SCH ×3 (08:21→17:35)
[2018-05-05] MEDS: TAMSULOSIN HCL 0.4 MG CAP PO SCH (08:21)
[2018-05-05] MEDS: ATORVASTATIN 20 MG TABLET PO SCH (08:21)
[2018-05-05] MEDS: ASCORBIC ACID 500 MG TABLET PO SCH (08:22)
[2018-05-05] MEDS: NEPHROVITE, (FOLIC ACID/VITAMIN B COMP W-C 1 TAB) PO SCH (08:22)
[2018-05-05] MEDS: CARVEDILOL 12.5 MG TABLET (COREG) PO SCH ×2 (08:23→20:49)
[2018-05-05] MEDS: CHOLECALCIFEROL (VITAMIN D3) 2,000 UNIT TABLET PO SCH (08:24)
[2018-05-05] MEDS: ISOSORBIDE MONONITRATE 30 MG TAB.ER.24H PO SCH (08:24)
--- NOTE | 2018-05-05 08:30 | NUR ---
CHG Pt provided CHG with linen change and oral care.
--- NOTE | 2018-05-05 09:10 | NUR ---
CHG CHG bath given and linen changed. Patient tolerated well. No signs of distress noted.
--- NOTE | 2018-05-05 10:10 | NUR ---
CM DC PLANNING: LTAC WHEN STABLE UPDATE WITH [facility]/CARLENE & ICU CHG/SAW RE: COMMUNICATION WITH DR. VAZQUEZ ABOUT DURATION OF CHEST TUBE; IF MD WOULD SEE Pt AT LTAC; AND, TO INFORM THAT LT[facility] IS DC PLAN ([facility], OR [facility] PER COMMUNICATION WITH DR. HACKETT ON 05/04/18; PENDING F/UP WITH FAMILY REGARDING FACILITY ORDER OF PREFERENCE). PER NURSES, Pt MAY TRANSITION TO TELE LOC TODAY OR TOMORROW. Pt ALERT AND COMMUNICATING HIS NEEDS TO STAFF. DAVID SPOKE WITH [facility] ON-CALL LIAISON/SUZANNE ([phone]). Pt MEETS CRITERIA FOR ADMISSION; CM RECOMMENDED TO SEND UPDATED INFO TO [facility] WHEN TRANSFER BED IS REQUESTED.
--- NOTE | 2018-05-05 10:27 | NUR ---
Nutrition F/U Admitting Diagnosis Pleural effusion Reviewed Pertinent Medical/Surgical Hx Medical Record Patient Primary RN Medical History Comment: PMH: ESRD, DM, CHF, CVA w/ L-sided weakness, R BKA, L partial foot amputation, PVD, chronic anemia, protein malnutrition per MD notes 04/28/18 ID MD Note: CAP/pneumonia, pleural effusion/loculated, ?parapneumonic, ESRD, DM2, Hx of endocarditis 05-01-18 Note: Pneumonia Left pleural effusion, recent endocarditis, ESRD, anemia, HTN, and DM 05/05/18 MD Note: S/P VATS 05/03/18 Subjective Information Patient seen resting in bed, moderately altered. Pt c/o pain in ankle area during RD visit. Per RN report, Prosource was administered this morning by mixing it w/ apple sauce. Chepe however was reportedly not being administered d/t pt's refusal. RN also reported that pt w/ poor PO intake this morning, 35%. Pt refused his dinner last night per RN. RD s/w pt and encouraged intake of Chepe and to increase intake of solid food. Per EMR, I/O: 246/25 +221ml, IV total intake 100ml per 12 hrs. Chest tube drainage: 25ml per 12 hrs. PO intake 30% x 3 meals 05/04/18 x 2 refusals. Pt continues w/ poor PO intake. Nepro at bedside table, untouched. Current Diet Order/Nutrition Support Renal, CCHO low carb-45 diet w/ Nepro BID, Prosource BID and Chepe BID x 4 days Patient/Significant Other Able To Verbalize Education Provided Not Indicated Pertinent Medications nephrovite, VIT D3, VIT C, renagel, SSI, zofran Pertinent Labs 05/05/18: K 3.4 L, BG 81 WNL (improved), CRE 3.66 H, BUN 21 WNL (improved) Height (Feet) 5 feet Height (Inches) 10.00 inches Weight (Pounds) 165 pounds (05/05/18-by RN) BEDSCALE WT: 158 lb (05/01/18) -- taken by nursing staff, and confirmed by RD at time of RD visit; 157 lb (05/01/18) Weight (Calculated Kilograms) 74.871 kilograms Patient Weight 74.871 kg Body Mass Index 23.7 kg/m2 %IBW 111% [place]/Adjusted Body Weight IBW: 150 lb, 68 kg; Adj IBW (R BKA and L heel w/ L foot partial amputation): 140 lb, 63 kg Recent Weight Change unable to verify Weight Status Appropriate Gastrointestinal Symptoms None Last BM May 03, 2018 x2 Food Allergies Iodine per EMR Usual Diet At Home unable to verify Skin Integrity Comment: Nelson scale: 14 (05/05/18); per [facility] note 04/25/18: 1. Left heel: Unstageable pressure ulcer, present on admission. 2. Left plantar foot at first metatarsal head: Chronic Diabetic/Neuropathic foot ulcer, present on admission. 3. Buttocks: Erythema from IAD, present on admission. 4. Left superior knee: Chronic wound, present on admission. 5. Left mid knee: Chronic wound, present on admission. Wound bed has 50% white scab, 50% brown scab. No odor, no drainage. Dry, stable. Periwound intact. Wound measures 0.7 cm x 0.5 cm.6. Left inferior knee: Chronic wound, present on admission. Current % PO Poor -- 30% x3 meals Estimated Energy Expenditure (kcals/day) 6541-6876 kcal/day (30-35 kcal/kg Adj IBW for multiple wounds) Estimated Protein required (g/day) 76-95 gm/day (1.2-1.5 gm/kg Adj IBW for ESRD on HD and multiple wounds) Estimated Fluid Required (l/day) Per MD (ESRD/CHF) Problem/Etiology/Signs/Symptoms (MODIFIED) Suboptimal protein intakes related to metabolic demands as evidenced by fair PO intake records and multiple wounds report. *ongoing Expected Outcomes/Goals - Monitor appetite and PO intakes w/ goal of pt meeting at least 75% of estimated nutritional needs, labs trending WNL, normal GI function, and skin integrity/wt maintenance Dietitian Recommendations * Recommend renal, CCHO low carb-45 gm diet w/ Nepro BID, Prosource BID, Chepe BID (ONS provides an additional 1130 kcal/day and 73 gm protein/day) * Encourage increase PO intakes Follow Up Moderate Risk: F/U in 3-5 days
--- NOTE | 2018-05-05 10:38 | NUR ---
Dietitian Recommendations * Recommend renal, CCHO low carb-45 gm diet w/ Nepro BID, Prosource BID, Chepe BID (ONS provides an additional 1130 kcal/day and 73 gm protein/day) * Encourage increase PO intakes. Please see Nutrition F/U note for details. MONIKA, RD
[2018-05-05] MEDS: CEFEPIME 1 GM in D5W 50 ML IV SCH (11:55)
--- NOTE | 2018-05-05 12:00 | NUR ---
RN Rounds Patient is confused and is reoriented to person, place, and time. No signs of distress noted at this time. VSS. Reinforced patient with use of call light.
--- NOTE | 2018-05-05 15:15 | NUR ---
Epidural D/C Epidural removed with assistance from Ana BAEZA OB dept. Pt tolerated well with no complaints of acute injury or distress. Epidural removed with black tip intact.
[2018-05-05] MEDS: BALSAM PERU/CASTOR OIL 60 GM OINT...G. TP SCH (15:35)
--- NOTE | 2018-05-05 15:35 | NUR ---
Report Report given to Jeannie BAEZA on Tele.
--- NOTE | 2018-05-05 16:00 | NUR ---
Transfer Patient transferred to Telemetry 112 B. Patient asleep during transfer. No signs of distress noted. VSS.
--- NOTE | 2018-05-05 16:30 | NUR ---
Notes Received patient from ICU, drowsy, family at bedside. Has left chest tube, dressing dry and intact draining serosanguinous at 720cc level. subcutaneous empysema noted on the left upper chest with madelyn, per report MD aware.Dressing on the left heel with dressing dry and intact. LAV shunt with bruit present. Ivl on the right arm. Pt is anuric. no acute distress noted. at this time. 0n 02 3l. Repositioned for comfort. will continue to monitor.
--- NOTE | 2018-05-05 17:06 | NUR ---
MD ROUNDS SEEN BY DR. HALL AT BEDSIDE.
--- NOTE | 2018-05-05 18:00 | NUR ---
notes- trying to feed patient but he refused to eat. Pt keeps yelling that he needs help and wants to get up. Repositioned patient and try to re orienting patient again and again.
--- NOTE | 2018-05-05 18:42 | NUR ---
Notes- In bed, with eyes closed. pt is calm at this time. breathing even and unlabored. chest tube on 20cm sunction, no leakage noted. no distress noted. Needs attended. will endorse.
--- NOTE | 2018-05-05 19:00 | NUR ---
Notes- chest tube canister is leaking and not sunctioning. Informed charge nurse. Canister changed. drainage at 720cc level. No distress notedon patient. will endorse.
--- NOTE | 2018-05-05 20:00 | NUR ---
initial notes: patient in bed with eyes close ,easily opens when called his name. stated his name ,forgetful of place and time. reoriented with response okay.dinner tray on the table ,offered to eat but refuse. follow simple commands ,like squeezing both hands weakly and open mouth. on oxygen 3 liters per oxymizer. sat 97%.has left chest subcutaneous emphysemia with markings,left mid lat chest chest tube to 20cm water seal,with bubbling,dressing dry and intact,sinus rhythm on telemonitor. saline lock to RFA SITE CLEAR. ABDOMEN SOFT FLAT, WITH ACTIVE BOWEL SOUNDS. 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 INSTRUCTED PATIENT HOW TO USE IF WITHWILL MONITOR CLOSELY. ANY PAIN AND NEEDS.
--- NOTE | 2018-05-05 20:20 | NUR ---
PSYCHOSOCIAL: PATIENT CALLING FOE HELP SINCE START OF SHIFT. NEEDS ATTENDED.
--- NOTE | 2018-05-05 20:30 | NUR ---
HYGEINE: INCONTINENT OF LOOSE STOOL. EARLE CARE RENDERED BY ROLL PANNER AND RN. REASSURANCES PROVIDED.
--- NOTE | 2018-05-05 20:45 | NUR ---
NUTRITION: FED BY TICKET COLLECTOR OR USHER WITH PUDDING AND JELLO .TOLERATED WELL.
[2018-05-05] MEDS: HYDROcodone/ACETAMIN 5-325 MG TAB (NORCO/ VICODIN) PO PRN (20:50)
--- NOTE | 2018-05-05 20:50 | NUR ---
PAIN: MEDICATED WITH NORCO 5MG FOR LEFT CHEST TUBE SITE PAIN 09/10. CONTINUE TO YELL HELP ME. REASSURANCES PROVIDED. NEEDS ATTENDED.
--- NOTE | 2018-05-05 21:00 | NUR ---
MEDS ADMIN/ ACCU CHECK: PO MEDS GIVEN WITH APPLE JUICE WITHOUT DIFFICULTY. BLOOD SUGAR 113MG/DL.
--- NOTE | 2018-05-05 22:00 | NUR ---
QUIETE THIS TIME. EYES CLOSE. O2 OFF. PLACED BACK THEN START YELLING HELP ME.
--- NOTE | 2018-05-05 23:00 | NUR ---
CALM AND SILENT THIS TIME. O2 ON. CHEST TUBE WORKING WELL.
[2018-05-06] MEDS: DIPHENHYDRAMINE HCL 50 MG CAPSULE PO PRN ×2 (00:04→20:13)
[2018-05-06 00:16] VITALS: BP_SYST 125
[2018-05-06] MEDS: IPRATROPIUM/ALBUTEROL SULFATE 3 ML AMPUL.NEB (DUONEB) INH SCH ×4 (00:31→19:40)
--- NOTE | 2018-05-06 00:50 | NUR ---
MEDICATED WITH BENADRYL 50 MG PO FOR ITCHING.NO RASHES SEEN.
--- NOTE | 2018-05-06 01:30 | NUR ---
HYGIENE: CONTINUE ASKING FOR HELP. INCONTINENT OF LOOSE STOOL. EARLE CARE RENDERED. REASSURE PATIENT.
--- NOTE | 2018-05-06 02:00 | NUR ---
RNS AND CNAS ARE ALTERNATING ANSWERING HIS CALLS FOE HELP,TALKED TO PATIENT AND REASSURE HIM AND CONTINUE PROVIDING HIS NEEDS.
--- NOTE | 2018-05-06 02:30 | NUR ---
PRIMARY RN STARTED STAYING AND CHARTING INSIDE ROOM FOR COMPANY SINCE ALWAYS REQUESTING SOMEBODY TO TALK TO.
--- NOTE | 2018-05-06 03:00 | NUR ---
PATIENT QUITE ,STOPPED SAYING CANT SEE YOU, IM BLIND,NEED HELP STILL WITH CONFUSIONS.
--- NOTE | 2018-05-06 05:00 | NUR ---
PATIENT WOKE UP. YELLING HELP ME. THEN REMOVING O2 .GOWN AND BLANKETS. DONT KNOW WHY HE IS DOING. HYGIENE DONE.
--- NOTE | 2018-05-06 05:40 | NUR ---
HYGEINE AND SKIN CARE DONE BY 2 STAFFS.
[2018-05-06] MEDS: metroNIDAZOLE 250 mg/NS 50 ML IV SCH ×3 (05:48→21:08)
[2018-05-06 05:54] VITALS: BP_SYST 125
--- NOTE | 2018-05-06 06:30 | NUR ---
CLOSING: CXR DONE. QUIET THIS TIME EYES CLOSE. DUE MEDS GIVEN. SALINE LOCK PATENT. CHEST TUBE WORKING WELL, DRAINED 35 ML FOR THIS SHIFT.LEFT HEEL WOUND WITH SCAR. CLEANSED WITH NS PAT DRY COVERED WITH OPTIFOAM ,SECURED WITH HERMANN GAUGE. HAD EPISODES OF CONFUSIONS. HAD A DOSE OF NORCO PO FOR PAIN AND BENADRYL PO FOR ITCHING. ALL NEEDS WERE MET. REPOSITONED. NUTRITION GIVEN. WILL ENDORSE CARE FOR CONTINUITY OF CARE.
[2018-05-06 07:12] LABS: CREATININE 4.85 mg/dL (0.55-1.30); POTASSIUM 3.7 mmol/L (3.5-5.1)
--- NOTE | 2018-05-06 07:15 | NUR ---
OPENING NOTE Patient resting in the bed. Respiration even and unlabored. On O2 3L/min via oxizymer. Patient keep saying "can you help me. I heed to pull up". Pulled up patient with night nurse. However, after pulled up the patient still keep saying "help me" and still stay with patient. Skin warm and dry to touch. SL intact to RFA, no redness, no swelling, patent. AV shunt intact to COLLIN with thrill/bruit present, no bleeding. Left chest tube intact to 20cm water seal with bubbling, intact with clean and dry dressing, no bleeding. Safety measure maintained. Bed locked in low position, side rails up, bed alarm on. Call light within reached. Will continue to monitor.
[2018-05-06 07:29] LABS: BASOPHILS % (AUTO) 0.2 % (0.0-2.0); EOSINOPHILS # (AUTO) 0.2 K/uL (0.0-0.4); EOSINOPHILS % (AUTO) 2.6 % (0.0-4.0); HEMATOCRIT 25.7 % (36-54); HEMOGLOBIN 8.2 g/dL (14.0-18.0); LYMPHOCYTES # (AUTO) 1.2 K/uL (1.0-5.5); LYMPHOCYTES % (AUTO) 16.2 % (20.5-51.5); MEAN CORPUSCULAR HEMOGLOBIN 29 pg (27-31); MEAN CORPUSCULAR HGB CONC 32 % (32-36); MEAN CORPUSCULAR VOLUME 91 fL (79.0-98.0); MONOCYTES # (AUTO) 0.5 K/uL (0.0-1.0); MONOCYTES % (AUTO) 7.5 % (1.7-9.3); NEUTROPHILS # (AUTO) 5.3 K/uL (1.8-7.7); NEUTROPHILS % (AUTO) 73.5 % (40.0-70.0); PLATELET COUNT (AUTO) 183 K/uL (130-430); RED BLOOD CELL COUNT(AUTO) 2.84 MIL/uL (4.2-6.2); RED CELL DISTRIBUTION WIDTH 18.2 % (9.0-15.0); WHITE BLOOD COUNT (AUTO) 7.2 K/uL (4.8-10.8)
[2018-05-06 07:45] VITALS: BP_SYST 132
--- NOTE | 2018-05-06 09:05 | NUR ---
PT WITH PATIENT
[2018-05-06] MEDS: SEVELAMER HCL 800 MG TABLET PO SCH ×3 (09:08→17:18)
[2018-05-06] MEDS: ALLOPURINOL 100 MG TABLET (ZYLOPRIM) PO SCH (09:08)
[2018-05-06] MEDS: NEPHROVITE, (FOLIC ACID/VITAMIN B COMP W-C 1 TAB) PO SCH (09:08)
[2018-05-06] MEDS: ATORVASTATIN 20 MG TABLET PO SCH (09:08)
[2018-05-06] MEDS: ASCORBIC ACID 500 MG TABLET PO SCH (09:08)
[2018-05-06] MEDS: CHOLECALCIFEROL (VITAMIN D3) 2,000 UNIT TABLET PO SCH (09:08)
[2018-05-06] MEDS: ISOSORBIDE MONONITRATE 30 MG TAB.ER.24H PO SCH (09:09)
[2018-05-06] MEDS: CARVEDILOL 12.5 MG TABLET (COREG) PO SCH ×2 (09:09→20:17)
[2018-05-06] MEDS: TAMSULOSIN HCL 0.4 MG CAP PO SCH (09:09)
[2018-05-06] MEDS: BALSAM PERU/CASTOR OIL 60 GM OINT...G. TP SCH (09:10)
--- NOTE | 2018-05-06 09:56 | NUR ---
CARINA FALCON Seen and exam by Dr. handy with chest x-ray order on Monday.
--- NOTE | 2018-05-06 10:00 | NUR ---
ADJUSTED O2 Per Dr. Ramos to adjust O2 from 3L/min to 2L/min via oxymizer. Will continue to monitor.
[2018-05-06 11:40] VITALS: BP_SYST 147
--- NOTE | 2018-05-06 11:48 | NUR ---
DC PLANNING Called & spoke w Kathryn @ [facility], ph [phone], states pt needs re-eval. Clara is covering Jessica tomorrow & will be in to re-eval pt tomorrow. Clara ph [phone].
--- NOTE | 2018-05-06 11:52 | NUR ---
ROUND Patient resting in the bed. No acute distress. Continue O2 2L/min via oxymizer. O2 sat=95% at this time. Left chest tube intact. Safety measure maintained. Bed locked in low position, side rails up. Call light within reached. Continue to monitor.
[2018-05-06] MEDS: CEFEPIME 1 GM in D5W 50 ML IV SCH (12:10)
[2018-05-06] MEDS: INSULIN REGULAR, HUMAN 100 UNITS/ML, 10 ML VIAL (humuLIN R) SUBCUT PRN ×2 (12:18→20:24)
--- NOTE | 2018-05-06 13:20 | NUR ---
ROUND Patient resting in the bed. No acute distress. No SOB. Continue O2 2L/min via oxymizer. Left chest tube intact. Safety measure maintained. Bed locked in low position, side rails up. Call light within reached. Continue to monitor.
--- NOTE | 2018-05-06 14:07 | NUR ---
ID MD DR LEUNG WAS CALLED, DR MCDONALD WATER VESSEL CAPTAIN RE: RENEWAL OF ANTIBIOTICS. SPOKE TO YVETTE
--- NOTE | 2018-05-06 15:10 | NUR ---
ROUND Patient resting in the bed with eyes closed. No acute distress. Respiration even and unlabored. Continue O2 2L/min via oxymizer. Left chest tube intact bubble in the chamber. Safety measure maintained. Bed locked in low position, side rails up. Call light within reached. Continue to monitor.
[2018-05-06 15:55] VITALS: BP_SYST 141
--- NOTE | 2018-05-06 18:30 | NUR ---
CLOSING NOTE Patient resting in the bed. Respiration even and unlabored. On O2 2L/min via oxizymer. Skin warm and dry to touch. SL intact to RFA, no redness, no swelling, patent. AV shunt intact to COLLIN with thrill/bruit present, no bleeding. Left chest tube intact to 20cm water seal with bubbling, intact with clean and dry dressing, no bleeding. Safety measure maintained. Bed locked in low position, side rails up, bed alarm on. Call light within reached. Will endorse to shift engineer nurse.
[2018-05-06 19:49] VITALS: BP_SYST 142
--- NOTE | 2018-05-06 19:49 | NUR ---
INITIAL NOTE AT INITIAL ASSESSMENT, PATIENT IS RESTING IN BED, STABLE, NO SIGNS OF RESPIRATORY DISTRESS. PATIENT IS AO X 1. PATIENT VERBALIZES NO PAIN. PLAN OF CARE FOR THE EVENING IS COMMUNICATED WITH THE PATIENT. BED IS LOCKED, ALARMED, AND AT THE LOWEST LEVEL. FALL, SAFETY, AND RESPIRATORY PRECAUTIONS WILL BE IN PLACE THROUGHOUT THE SHIFT.
[2018-05-06] MEDS: HYDROcodone/ACETAMIN 5-325 MG TAB (NORCO/ VICODIN) PO PRN (21:09)
--- NOTE | 2018-05-06 21:46 | NUR ---
NOTE PATIENT IS RESTING IN BED, STABLE, NO SIGNS OF RESPIRATORY DISTRESS. CALL LIGHT IS WITHIN REACH. BED IS LOCKED, ALARMED, AND AT THE LOWEST LEVEL.
--- NOTE | 2018-05-06 23:45 | NUR ---
NOTE PATIENT IS RESTING IN BED, STABLE, NO SIGNS OF RESPIRATORY DISTRESS. HE IS STILL SHOUTING NON STOP ALTHOUGH ALL NEEDS HAVE BEEN MET. CALL LIGHT IS WITHIN REACH. BED IS LOCKED, ALARMED, AND AT THE LOWEST LEVEL.
[2018-05-07 01:26] VITALS: BP_SYST 133
[2018-05-07] MEDS: IPRATROPIUM/ALBUTEROL SULFATE 3 ML AMPUL.NEB (DUONEB) INH SCH ×3 (01:31→14:00)
--- NOTE | 2018-05-07 01:42 | NUR ---
NOTE PATIENT IS RESTING IN BED, STABLE, NO SIGNS OF RESPIRATORY DISTRESS. CALL LIGHT IS WITHIN REACH. BED IS LOCKED, ALARMED, AND AT THE LOWEST LEVEL.
--- NOTE | 2018-05-07 03:37 | NUR ---
NOTE PATIENT IS RESTING IN BED, STABLE, NO SIGNS OF RESPIRATORY DISTRESS. CALL LIGHT IS WITHIN REACH. BED IS LOCKED, ALARMED, AND AT THE LOWEST LEVEL.
--- NOTE | 2018-05-07 04:12 | NUR ---
NOTE PATIENT IS RESTING IN BED, STABLE, NO SIGNS OF RESPIRATORY DISTRESS. CALL LIGHT IS WITHIN REACH. BED IS LOCKED, ALARMED, AND AT THE LOWEST LEVEL.
--- NOTE | 2018-05-07 05:36 | NUR ---
VISUAL HALLUCINATIONS PATIENT IS HAVING VISUAL HALLUCINATIONS, HE IS YELLING "HELP ME GET INTO THE BELLY OF THE HELICOPTER, I'M GOING ON A MISSION! DON'T YOU SEE THE HELICOPTER?!" EFFORTS TO REORIENT THE PATIENT WERE UNSUCCESSFUL. PATIENT IS RESTING IN BED, STABLE, NO SIGNS OF RESPIRATORY DISTRESS. CALL LIGHT IS WITHIN REACH. BED IS LOCKED, ALARMED, AND AT THE LOWEST LEVEL.
[2018-05-07] MEDS: INSULIN REGULAR, HUMAN 100 UNITS/ML, 10 ML VIAL (humuLIN R) SUBCUT PRN ×3 (06:38→21:45)
[2018-05-07 06:50] LABS: BASOPHILS % (AUTO) 0.4 % (0.0-2.0); EOSINOPHILS # (AUTO) 0.2 K/uL (0.0-0.4); EOSINOPHILS % (AUTO) 1.9 % (0.0-4.0); HEMOGLOBIN 8.2 g/dL (14.0-18.0); LYMPHOCYTES % (AUTO) 11.2 % (20.5-51.5); MEAN CORPUSCULAR HEMOGLOBIN 29 pg (27-31); MEAN CORPUSCULAR HGB CONC 32 % (32-36); MEAN CORPUSCULAR VOLUME 90 fL (79.0-98.0); MONOCYTES # (AUTO) 0.6 K/uL (0.0-1.0); MONOCYTES % (AUTO) 6.2 % (1.7-9.3); NEUTROPHILS # (AUTO) 7.2 K/uL (1.8-7.7); NEUTROPHILS % (AUTO) 80.3 % (40.0-70.0); PLATELET COUNT (AUTO) 204 K/uL (130-430); RED BLOOD CELL COUNT(AUTO) 2.88 MIL/uL (4.2-6.2)
--- NOTE | 2018-05-07 06:54 | NUR ---
CLOSING NOTE PATIENT YELLED THROUGHOUT THE NIGHT, EVEN WHEN STAFF ARE WITH THE PATIENT, HE YELLS FOR HELP. EFFORTS TO REORIENT PATIENT WERE WITH NO SUCCESS. PATIENT HAD HALLUCINATIONS DURING THE NIGHT, VERBALIZING "I'M OUT OF BULLETS", "HELP ME I'M OUT OF FISH", "HELP ME GET INTO THE BELLY OF THE HELICOPTER". BLOOD SUGAR AT THIS TIME REQUIRES INSULIN COVERAGE PER SSI ORDERED BY MD. PATIENT IS RESTING IN BED, STABLE, NO SIGNS OF RESPIRATORY DISTRESS. CALL LIGHT WITHIN REACH. BED IS LOCKED, ALARMED, AND AT THE LOWEST LEVEL. WILL CONTINUE TO MONITOR UNTIL SHIFT REPORT IS GIVEN AT BEDSIDE TO AM NURSE. FALL, SAFETY, AND RESPIRATORY PRECAUTIONS HAVE BEEN IN PLACE THROUGHOUT SHIFT.
[2018-05-07 07:03] LABS: CALCIUM 9.1 mg/dL (8.4-11.0); CREATININE 6.17 mg/dL (0.55-1.30); POTASSIUM 3.8 mmol/L (3.5-5.1)
[2018-05-07 07:55] VITALS: BP_SYST 144
--- NOTE | 2018-05-07 08:00 | NUR ---
am assessment received pt in bed. a/ox2. denies any pain or discomfort.vitals stable. fall and safety precaution maintained. not in acute distress. l chest tube intact with 20 cm water seal with bubbling. left side chest tube dressing clean dry and intact. pt repostioned with pillow.encouraged pt to do deep breathing and incentive spirometer. pt is doing 500 at this time. not in acute distresswill continue to monitor
[2018-05-07] MEDS: CHOLECALCIFEROL (VITAMIN D3) 2,000 UNIT TABLET PO SCH (08:45)
[2018-05-07] MEDS: ATORVASTATIN 20 MG TABLET PO SCH (08:46)
[2018-05-07] MEDS: ASCORBIC ACID 500 MG TABLET PO SCH (08:46)
[2018-05-07] MEDS: SEVELAMER HCL 800 MG TABLET PO SCH ×3 (08:46→18:00)
[2018-05-07] MEDS: NEPHROVITE, (FOLIC ACID/VITAMIN B COMP W-C 1 TAB) PO SCH (08:47)
[2018-05-07] MEDS: TAMSULOSIN HCL 0.4 MG CAP PO SCH (08:47)
[2018-05-07] MEDS: ALLOPURINOL 100 MG TABLET (ZYLOPRIM) PO SCH (08:47)
[2018-05-07] MEDS: ISOSORBIDE MONONITRATE 30 MG TAB.ER.24H PO SCH (08:48)
[2018-05-07] MEDS: CARVEDILOL 12.5 MG TABLET (COREG) PO SCH ×2 (08:51→21:40)
[2018-05-07] MEDS ORDERED: metroNIDAZOLE 500 mg/NS 100 ML IV ONE (11:00)
--- NOTE | 2018-05-07 11:00 | NUR ---
ROUNDS PATIENT IS RESTING IN BED, STABLE, NO SIGNS OF RESPIRATORY DISTRESS. CALL LIGHT IS WITHIN REACH. BED IS LOCKED, ALARMED, AND AT THE LOWEST LEVEL. REPOSTIONES WITH PILLOW. CONTINUE TOMONITOR
[2018-05-07] MEDS ORDERED: SEVOFLURANE 15 MIN GAS INH ONE (11:30)
[2018-05-07] MEDS ORDERED: fentaNYL CITRATE/PF 100 MCG/2 ML AMP IVP ONE (11:30)
[2018-05-07] MEDS ORDERED: WATER FOR IRRIGATION,STERILE 1,000 ML IRRIG.SOLN IR ONE (11:30)
[2018-05-07] MEDS ORDERED: CEFAZOLIN 1 GM IVPB PREMIX 50 ML IV ONE (11:30)
[2018-05-07] MEDS ORDERED: GLYCOPYRROLATE 0.2 MG/ML VIAL IJ ONE (11:30)
[2018-05-07] MEDS ORDERED: ROCURONIUM BROMIDE 10 MG/ML (ZEMURON) IV ONE (11:30)
[2018-05-07] MEDS ORDERED: PROPOFOL 200MG/ 20ML VIAL (DIPRIVAN) IV ONE (11:30)
[2018-05-07] MEDS ORDERED: BACITRACIN 50,000 UNITS VIAL IM ONE (11:30)
[2018-05-07] MEDS ORDERED: LIDOCAINE 1% 10 MG/ML, 20 ML MDV IM ONE (11:30)
[2018-05-07] MEDS ORDERED: NEOSTIGMINE METHYLSULFATE 1 MG/ML, 10 ML VIAL IM ONE (11:30)
[2018-05-07] MEDS ORDERED: PHENYLEPHRINE HCL 10 MG/ML VIAL (NEOSYNEPHRINE) IV ONE (11:30)
[2018-05-07] MEDS ORDERED: MIDAZOLAM HCL 5 MG/5 ML VIAL IVP ONE (11:30)
[2018-05-07] MEDS: BALSAM PERU/CASTOR OIL 60 GM OINT...G. TP SCH (12:09)
[2018-05-07] MEDS: CEFEPIME 1 GM in D5W 50 ML IV SCH (12:24)
[2018-05-07 12:37] VITALS: BP_SYST 134
--- NOTE | 2018-05-07 13:00 | NUR ---
ROUNDS PT STABEL NOT IN ACUTE DISTRESS. HAVING DIALYSIS. VITALS STABLE TOLERATING WELL. WILL CONTINUE TO MONITOR
--- NOTE | 2018-05-07 13:03 | NUR ---
DC Planning: per Clara, the pt. is accepted clinically and financially for LTAC admission. Pt's dtr is deciding [facility] vs. [place] at this time. Dtr does not want pt. going back to [facility]. Dr. Jo made aware and is pending the md's transfer order.
--- NOTE | 2018-05-07 14:05 | NUR ---
WOUND RE-EVALUATION: Patient received in a Daniel Bed with an IsoFlex DEEPTHI mattress, awake, alert, and oriented x 4, forgetful. Patient is unable to turn in bed independently. Nelson Score is a 17. Microbiology: Blood culture results x4 negative. Pleural body fluid and aspiration cultures/fungal cultures in progress. Intrinsic factors that delay wound healing: Diabetes mellitus, hypoalbuminemia, peripheral vascular disease, chronic anemia, protein malnutrition. Extrinsic factors that delay wound healing: Decreased mobility. Wound Assessment: 1. Left heel: Unstageable pressure ulcer, present on admission. Wound care performed by hourly shift manager nurse this morning. Dressing not removed for assessment secondary to doing so would decrease wound temperature and retard wound healing rate. Recommend continue: Cleanse wound with normal saline. Apply moisture barrier cream to periwound. Apply Venelex ointment to open wound bed. Cover with foam dressing. Elevate, offload and float heel with one pillow lengthwise under calf at all times. 2. Left plantar foot at first metatarsal head: Chronic Diabetic/Neuropathic foot ulcer, present on admission. Site not assessed. Recommend continue: No dressing needed. Continue to monitor site for worsening condition. Contact wound care nurse if site opens, drains, or worsens. 3. Buttocks: Erythema from IAD, present on admission. Site not assessed. Recommend continue: Cleanse involved area with mild soap and water. Pat dry. Apply moisture barrier cream to involved areas. Perform site care 4 times a day, and as needed for soiling. 4. Left superior knee: Chronic wound, present on admission. Site not assessed. 5. Left mid knee: Chronic wound, present on admission. Site not assessed. 6. Left inferior knee: Chronic wound, present on admission. Site not assessed. Recommend continue: No dressings needed. Continue to monitor sites for worsening condition. Contact wound care nurse if sites open, drain, or worsen. Also recommend continue: Encourage and assist patient as needed with repositioning side to side only every 2 hours with pillow support, and off-load pressure areas with pillows for pressure re-distribution. Offload, elevate and float left heel and right residual limb with pillows. Perform skin care and monitor skin integrity Q shift. Use moisture barrier cream on buttocks and other moisture susceptible areas QID and as needed for soiling. Maintain patient on low air-loss therapy.
[2018-05-07 15:16] VITALS: BP_SYST 147
--- NOTE | 2018-05-07 20:12 | NUR ---
Initial note: Received report from dayshift RN. Patient is awake in bed, does not show any acute distress. Respirations even, unlabored on 2L Oximizer. Chest tube draining to gravity, brown fluids noted in canister. Chest tube dressing clean, dry, intact. IV site to left forearm is patent and benign. Call light with patient. Safety, fall precautions in place. Will continue with plan of care.
[2018-05-07 20:55] VITALS: BP_SYST 131
[2018-05-07] MEDS: HYDROcodone/ACETAMIN 5-325 MG TAB (NORCO/ VICODIN) PO PRN (21:40)
[2018-05-07] MEDS: metroNIDAZOLE 500 mg/NS 100 ML IV SCH (21:41)
--- NOTE | 2018-05-07 21:45 | NUR ---
Blood glucose: Patient's blood glucose at this time is 185. 2 units regular insulin administered subcutaneously per MD-ordered sliding scale. Call light with patient. Will continue monitoring.
--- NOTE | 2018-05-07 23:57 | NUR ---
Rounds: Patient is awake in bed, no acute distress. 2L Oximizer in place, patient tolerating well, chest tube draining well to gravity. Call light with patient. Will continue to monitor.
[2018-05-08 00:53] VITALS: BP_SYST 136
[2018-05-08] MEDS: IPRATROPIUM/ALBUTEROL SULFATE 3 ML AMPUL.NEB (DUONEB) INH SCH ×4 (01:11→19:38)
--- NOTE | 2018-05-08 02:03 | NUR ---
Rounds: Patient is in bed, does not show any signs of acute distress. Breathing is even, unlabored on 2L oximizer. Call light with patient. Will continue monitoring.
[2018-05-08] MEDS: DIPHENHYDRAMINE HCL 50 MG CAPSULE PO PRN (03:32)
[2018-05-08] MEDS: ACETAMINOPHEN 325 MG TABLET PO PRN (03:33)
--- NOTE | 2018-05-08 05:00 | NUR ---
Wound care: Performed wound care at this time. Patient tolerated well. Call light with patient. Will continue to monitor.
--- NOTE | 2018-05-08 06:45 | NUR ---
Closing note: Patient is awake in bed yelling. No respiratory distress noted. IV site to left forearm remains patent, benign. Most recent blood sugar was 93, no insulin administered per MD-ordered sliding scale. Chest tube drainage at 65 ML, total drainage output for last night was 10 ML. All needs met. Will endorse care to dayshift RN.
[2018-05-08 07:46] VITALS: BP_SYST 135
--- NOTE | 2018-05-08 07:48 | NUR ---
INITIAL NOTE RECEIVED PATIENT FROM COMPUTER SCIENCE INTERN. PATIENT IS AWAKE. A/OX2. CONT ON O2@2L/M VIA OXIMIZER, KALEIGH WELL. NO ACUTE DISTRESS. NO SOB. RESPIRATION EVEN AND UNLABORED. SKIN WARM AND DRY TO TOUCH. IV INTACT AND PATENT. AV SHUNT TO LEFT UPPER ARM WITH DRESSING C/D/I. NOTED LEFT CHEST TUBE DRAINING DARK REDDISH/BROWN DRAINAGE BY GRAVITY. PATIENT WITH RIGHT BKA AND LEFT PARTIAL FOOT AMPUTATION. BED IN LOW AND LOCKED POSITION. SIDERAIL UPX3. BED ALARM ON. ALL NEEDS MET. CALL LIGHT IN REACH. CONT TO MONITOR.
[2018-05-08] MEDS: SEVELAMER HCL 800 MG TABLET PO SCH ×3 (08:22→17:52)
[2018-05-08] MEDS: metroNIDAZOLE 500 mg/NS 100 ML IV SCH ×2 (08:22→20:23)
[2018-05-08] MEDS: ATORVASTATIN 20 MG TABLET PO SCH (08:22)
[2018-05-08] MEDS: ASCORBIC ACID 500 MG TABLET PO SCH (08:23)
[2018-05-08] MEDS: CARVEDILOL 12.5 MG TABLET (COREG) PO SCH ×2 (08:23→20:24)
[2018-05-08] MEDS: ISOSORBIDE MONONITRATE 30 MG TAB.ER.24H PO SCH (08:24)
[2018-05-08] MEDS: NEPHROVITE, (FOLIC ACID/VITAMIN B COMP W-C 1 TAB) PO SCH (08:24)
[2018-05-08] MEDS: CHOLECALCIFEROL (VITAMIN D3) 2,000 UNIT TABLET PO SCH (08:24)
[2018-05-08] MEDS: ALLOPURINOL 100 MG TABLET (ZYLOPRIM) PO SCH (08:24)
[2018-05-08] MEDS: TAMSULOSIN HCL 0.4 MG CAP PO SCH (08:24)
[2018-05-08] MEDS: BALSAM PERU/CASTOR OIL 60 GM OINT...G. TP SCH (08:25)
--- NOTE | 2018-05-08 08:30 | NUR ---
MEDS ALL DUE MEDS ADMINISTERED ORDERED, KALEIGH WELL. CONT TO MONITOR
--- NOTE | 2018-05-08 10:19 | NUR ---
NOTE ASSISTED ASSISTANT ACCOUNTING MANAGER WITH INCONTINENCE CARE. BMX1 SMALL SOFT. KEPT CLEAN AND DRY. REPOSITIONED FOR COMFORT. CONT TO MONITOR. CALL LIGHT IN REACH.
[2018-05-08] MEDS: CEFEPIME 1 GM in D5W 50 ML IV SCH (10:56)
--- NOTE | 2018-05-08 11:10 | NUR ---
SEEN AND EXAMINED BY AT BEDSIDE. REMOVED CHEST TUBE AT BEDSIDE, PATIENT KALEIGH WELL. LUBRICANT WITH 4X4 DRESSING APPLIED AND SECURED BY MD. INSTRUCTIONS GIVEN TO PATIENT BY MD WITH STAT CXR ORDERED TO FOLLOW UP CHEST TUBE REMOVAL.
[2018-05-08 11:38] VITALS: BP_SYST 145
--- NOTE | 2018-05-08 11:40 | NUR ---
/CXR EXAMINED PATIENT'S STAT CXR AND CLEARED PATIENT. INSTRUCTIONS NOT TO SHOWER X4 DAYS, FOLLOW UP WITH IN OFFICE IN 2-3 WEEKS AND WRITTEN PRESCRIPTION FOR NORCO PRN PAIN MGMT. CALLED PATIENT'S DAUGHTER ADIEL AND INFORMED HER OF CHEST TUBE REMOVAL, S/P CHEST TUBE REMOVAL CARE, F/U APPT AND NORCO PRESCRIPTION.
[2018-05-08] MEDS: INSULIN REGULAR, HUMAN 100 UNITS/ML, 10 ML VIAL (humuLIN R) SUBCUT PRN ×2 (12:46→20:46)
--- NOTE | 2018-05-08 12:50 | NUR ---
BLOOD GLUCOSE PATIENT BLOOD GLUCOSE 153 mg/dL WITH INSULIN ADMINISTERED ORDERED. PATIENT REQUESTED SUBSTITUTE AND ATE LUNCH BEFORE ADMINISTERING INSULIN, KALEIGH WELL. ALL NEEDS MET. CONT TO MONITOR
--- NOTE | 2018-05-08 14:30 | NUR ---
NOTE PATIENT RESTING IN BED; EASILY AROUSABLE. NO ACUTE DISTRESS. NO SOB. KEPT CLEAN AND DRY. DRESSING TO S/P LEFT CHEST TUBE REMOVAL C/D/I. CONT TO MONITOR. CALL LIGHT IN REACH
[2018-05-08 15:37] VITALS: BP_SYST 145
--- NOTE | 2018-05-08 16:00 | NUR ---
NOTE PATIENT AWAKE IN BED. REPOSITIONED FOR COMFORT. ALL NEEDS MET. KEPT CLEAN AND DRY. CONT TO MONITOR
--- NOTE | 2018-05-08 18:07 | NUR ---
BLOOD GLUCOSE IS 126 mg/dL WITH NO INSULIN COVERAGE NEEDED. DAUGHTER AT BEDSIDE ASSISTING WITH PATIENT'S DINNER. PATIENT KALEIGH WELL. ALL NEEDS MET. CONT TO MONITOR. CALL LIGHT IN REACH
--- NOTE | 2018-05-08 18:45 | NUR ---
CLOSING NOTE PATIENT AWAKE IN BED WITH DAUGHTER AT BEDSIDE. DENIES PAIN. NO ACUTE DISTRESS. NO SOB. RESP EVEN AND UNLABORED. SKIN WARM AND DRY TO TOUCH. IV INTACT AND PATENT. DRESSING TO LEFT LAT CHEST C/D/I. DRESSING TO WOUND CARE C/D/I. KEPT CLEAN AND DRY. ALL NEEDS MET. CALL LIGHT IN REACH. CONT TO MONITOR. WILL ENDORSE TO ONCOMING SHIFT.
--- NOTE | 2018-05-08 19:49 | NUR ---
Initial note: Received report from dayshift RN. Patient is resting in bed quietly, no acute distress noted. 2L oximizer noted, patient tolerating well. Saline locked IV noted to patient's right forearm, site is patent and benign. 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 Wound dressings to patient's right wrist and left heel are clean, dry, intact. Dressing to D/C'd chest tube site is clean, dry, intact. Safety and fall precautions in place. Call light with patient, patient's room is close to nursing station. Will continue with plan of care.
[2018-05-08 20:24] VITALS: BP_SYST 140
--- NOTE | 2018-05-08 20:46 | NUR ---
Blood glucose: Patient's blood glucose at this time is 194. 2 units of sliding scale regular insulin administered subcutaneously per MD order. Patient tolerated well. Call light with patient. Will continue monitoring.
[2018-05-09 00:12] VITALS: BP_SYST 144
--- NOTE | 2018-05-09 00:23 | NUR ---
Rounds: Patient is awake, watching TV. No acute respiratory distress. Tolerating 2L oximizer. Call light is with patient. Will continue to monitor.
[2018-05-09] MEDS: IPRATROPIUM/ALBUTEROL SULFATE 3 ML AMPUL.NEB (DUONEB) INH SCH ×3 (00:54→13:00)
--- NOTE | 2018-05-09 02:40 | NUR ---
Wound care: Performed wound care at this time. Patient tolerated well. Call light is with patient. Will continue to monitor.
--- NOTE | 2018-05-09 06:31 | NUR ---
Closing note: Patient is awake in bed. No respiratory distress noted. 2L oximizer remains in place, patient tolerating well. IV to patient's right forearm remains patent, benign. Most recent blood sugar was 71. All needs met. Call light is with patient. Safety, fall precautions in place. Will endorse care to dayshift RN.
[2018-05-09 07:44] VITALS: BP_SYST 134
--- NOTE | 2018-05-09 07:47 | NUR ---
INITIAL NOTE RECEIVED PATIENT FROM GLOVE SEWER. PATIENT AWAKE IN BED. ALERT AND CONFUSED. ABLE TO MAKE NEEDS KNOWN. CONT ON O2@3L/M VIA OXIMIZER, KALEIGH WELL. NO ACUTE DISTRESS. NO SOB. RESP EVEN AND UNLABORED. SKIN WARM AND DRY TO TOUCH. LEFT UPPER ARM AV SHUNT INTACT AND PATENT. IV INTACT AND PATENT. PATIENT WITH RIGHT BKA AND LEFT FOOT PARTIAL AMPUTATION. BED IN LOW AND LOCKED POSITION. SIDERAIL UPX3. BED ALARM ON. ALL NEEDS MET. REPOSITIONED FOR COMFORT. CALL LIGHT IN REACH. CONT TO MONITOR
[2018-05-09] MEDS: metroNIDAZOLE 500 mg/NS 100 ML IV SCH (08:26)
[2018-05-09] MEDS: SEVELAMER HCL 800 MG TABLET PO SCH ×2 (08:26→11:59)
[2018-05-09] MEDS: CHOLECALCIFEROL (VITAMIN D3) 2,000 UNIT TABLET PO SCH (08:27)
[2018-05-09] MEDS: CARVEDILOL 12.5 MG TABLET (COREG) PO SCH (08:27)
[2018-05-09] MEDS: NEPHROVITE, (FOLIC ACID/VITAMIN B COMP W-C 1 TAB) PO SCH (08:27)
[2018-05-09] MEDS: ISOSORBIDE MONONITRATE 30 MG TAB.ER.24H PO SCH (08:27)
[2018-05-09] MEDS: ALLOPURINOL 100 MG TABLET (ZYLOPRIM) PO SCH (08:27)
[2018-05-09] MEDS: TAMSULOSIN HCL 0.4 MG CAP PO SCH (08:28)
[2018-05-09] MEDS: ATORVASTATIN 20 MG TABLET PO SCH (08:28)
[2018-05-09] MEDS: ASCORBIC ACID 500 MG TABLET PO SCH (08:28)
[2018-05-09] MEDS: BALSAM PERU/CASTOR OIL 60 GM OINT...G. TP SCH (08:28)
--- NOTE | 2018-05-09 08:30 | NUR ---
MEDS ALL DUE MEDS ADMINISTERED, KALEIGH WELL. ALL NEEDS MET. CALL LIGHT IN REACH. CONT TO MONITOR
--- NOTE | 2018-05-09 10:45 | NUR ---
NOTE PATIENT CALLED TO RAISE HOB UP. ALL NEEDS ME. CALL LIGHT IN REACH. CONT TO MONITOR
[2018-05-09 11:35] VITALS: BP_SYST 141
[2018-05-09] MEDS: CEFEPIME 1 GM in D5W 50 ML IV SCH (11:59)
[2018-05-09] MEDS: INSULIN REGULAR, HUMAN 100 UNITS/ML, 10 ML VIAL (humuLIN R) SUBCUT PRN (12:01)
--- NOTE | 2018-05-09 12:10 | NUR ---
BLOOD GLUCOSE IS 161 mg/dL WITH INSULIN COVERAGE ORDERED, KALEIGH WELL. YARDING SUPERVISOR ASSISTED PATIENT WITH LUNCH. ALL NEEDS MET. CONT TO MONITOR
--- NOTE | 2018-05-09 12:15 | NUR ---
DC Planning: Received call from Clara that the pt. has bed available at [facility], bed is available now . The pt. is assigned to room# 314B , RN to report # [phone]. Informed dr. Jo and requested the dc order to dc pt. today. TO Hess made aware.
--- NOTE | 2018-05-09 14:00 | NUR ---
wound care WOUND CARE PROVIDED AND KALEIGH WELL. PATIENT DENIED PAIN. ALL NEEDS MET. CALL LIGHT IN REACH. CONT TO MONITOR
--- NOTE | 2018-05-09 15:30 | NUR ---
NOTE ASSISTED LIGHT OIL OPERATOR WITH INCONTINENCE CARE. REPOSITIONED FOR COMFORT WITH PILLOWS. ALL NEEDS MET. CALL LIGHT IN REACH. CONT TO MONITOR
[2018-05-09 15:32] VITALS: BP_SYST 133
[2018-05-09 15:38] VITALS: BP_SYST 133
--- NOTE | 2018-05-09 15:50 | NUR ---
REPORT SPOKE TO MATILDE RN AT [facility] AND REPORT GIVEN. PATIENT WILL BE GOING TO 314[address] AND PICKED UP BY [facility] @[id number]
--- NOTE | 2018-05-09 16:00 | NUR ---
RESP GREEN PARTY SPOKE TO DAUGHTER MARCEL AND OKAY TO TRANSFER PATIENT TO [facility] TODAY. SECOND NURSE LEANN CONFIRMED CONSENT.
--- NOTE | 2018-05-09 16:25 | NUR ---
SPOKE TO AND INFORMED MD PATIENT HAS NOT HAD DIALYSIS TODAY YET BUT HAS A BED OPEN AT [facility] AND MAY LOSE THE BED IF NOT TRANSFERRED TODAY AND MATILDE BAEZA FROM [facility] STATED THE PATIENT WONT BE ABLE TO HAVE DIALYSIS THERE TODAY. PER PATIENT OKAY TO HAVE DIALYSIS TOMORROW AT [facility] AND OKAY TO TRANSFER PATIENT TODAY
--- NOTE | 2018-05-09 17:04 | NUR ---
PT TRANSFERRED Report given to Stephenie BAEZA at [facility]. Transfer packet with Transfer Orders and Medication Reconciliation form given to EMT with report. Exitcare provided. [facility] ID band removed, replaced with ID band with pt's name and . IV catheter to RFA intact and patent and AV shunt to left upper arm dressing C/D/I. All belongings sent with patient. Patient left floor via gurney escorted by EMT in no distress.
== END 2018-05-09 17:05 | DRG 163 ==
LOC: SED 13:21 → STU 14:48 → SMU 04-24 21:46 → SIC 05-03 14:39 → STU 05-05 16:36
PROVIDERS: ADMIT Family Medicine; ATTEND Family Medicine
PROC: 5A1D70Z Performance of Urinary Filtration, Intermittent, Less than 6 Hours Per Day (ICD-10-PCS; 2018-04-24)
PROC: 5A1D70Z Performance of Urinary Filtration, Intermittent, Less than 6 Hours Per Day (ICD-10-PCS; 2018-04-25)
PROC: 5A1D70Z Performance of Urinary Filtration, Intermittent, Less than 6 Hours Per Day (ICD-10-PCS; 2018-04-27)
PROC: 5A1D70Z Performance of Urinary Filtration, Intermittent, Less than 6 Hours Per Day (ICD-10-PCS; 2018-04-30)
PROC: 5A1D70Z Performance of Urinary Filtration, Intermittent, Less than 6 Hours Per Day (ICD-10-PCS; 2018-05-02)
PROC: 0BNL4ZZ Release Left Lung, Percutaneous Endoscopic Approach (ICD-10-PCS; 2018-05-03)
PROC: 0B9L8ZX Drainage of Left Lung, Via Natural or Artificial Opening Endoscopic, Diagnostic (ICD-10-PCS; 2018-05-03)
PROC: 3E0L3GC Introduction of Other Therapeutic Substance into Pleural Cavity, Percutaneous Approach (ICD-10-PCS; 2018-05-03)
PROC: 3E0T3BZ Introduction of Anesthetic Agent into Peripheral Nerves and Plexi, Percutaneous Approach (ICD-10-PCS; 2018-05-03)
PROC: 0BBP4ZX Excision of Left Pleura, Percutaneous Endoscopic Approach, Diagnostic (ICD-10-PCS; principal; 2018-05-03 11:30)
PROC: 5A1D70Z Performance of Urinary Filtration, Intermittent, Less than 6 Hours Per Day (ICD-10-PCS; 2018-05-04)
PROC: 5A1D70Z Performance of Urinary Filtration, Intermittent, Less than 6 Hours Per Day (ICD-10-PCS; 2018-05-07)
DX: J15.6 Pneumonia due to other Gram-negative bacteria (principal); J96.91 Respiratory failure, unspecified with hypoxia; N18.6 End stage renal disease; E43 Unspecified severe protein-calorie malnutrition; G93.41 Metabolic encephalopathy; J90 Pleural effusion, not elsewhere classified; I13.2 Hypertensive heart and chronic kidney disease with heart failure and with stage 5 chronic kidney disease, or end stage renal disease; I27.20 Pulmonary hypertension, unspecified; Z99.2 Dependence on renal dialysis; M10.9 Gout, unspecified; E11.22 Type 2 diabetes mellitus with diabetic chronic kidney disease; E11.51 Type 2 diabetes mellitus with diabetic peripheral angiopathy without gangrene; D63.1 Anemia in chronic kidney disease; N40.0 Benign prostatic hyperplasia without lower urinary tract symptoms; I50.9 Heart failure, unspecified; F17.210 Nicotine dependence, cigarettes, uncomplicated; E78.5 Hyperlipidemia, unspecified; K21.9 Gastro-esophageal reflux disease without esophagitis; Z91.041 Radiographic dye allergy status; Z88.8 Allergy status to other drugs, medicaments and biological substances; Z89.511 Acquired absence of right leg below knee; Z86.73 Personal history of transient ischemic attack (TIA), and cerebral infarction without residual deficits; Z87.01 Personal history of pneumonia (recurrent); Z79.899 Other long term (current) drug therapy; Z79.02 Long term (current) use of antithrombotics/antiplatelets; Z89.432 Acquired absence of left foot; Z68.23 Body mass index [BMI] 23.0-23.9, adult
CPT/HCPCS: 32555; 36415; 36600; 70450-TC; 71045; 71250-TC; 80048; 80053; 80076; 82150-TC; 82550-TC; 82803-TC; 82947-TC; 82962; 83605; 83615-TC; 83690-TC; 84157-TC; 84484; 85025; 85610-TC; 85651-TC; 85730-TC; 86886; 86900; 86901; 86920; 87040-TC; 87070-TC; 87075-TC; 87081; 87101; 87116; 88108; 88305; 89051-TC; 89060-TC; 90935; 90937; 93005; 93306; 93880; 94640; 94760; 96365; 96375; 97110-GP; 97530-GP; 99285; C1727; C1729; C1751; C1887; G0378; J0456; J0610; J0690; J0692; J0885; J1200; J1815; J1956; J2001; J2250; J2370; J2543; J2704; J2710; J2930; J3010; J3370; J3490; J7030; J7040; J7050; J7060; J7613; J7620; Q0163